=== PATIENT | female | born 1970 | race Caucasian/White ===

== ENCOUNTER 2020-11-03 01:59 | Day surgery (SDC) | payer OTHER, SELFPAY ==
[2020-11-03 09:44] VITALS: BP 142/81; PULSE 80; RESP 18; TEMP 36.1; O2SAT 100
[2020-11-03] MEDS: LACTATED RINGERS 1,000 ML 150 ML IV CONT (09:46)
--- NOTE | 2020-11-03 10:57 | P.PNAN_ITS ---
Anes - Initial Pre Proc Eval Procedure: Operation Date: 11/03/20 11:00 Proposed Procedures p Esophagogastroduodenoscopy - Familia Gonzalez MD Date/Time: 11/03/20 10:57 Surgeon: Familia Gonzalez MD Pre Op Diagnosis: dysphagia Patient Data Age: 50 Gender: F Height: 1.65 m Weight: 100 kg Last Vital Signs Temp 97 F L 11/03/20 09:44 Pulse 80 11/03/20 09:44 Resp 18 11/03/20 09:44 BP 142/81 H 11/03/20 09:44 Pulse Ox 100 11/03/20 09:44 Allergies Allergy/AdvReac Type Severity Reaction Status Date / Time No Known Allergies Allergy Verified 11/03/20 09:41 Home Medications Medication Instructions Recorded Confirmed Type omeprazole magnesium 20 mg 40 mg PO DAILY tablet 10/01/20 11/03/20 History tablet,delayed release Patient hx anesthesia problems: none Family hx anesthesia problems: none [facility] Past Medical History Medical History (Updated 10/01/20 @ 08:50 by Familia Gonzalez MD) Colon cancer screening GERD (gastroesophageal reflux disease) Social History Social History (Updated 10/01/20 @ 08:49 by Familia Gonzalez MD) Smoking status: Never smoker Living arrangements: with family Gender identity (if verbalized by the patient): Female Spiritual care concerns: No Anes - Eval Final PreProcedure Day of Procedure 11/03/20 10:57 Patient weight: obese Heart: regular rate and rhythm Lungs: clear to auscultation Airway: Mallampati scale class II Neurological: alert and oriented Last oral intake: >/= 8 hours ASA classification: II Emergent: no Anesthetic plan: proceed Anesthesia type and monitoring: general GIVS and standard monitoring Informed Consent: The patient's anesthetic plan and its attendant risks and benefits were discussed with the patient/family/POA. Questions were solicited and answers provided to the satisfaction of the patient/family/POA.
--- NOTE | 2020-11-03 11:16 | PM.HPGS ---
History of Present Illness History of Present Illness Consent: Risks, benefits, and alternatives have been discussed and questions answered. Patient agrees to proceed with procedure. Chief complaint: dysphagia Narrative: Franchesca Tran is a 50 year old female intermittent dysphagia to solids but resolved after using omeprazole daily, never had egd Review of Systems Constitutional: Constitutional: Denies headache(s) and Denies weakness Eyes: Eyes: Denies blurry vision ENT: Reports Normal hearing present, Denies headache(s) and Denies neck pain Cardiovascular: Cardiovascular: Denies chest pain and Denies dyspnea Respiratory: Respiratory: Denies dyspnea Gastrointestinal: Gastrointestinal: Reports no additional gastrointestinal complaints Genitourinary: Genitourinary: Denies dysuria Musculoskeletal: Musculoskeletal: Denies neck pain Integumentary/Breasts: Skin/Breast: Denies dry skin Neurologic: Reports Normal hearing present, Denies headache(s) and Denies weakness Psychiatric: Psychiatric: Denies anxiety Endocrine: Endocrine: Denies change in body appearance Hematologic/Lymphatic: Hematologic/Lymphatic: Denies easy bleeding Allergic/Immunologic: Allergic/Immunologic: Denies urticaria PMFSH Past Medical History Medical History (Updated 11/03/20 @ 11:17 by Familia Gonzalez MD) Colon cancer screening Dysphagia GERD (gastroesophageal reflux disease) Social History Social History (Updated 10/01/20 @ 08:49 by Familia Gonzalez MD) Smoking status: Never smoker Living arrangements: with family Gender identity (if verbalized by the patient): Female Spiritual care concerns: No Meds Home Medications and Allergies Home Medications Medication Instructions Recorded Confirmed Type omeprazole magnesium 20 mg 40 mg PO DAILY tablet 10/01/20 11/03/20 History tablet,delayed release Allergies Allergy/AdvReac Type Severity Reaction Status Date / Time No Known Allergies Allergy Verified 11/03/20 09:41 Vital Signs Vital Signs - 24 hr 11/03/20 09:44 Temperature 97 F L Pulse Rate 80 Respiratory Rate 18 Blood Pressure 142/81 H Pulse Oximetry 100 Exam Const: General: comfortable and no acute distress HENMT: General nose exam: Normal nares present Eyes: General: appearance normal, both eyes and all related structures Neck: Neck: no JVD Resp: Auscultation: clear to auscultation bilaterally Cardio: Rate: regular rate Rhythm: regular rhythm GI: Inspection: non-distended GI Palp: Yes Soft to palpation Skin: General skin exam: normal color Neuro: General: gait normal Speech: normal speech Extrem: General: normal to inspection Psych: Mental Status: mental status grossly normal Assessment and Plan Assessment and plan (1) Dysphagia: Code(s): R13.10 - Dysphagia, unspecified Status: Acute Assessment and Plan: egd with bx
[2020-11-03 11:33] VITALS: BP 129/97; PULSE 68; RESP 23; O2SAT 98
[2020-11-03 11:43] VITALS: BP 128/81; PULSE 70; RESP 22; O2SAT 100
[2020-11-03 11:53] VITALS: BP 129/78; PULSE 70; RESP 21; O2SAT 100
== END 2020-11-03 12:14 | disposition home or self-care (01) ==
PROVIDERS: PCP Nurse Practitioner Adult Health; Visit Provider Internal Medicine Gastroenterology
PROC: 0DJ08ZZ Inspection of Upper Intestinal Tract, Via Natural or Artificial Opening Endoscopic (ICD-10-PCS; CPT 43235; principal; 2020-11-03 11:00)
DX: R13.10 Dysphagia, unspecified (principal); K21.9 Gastro-esophageal reflux disease without esophagitis; K29.50 Unspecified chronic gastritis without bleeding
CPT/HCPCS: 43239; 88305; J2704; J7120

== ENCOUNTER 2021-02-17 15:35 | Outpatient (CLI) | payer OTHER, SELFPAY ==
[2021-02-17 15:54] LABS: Hematocrit 35.9 % (37.0-47.0); Hemoglobin 11.2 g/dL (12.0-15.0); Mean Corpuscular HGB Conc 31.2 g/dl (32-36); Mean Corpuscular Hemoglobin 23.9 pg (26-34); Mean Corpuscular Volume 76.7 fl (80-100); Mean Platelet Volume 10.1 fl (7.4-10.4); Platelet Count Result 314 k/mm3 (150-375); Red Blood Count 4.68 M/mm3 (4.2-5.4); Red Cell Distribution Width 14.1 % (11.5-14.5)
[2021-02-17 16:31] LABS: Iron 28 ug/dL (37-170)
[2021-02-17 16:40] LABS: Percent Iron Saturation 6 % (20-50)
== END 2021-02-17 15:36 | disposition home or self-care (01) ==
LOC: ANHLAB 15:38
PROVIDERS: PCP Nurse Practitioner Adult Health; Visit Provider Internal Medicine Hematology & Oncology
DX: D64.9 Anemia, unspecified (principal)
CPT/HCPCS: 36415; 82607; 82728; 83540; 83550; 85027

== ENCOUNTER 2021-07-06 00:23 | Day surgery (SDC) | payer OTHER, SELFPAY ==
[2021-06-29 13:19] VITALS: BMI 33.3
--- NOTE | 2021-06-29 13:26 | PC.NURSE ---
Report to the Outpatient Waiting Room, entrance under the green pavilion located off [facility], at time 0800 on date 07/06/21. OR Time: 1000. - You and your visitor will be asked a series of questions to screen for COVID 19 for your protection. - A mask is required within the hospital. One visitor will be allowed to accompany the patient into the hospital. Patients visitor will be instructed to remain with patient at all times or leave the building. We will allow the visitor to come back to the postoperative area when patient is ready. Preoperative COVID Testing Requirements: No COVID Test needed if: (proof is required; if not received patient will have Rapid Test prior to entry) - Patient has received COVID Vaccine at least 14 days prior to procedure date or - Patient has positive COVID test result within last 90 days of surgery date. COVID Test needed if above criteria is not met Patients may have clear liquids (water, carbonated beverages, clear teas, apple juice) until 3 hours prior to surgery with a maximum of 20 ounces. - No food from midnight until time of surgery Take the following medications with a SIP of water the morning of surgery: NONE Medications to discontinue per physician: N/A Date to take last dose: N/A Please no make-up, nail namibian, hairspray, perfume, deodorant, or body powder the day of surgery. No jewelry (including any body piercings) or valuables the day of surgery, leave them at home. Please take a shower or bath the night before, or the morning of, surgery with an antibacterial soap. Wear comfortable, loose fitting clothing. - Jewelry must be removed prior to entering the operating room. Rings and piercings that are not removed may be cut off. - The hospital will not accept responsibility for valuables. - Please leave all valuables, including medications, at home the day of surgery. If you are going home after surgery, a licensed delivery driver/supervisor must drive you home. - NO public transportation without another adult. - We recommend that an adult stay with you for 24 hours following discharge. - We also recommend that you do not drive, make important decision, drink alcoholic beverages, or take any drugs that were not prescribed by your health care provider for at least 24 hours after your discharge time. Follow any additional instructions given to you from your surgeon. Telephone instructions given to CELINE DAVIS and asked if any additional questions and then verbalized understanding. Patient advised to call surgeon office or pre surgery nurse liaison [phone] if any additional questions.
[2021-07-06] VITALS (7 sets, daily range): BP systolic 107–132; BP diastolic 61–75; PULSE 75–99; RESP 12–22; TEMP 36.4–36.8; O2SAT 95–100
[2021-07-06] MEDS: LACTATED RINGERS 1,000 ML 30 ML IV CONT (08:30)
--- NOTE | 2021-07-06 08:40 | P.PNAN_ITS ---
Anes - Initial Pre Proc Eval Procedure: Operation Date: 07/06/21 10:00 Proposed Procedures p Excision of Mid Forehead Mass - Sy Bill MD Date/Time: 07/06/21 08:40 Surgeon: Sy Bill MD Pre Op Diagnosis: mass mid forehead Patient Data Age: 50 Gender: F Height: 1.65 m Weight: 90.72 kg Allergies Allergy/AdvReac Type Severity Reaction Status Date / Time No Known Allergies Allergy Verified 07/06/21 08:37 Home Medications Medication Instructions Recorded Confirmed Type omeprazole magnesium 20 mg 40 mg PO DAILY tablet 10/01/20 07/06/21 History tablet,delayed release docusate sodium 100 mg capsule 100 mg PO BID #14 cap 06/21/21 07/06/21 Rx hydrocodone 5 mg-acetaminophen 325 1 tablet PO Q6H PRN #30 tablet 06/21/21 07/06/21 Rx mg tablet ondansetron HCl 4 mg tablet 4 mg PO Q6H PRN #30 tablet 06/21/21 07/06/21 Rx Patient hx anesthesia problems: none Family hx anesthesia problems: none Results Review: All pre-operative results and documents have been reviewed as part of the pre-operative evaluation. [facility] Past Medical History Medical History Anemia delivery delivered xs 3 Colon cancer screening Dysphagia GERD (gastroesophageal reflux disease) Surgical History Surgical History History of cholecystectomy (~1998) History of dilation and curettage (~01/2021) History of endometrial ablation (~02/2021) Family History Family History Mother Hypertension Social History Social History Smoking status: Never smoker Alcohol intake: current Alcohol use details: 2/MONTH Substance use: never Substance use type: does not use Living arrangements: with family Gender identity (if verbalized by the patient): Female Sexual Orientation (if Verbalized by the Patient): Straight or Heterosexual Spiritual care concerns: No Anes - Eval Final PreProcedure Day of Procedure 07/06/21 08:40 Patient weight: obese Lungs: clear to auscultation Airway: Mallampati scale class II Neurological: alert and oriented Last oral intake: >/= 8 hours ASA classification: II Emergent: no Anesthetic plan: proceed Anesthesia type and monitoring: general LMA and standard monitoring Results Review: All pre-operative results and documents have been reviewed as part of the pre-operative evaluation. Informed Consent: The patient's anesthetic plan and its attendant risks and benefits were discussed with the patient/family/POA. Questions were solicited and answers provided to the satisfaction of the patient/family/POA.
--- NOTE | 2021-07-06 09:26 | WPDHPUPDATE1 ---
History and Physical Update Update Date/Time: 07/06/21 09:26 History and Physical has been reviewed, including an updated exam of the patient. There are NO changes in the patient's condition. Risks, benefits, and alternatives have been discussed and questions answered. Patient agrees to proceed with procedure.
--- NOTE | 2021-07-06 09:26 | W.PM.PROC2 ---
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 Description of Procedure Preoperatively the risks, benefits, alternatives were discussed in extensive detail. I want her to be very realistic about the risks involved as well as expectations. Made sure answered all of her questions are satisfaction. She understands the risk of inability to raise her brow. Also the risk of permanent numbness of the forehead. She understands these can recur. All questions answered. She voiced a clear understanding. Consent obtained. She was marked in the preoperative holding area with her verification. She would like to attempt uses scarred just at the inferior border of this that she has from child. She was taken to the operating room placed supine on operating table. Anesthesia provided by anesthesiology and prepped and draped in a standard sterile fashion. Surgical time-out was taken. 1% lidocaine with epinephrine was used anesthetize locally. A 15 blade used to excise the previous scar. Dissection was continued down protecting the fibers of the frontalis muscle until the mass was identified. This was removed with osteotome uneventfully. I copiously irrigated with saline solution. I repaired the muscle with 4-0 Monocryl this followed by 5 0 nylon on the skin. She tolerated well. She was woken taken to the PACU without difficulty. All instrument sponge counts were correct at the end of the case. Estimated Blood Loss 5 Drains No Packing No Pathology Yes (Forehead mass) Complications No immediate complications Condition Stable Disposition PACU
[2021-07-06] MEDS: ceFAZolin 2 GM/D5W 50 ML 2 GM/50 ML BAG IVPB (09:33)
[2021-07-06] MEDS: BUPIVACAINE HCL 0.25% PF 30 ML VIAL INFILTRATE (09:57)
[2021-07-06] MEDS: LIDO 1%/EPINEPHRINE/PF 1:200,000 30 ML VIAL XX (09:57)
== END 2021-07-06 11:18 | disposition home or self-care (01) ==
PROVIDERS: PCP Nurse Practitioner Adult Health; Visit Provider Surgery Plastic and Reconstructive Surgery
PROC: (CPT 21499; principal; 2021-07-06 10:00)
DX: M89.9 Disorder of bone, unspecified (principal); K21.9 Gastro-esophageal reflux disease without esophagitis; E66.9 Obesity, unspecified; Z68.36 Body mass index [BMI] 36.0-36.9, adult
CPT/HCPCS: 21499; 88304; 88311; A9270; J0690; J1100; J2250; J2405; J2704; J3010; J7120

== ENCOUNTER 2022-04-23 08:09 | Emergency (ER) | payer OTHER, SELFPAY ==
[2022-04-23 08:17] VITALS: BP 155/86; PULSE 94; RESP 16; TEMP 36; O2SAT 100
[2022-04-23 08:18] VITALS: BP 155/86; PULSE 94; RESP 16; TEMP 36; O2SAT 100
--- NOTE | 2022-04-23 08:37 | ED.URI ---
HPI - URI/Sore Throat General Chief Complaint: Upper Respiratory Infection Stated Complaint: cough, congestion Time Seen by Provider: 04/23/22 08:37 Source: patient, RN notes reviewed and old records reviewed Mode of arrival: ambulatory Limitations: no limitations History of Present Illness HPI Narrative: 51-year-old female who presents to [facility] with complaints of dry cough which was previously productive some sinus drainage and congestion for the past 10 days. Patient reports that she just returned from trip from [place] about 1 week ago. Patient reports that she has taken home Covid test which were negative.X2. Patient reports that she has been taking Sudafed and Claritin and also some Mucinex for her symptoms without resolution in her symptoms. Patient has been vaccinated for COVID and also has had flu shot. MD elicited complaint: cough, rhinorrhea and nasal congestion Onset (ago): day(s) (10) Treatments prior to arrival: other (mucinex, Sudafed and Claritin) Related Data Home Medications Medication Instructions Recorded Confirmed montelukast 10 mg tablet 10 mg PO DAILY 04/23/22 04/23/22 Allergies Allergy/AdvReac Type Severity Reaction Status Date / Time No Known Allergies Allergy Verified 04/23/22 08:17 Review of Systems Review of Systems: CONSTITUTIONAL: Denies malaise, chills, sweats, or fever. EYES: Denies visual changes, redness, or discharge. ENT: Reports rhinorrhea, congestion, sinus pain, no otalgia, no sore throat. CARDIOVASCULAR: Denies chest pain, palpitations, or edema. RESPIRATORY: Reports cough.? Denies any acute dyspnea. GASTROINTESTINAL: Denies abdominal pain, nausea, vomiting, diarrhea SKIN: Denies rash or itching. MUSCULOSKELETAL: Denies myalgia. NEUROLOGIC: Denies headache. All systems reviewed & are unremarkable except as noted in HPI and below PMFSH Past Medical History Medical History Anemia delivery delivered xs 3 Colon cancer screening Dysphagia GERD (gastroesophageal reflux disease) Surgical History Surgical History History of cholecystectomy (~1998) History of dilation and curettage (~01/2021) History of endometrial ablation (~02/2021) Family History Family History Mother Hypertension Social History Social History Smoking status: Never smoker Alcohol intake: current Alcohol use details: 2/MONTH Substance use: never Substance use type: does not use Living arrangements: with family Occupation/Education: occupation Gender identity (if verbalized by the patient): Female Sexual Orientation (if Verbalized by the Patient): Straight or Heterosexual Spiritual care concerns: No Comments At time of signature, agree with nursing past medical, surgical, social and family history. There is no relevant family history pertinent to the presenting complaint Exam Narrative: GENERAL: Well-appearing, well-nourished, and in no acute distress. HEAD: Normocephalic EYES: PERRLA, conjunctivae clear ENT: Nares clear, turbinates edematous and erythematous, clear discharge. Mucous membranes moist. TM pearly gandara with dull light reflex bilaterally; no tragal tenderness. Oropharynx erythematous without lesions. Tonsils not enlarged and without exudate, no drooling, no hoarseness, no trismus, uvula midline. NECK: Supple. No lymphadenopathy CHEST: Clear to auscultation, breath sounds equal. No wheezing, rhonchi, rales, or stridor. No respiratory distress, speaks in full sentences.persistent coughSAO2 100% on room air HEART: Regular rate and rhythm. No murmur heard. SKIN: Warm, dry, no rash. NEURO: Alert and oriented x3. PSYCH: Normal mood and affect Course Course Emergency Course: Patient is aware of diagno
== END 2022-04-23 08:53 | disposition home or self-care (01) ==
PROVIDERS: Emergency Provider Registered Nurse; PCP Nurse Practitioner Adult Health
DX: J32.9 Chronic sinusitis, unspecified (principal); R05.9 Cough, unspecified
CPT/HCPCS: 99213; G0463

== ENCOUNTER 2022-08-18 08:25 | Emergency (ER) | payer OTHER, SELFPAY ==
--- NOTE | 2022-08-18 09:04 | ED.LOWEXIN ---
HPI - Extremity Injury (Lower) General Chief Complaint: Extremity Injury, Lower Stated Complaint: rt knee injury Time Seen by Provider: 08/18/22 08:48 Source: patient and RN notes reviewed Mode of arrival: ambulatory Limitations: no limitations History of Present Illness HPI Narrative: Patient presents today complaining of right knee pain. She initially twisted her knee while moving 2 weeks ago, but was ambulating normally. Today when she went to get out of her car she experienced severe sharp pain to the anterior knee. Denies any traumatic injury or trauma. Denies numbness or tingling in the leg or foot. She currently rates her pain 0/10 at rest, but this increases to 7/10 with weight-bearing. She has tried no [id number] interventions prior to arrival. Related Data Home Medications Medication Instructions Recorded Confirmed omeprazole 40 mg capsule,delayed 40 mg PO DAILY 08/18/22 08/18/22 release Allergies Allergy/AdvReac Type Severity Reaction Status Date / Time No Known Allergies Allergy Verified 08/18/22 08:41 Review of Systems Review of Systems: CONSTITUTIONAL: Denies body aches, fever, chills, or sweats. EYES: Denies visual changes, redness, or discharge. ENT: Denies rhinorrhea, congestion, sore throat, or otalgia. CARDIOVASCULAR: Denies chest pain, palpitations, or edema. RESPIRATORY: Denies cough or dyspnea. GASTROINTESTINAL: Denies abdominal pain, nausea, vomiting, or diarrhea. GENITOURINARY: Denies dysuria or hematuria. SKIN: Denies rash, itching, or wounds. MUSCULOSKELETAL: Denies back pain, or myalgia.+ right knee pain NEUROLOGIC: Denies headache, numbness, tingling, or weakness. PSYCH: Denies depression or anxiety. [facility] Past Medical History Medical History Anemia delivery delivered xs 3 Colon cancer screening Dysphagia GERD (gastroesophageal reflux disease) Surgical History Surgical History History of cholecystectomy (~1998) History of dilation and curettage (~01/2021) History of endometrial ablation (~02/2021) Family History Family History Mother Hypertension Social History Social History Smoking status: Never smoker Alcohol intake: current Alcohol use details: 2/MONTH Substance use: never Substance use type: does not use Living arrangements: with family Occupation/Education: occupation Gender identity (if verbalized by the patient): Female Sexual Orientation (if Verbalized by the Patient): Straight or Heterosexual Spiritual care concerns: No Comments At time of signature, I have reviewed and agree with nursing past medical, surgical, social and family history unless otherwise noted. Please see nursing chart for further information. There is no relevant family history pertinent to the presenting complaint Exam Narrative: GENERAL: Well-appearing, well-nourished, and in no acute distress. HEAD: Normocephalic, atraumatic. EYES: EOMI. No redness or drainage. Conjunctivae normal. ENT: Mucous membranes pink and moist. NECK: Normal AROM. CHEST: No respiratory distress. EXTREMITIES: Right knee: Mild tenderness to the lateral knee. Pain in the posterior knee with flexion. Pain to the lateral knee with internal rotation. Distal sensation intact. Capillary refill normal. Pedal pulse normal. No bony tenderness of the knee. No abnormal movement of the patella. No tenderness of the patellar tendon. SKIN: Warm, dry, no rash. Capillary refill normal. Normal skin turgor. NEURO: No focal deficits. Alert and oriented x3. Gait steady. PSYCH: Normal affect. No signs of depression or anxiety. Course Course Level of Care: Express Care Visit Vital Signs Vital signs: Vital Signs Temp
[2022-08-18 09:09] VITALS: BP 147/80; PULSE 90; RESP 16; TEMP 36.6; O2SAT 100
== END 2022-08-18 09:33 | disposition home or self-care (01) ==
PROVIDERS: Emergency Provider Nurse Practitioner
DX: M25.561 Pain in right knee (principal); K21.9 Gastro-esophageal reflux disease without esophagitis
CPT/HCPCS: 99213; G0463

== ENCOUNTER 2023-04-05 08:30 | Outpatient (CLI) | payer OTHER, SELFPAY ==
[2023-04-05 18:44] LABS: Alanine Aminotransferase 28 U/L (6-35); Albumin Level 4.3 g/dL (3.5-5.1); Alkaline Phosphatase 123 U/L (38-126); Anion Gap 6 mmol/L (8-16); Aspartate Amino Transferase 42 U/L (14-36); Bilirubin,Total 0.6 mg/dL (0.2-1.3); Blood Urea Nitrogen 14 mg/dL (7-17); Calcium 9.5 mg/dL (8.4-10.2); Carbon Dioxide 31 mmol/L (22-30); Chloride 102 mmol/L (98-107); Cholesterol 192 mg/dL (0-200); Estimated Glomerular Filt Rate 58; Glucose 122 mg/dL (65-110); HDL Direct 46 mg/dL; Magnesium 2.2 mg/dL (1.6-2.3); Potassium 3.9 mmol/L (3.4-5.0); Sodium 139 mmol/L (137-145); Triglycerides 150 mg/dL (<150)
[2023-04-05 18:55] LABS: LDL Cholesterol Direct 97 mg/dL
== END 2023-04-05 08:31 | disposition home or self-care (01) ==
LOC: ANHBWCLAB 08:32
PROVIDERS: PCP Nurse Practitioner Adult Health; Visit Provider Nurse Practitioner Adult Health
DX: Z13.9 Encounter for screening, unspecified (principal); E66.9 Obesity, unspecified
CPT/HCPCS: 36415; 80053; 80061; 83036; 83735; 84443

== ENCOUNTER 2023-04-14 12:31 | Outpatient (CLI) | payer OTHER, SELFPAY ==
--- NOTE | 2023-04-14 12:35 | ECHO_ITS ---
Patient Info Name: Franchesca Tran Age: 52 years : 1970 Gender: Female Ht: 65 in Wt: 210 lbs BSA: 2.13 m2 HR: 91 bpm BP: 146 / 92 mmHg Heart Rhythm: Sinus Rhythm Technical Quality: Good Exam Date: 04/14/2023 12:39 PM Exam Location: Echo Lab Patient Status: Outpatient Admit Date: 04/14/2023 Staff Ordering Physician: Jade Moore APRN [employer] Clerk: Lennie Aranda RDCS Attending Provider: Jade Moore APRN Referring Physician: Oscar JOHNSON; Exam Type: CA echo doppler color flow Study Info Indications I34.1 - Nonrheumatic mitral (valve) prolapse Complete two-dimensional, color flow and Doppler transthoracic echocardiogram is performed. Summary 1. Complete two-dimensional, color flow and Doppler transthoracic echocardiogram is performed. 2. Left ventricular chamber dimension is normal. 3. Left ventricular systolic function is normal, estimated at 65-70%. 4. The left ventricular diastolic function is grade II diastolic dysfunction. 5. E/e' 16 is elevated. 6. Left atrial chamber dimension is mildly enlarged. 7. No pulmonary hypertension, estimated pulmonary arterial systolic pressure is 22 mmHg. Left Ventricle E/e' 16 is elevated. Left ventricular chamber dimension is normal. Left ventricular systolic function is normal, estimated at 65-70%. The left ventricular diastolic function is grade II diastolic dysfunction. Right Ventricle Right ventricular chamber dimension is normal. Right ventricular systolic function is normal. Left Atria Left atrial chamber dimension is mildly enlarged. Right Atria Right atrial chamber dimension is normal. Aortic Valve The aortic valve is trileaflet. There is no aortic valve stenosis. There is no aortic valve regurgitation. Pulmonic Valve There is no pulmonic regurgitation. Mitral Valve No mitral valve prolapse. There is no mitral valve stenosis. There is no mitral valve regurgitation. Tricuspid Valve There is no tricuspid valve regurgitation. No pulmonary hypertension, estimated pulmonary arterial systolic pressure is 22 mmHg. Pericardium/Pleural There is no pericardial effusion. Inferior Vena Cava Normal inferior vena cava with >50% collapse upon inspiration consistent with normal right atrial pressure, 5 mmHg. Aorta The aortic root size at the sinus of Valsalva is normal. Left Ventricular Outflow Tract Name Value Normal LVOT 2D LVOT Diameter 2.0 cm LVOT Doppler LVOT Peak Gradient 5 mmHg LVOT Mean Gradient 2 mmHg LVOT VTI 17 cm LVOT VTI/AV VTI Ratio 0.7 LVOT Stroke Volume 56 ml LVOT CO 4.4 l/min LVOT CI 2.1 l/min/m2 Pulmonic Valve Name Value Normal RVOT Doppler RVOT Peak Gradient 2 mmHg PV Doppler
== END 2023-04-14 12:32 | disposition home or self-care (01) ==
LOC: ANHCARD 12:31
PROVIDERS: PCP Nurse Practitioner Adult Health; Visit Provider Nurse Practitioner Adult Health
DX: I34.1 Nonrheumatic mitral (valve) prolapse (principal)
CPT/HCPCS: 93306

== ENCOUNTER 2023-04-27 10:10 | Outpatient (CLI) | payer OTHER, SELFPAY ==
--- NOTE | 2023-05-08 10:49 | WPDHOMESLEEP ---
Sleep Study - Home Unattended Date of Study: 04/27/23 Ordering Provider: Jade Moore APRN Interpreting Provider: Jennifer Garcia MD Home Sleep Study Type: Tasha PARISI Height: 1.65 m Weight: 95.254 kg Body Mass Index: 34.9 Neck Circumference (inches): 15 [place]: 12 Reason for Sleep Study Hypersomnolence; night tears, recurring dreams thinking she is going to Sleep History Franchesca Tran is a 52-year-old woman with excessive daytime sleepiness. She has night terrors with recurring dreams in which she wakes up right before she is about to in her dream. She talks in her sleep. She started metformin 3 weeks before this sleep study, and her heartburn is now gone now using omeprazole 40 mg. Her blood pressure is now back to normal. These abnormal episodes occur almost every night. She occasionally awakens from sleep short of breath. She previously had frequent episodes of waking at night with heartburn, belching or coughing before omeprazole.??She frequently snores, and frequently snores loudly enough that others complain. She occasionally has trouble sleeping when she has a cold. She occasionally wakes up gasping for breath during the night. She occasionally has breathing problems at night witnessed by others. She occasionally sweats excessively at night. She frequently notices her heart pounding or beating irregularly during the night. She occasionally falls asleep during the day. She never falls asleep involuntarily, never falls asleep while driving. She never experiences loss of muscle tone with strong emotion. She occasionally feels paralyzed on waking or falling asleep. She frequently experiences vivid dreams upon waking or falling asleep. She occasionally feels afraid of going to sleep. She frequently has nightmares. She frequently recalls her dreams. She frequently has thoughts racing through her mind. She occasionally feels sad or depressed. She occasionally feels anxiety. She occasionally notices parts of her body jerk. She occasional kicks during the night. She rarely feels crawling or aching feelings in her legs. She rarely feels leg pain at night. She never has morning jaw pain, and occasionally grinds her teeth at night. She rarely feels bothered by pain during the day, is rarely awakened by pain during the night. She frequently wakes up feeling stiff in the morning, occasionally wakes feeling sore or achy in the morning. She occasionally awakens with pain in her neck, spine, or joints. at times she has insomnia. She has fatigue. She takes antacids regularly. Normal bedtime is 10:00 p.m., falling asleep faster than at other times. It can take anywhere between 20 minutes to an hour for her to fall asleep. She typically wakes 3 times during the night, and while awake, goes to the bathroom it is closer to morning. She generally rolls over if it is early in the night and returns to sleep within minutes. These awakenings occur soon after falling asleep and in the early childhood associate teacher hours. Her normal wake time is 5:15 a.m.. On weekends, bedtime is the same, 10:00 p.m. and wake up time is 6:00 a.m.. She estimates getting between 6 and 7 hours of sleep most nights. Sometimes, she takes naps in the afternoon or evening. A short nap lasting 10-15 minutes may be refreshing. Occasionally she awakens feeling refreshed, not always. She feels better in the morning compared to other times of day. Habits:??Tobacco: Never smoker Caffeine: 1 serving per day. Alcohol: none Recreational substances: none PMFSH Past Medical History Medical History (Updated 05/08/23 @ 11:56 by Jennifer Garcia MD) Anemia delivery delivered xs 3 Chronic GERD Colon cancer screening Dysphagia GERD (gastroesophageal reflux disease) IBS (irritable bowel syndrome) Surgical History Surgical History (Updated 05/08/23 @ 11:38 by Jennifer Garcia MD) History of section x 3 History of cholecystectomy (~1998) Hist
[2023-05-08 10:56] VITALS: BMI 34.9
== END 2023-04-27 15:00 | disposition home or self-care (01) ==
LOC: ANHCSM 10:12
PROVIDERS: PCP Nurse Practitioner Adult Health; Visit Provider Nurse Practitioner Adult Health
DX: G47.33 Obstructive sleep apnea (adult) (pediatric) (principal); G47.10 Hypersomnia, unspecified; Z68.34 Body mass index [BMI] 34.0-34.9, adult
CPT/HCPCS: 95800

== ENCOUNTER 2023-05-12 09:04 | Outpatient (CLI) | payer OTHER, SELFPAY ==
--- NOTE | 2023-06-06 14:28 | WPDSLEEPSTUD ---
Sleep Study Date of Study: 05/12/23 Ordering Provider: Jade Moore APRN Interpreting Physician: Cheryl Lock DO Sleep Study Type: CPAP Titration Height: 1.63 m Weight: 94.801 kg Body Mass Index: 35.9 Neck Circumference (inches): 17 [place]: 12 Reason for Sleep Study The patient had a Watch[employer] home sleep test on 04/27/2023 that showed an overall AHI of 20.4 with desaturation down to 83% and suspected atrial fibrillation. Sleep History Franchesca Tran is a 52-year-old woman with excessive daytime sleepiness. She has night terrors with recurring dreams in which she wakes up right before she is about to in her dream.? She talks in her sleep.? She started metformin 3 weeks before this sleep study, and her heartburn is now gone now using omeprazole 40 mg.? Her blood pressure is now back to normal.? These abnormal episodes occur almost every night. She occasionally awakens from sleep short of breath.? She? previously had frequent episodes of waking at night with heartburn, belching or coughing before omeprazole.??She frequently snores, and frequently snores loudly enough that others complain. She occasionally has trouble sleeping when she has a cold.? She occasionally wakes up gasping for breath during the night. She occasionally has breathing problems at night witnessed by others. She occasionally sweats excessively at night. She frequently notices her heart pounding or beating irregularly during the night.? She occasionally falls asleep during the day.? She never falls asleep involuntarily, never falls asleep while driving. She never experiences loss of muscle tone with strong emotion.? She occasionally feels paralyzed on waking or falling asleep. She frequently experiences vivid dreams upon waking or falling asleep. She occasionally feels afraid of going to sleep. She frequently has nightmares. She frequently recalls her dreams. She frequently has thoughts racing through her mind. She occasionally feels sad or depressed. She occasionally feels anxiety. She? occasionally notices parts of her body jerk.? She occasional kicks during the night. She rarely feels crawling or aching feelings in her legs. She rarely feels leg pain at night. She never has morning jaw pain, and? occasionally grinds her teeth at night.? She rarely feels bothered by pain during the day, is rarely awakened by pain during the night. She frequently wakes up feeling stiff in the morning,? occasionally wakes feeling sore or achy in the morning.? She occasionally awakens with pain in her neck, spine, or joints.? at times she has insomnia.? She has fatigue.? She takes antacids regularly. Normal bedtime is? 10:00 p.m., falling asleep faster than at other times.? It can take anywhere between 20 minutes to an hour for her to fall asleep.? She typically wakes 3 times during the night, and while awake, goes to the bathroom it is closer to morning.? She generally rolls over if it is early in the night and returns to sleep within minutes.? These awakenings occur soon after falling asleep and in the special needs child caregiver hours.? Her normal wake time is 5:15 a.m..? On weekends, bedtime is the same, 10:00 p.m. and wake up time is 6:00 a.m..? She estimates getting between 6 and 7 hours of sleep most nights.? Sometimes, she takes naps in the afternoon or evening.? A short nap lasting 10-15 minutes may be refreshing. ? Occasionally she awakens feeling refreshed, not always. She feels better in the morning compared to other times of day. Habits:??Tobacco:? Never smoker? ? ? Caffeine: 1 serving per day. ? Alcohol: none ? ? Recreational substances: none PMFSH Past Medical History Medical History Anemia delivery delivered xs 3 Chronic GERD Colon cancer screening Dysphagia GERD (gastroesophageal reflux disease) IBS (irritable bowel syndrome) Surgical History Surgical History Hist
[2023-06-06 14:35] VITALS: BMI 35.9
== END 2023-05-13 07:35 | disposition home or self-care (01) ==
LOC: ANHCSM 09:05
PROVIDERS: PCP Nurse Practitioner Adult Health; Visit Provider Nurse Practitioner Adult Health
DX: G47.33 Obstructive sleep apnea (adult) (pediatric) (principal); G47.61 Periodic limb movement disorder
CPT/HCPCS: 95811

== ENCOUNTER 2023-05-25 00:59 | Day surgery (SDC) | payer OTHER, SELFPAY ==
[2023-05-05 13:49] VITALS: BMI 34.9
--- NOTE | 2023-05-23 10:09 | SUR.PREOP ---
Patient called regarding upcoming procedure. Reviewed preop instructions, appointment times, and procedure prep.
[2023-05-25 07:12] VITALS: BP 134/77; PULSE 87; RESP 20; TEMP 36.1; O2SAT 99
[2023-05-25] MEDS: LACTATED RINGERS 1,000 ML 150 ML IV CONT (07:37)
[2023-05-25 07:38] LABS: Glucose Point of Care 104 mg/dl (65-105)
--- NOTE | 2023-05-25 08:16 | PM.HPGS ---
History of Present Illness History of Present Illness Consent: Risks, benefits, and alternatives have been discussed and questions answered. Patient agrees to proceed with procedure. Chief complaint: Anemia Narrative: Franchesca Tran is a 52 year old female here for first screening colonoscopy, also had anemia but resolved now, no overt gib Review of Systems Constitutional: Constitutional: Denies headache(s) and Denies weakness Eyes: Eyes: Denies blurry vision ENT: Reports Normal hearing present, Denies headache(s) and Denies neck pain Cardiovascular: Cardiovascular: Denies chest pain and Denies dyspnea Respiratory: Respiratory: Denies dyspnea Gastrointestinal: Gastrointestinal: Reports no additional gastrointestinal complaints Genitourinary: Genitourinary: Denies dysuria Musculoskeletal: Musculoskeletal: Denies neck pain Integumentary/Breasts: Skin/Breast: Denies dry skin Neurologic: Reports Normal hearing present, Denies headache(s) and Denies weakness Psychiatric: Psychiatric: Denies anxiety Endocrine: Endocrine: Denies change in body appearance Hematologic/Lymphatic: Hematologic/Lymphatic: Denies easy bleeding Allergic/Immunologic: Allergic/Immunologic: Denies urticaria PMFSH Past Medical History Medical History Anemia delivery delivered xs 3 Chronic GERD Colon cancer screening Dysphagia GERD (gastroesophageal reflux disease) IBS (irritable bowel syndrome) Surgical History Surgical History History of section x 3 History of cholecystectomy (~1998) History of dilation and curettage (~01/2021) History of endometrial ablation (~02/2021) Family History Family History Mother Hypertension Social History Social History (Updated 05/12/23 @ 08:59 by Concepción Gilbert CMA) Smoking status: Never smoker Alcohol intake: current Alcohol use details: 1-2 drinks monthly Substance use: never Substance use type: does not use Do You Feel Safe in your Home?: Yes Lack of Transportation: No Lack of Food: Never True Current Housing: I Have Housing Concerned About Future Housing: No Difficulty Paying Gas/Electric Bills: No Difficulty Paying for Meds: No Currently Unemployed: No Education: Bachelor's Degree Living arrangements: with family Occupation/Education: occupation Gender identity (if verbalized by the patient): Female Sexual Orientation (if Verbalized by the Patient): Straight or Heterosexual Spiritual care concerns: No Agree to blood products: Yes Meds Home Medications and Allergies Home Medications Medication Instructions Recorded Confirmed Type metformin 500 mg tablet,extended 500 mg PO DAILY #90 tabs 04/06/23 05/12/23 Rx release 24 hr ferrous sulfate 325 mg (65 mg 325 mg PO DAILY 05/05/23 05/12/23 History iron) tablet (Iron (ferrous sulfate)) folic acid 1 mg tablet 1 mg PO DAILY 05/05/23 05/12/23 History mecobalamin (vitamin B12) 1,000 1,000 mcg PO DAILY 05/05/23 05/12/23 History mcg chewable tablet Allergies Allergy/AdvReac Type Severity Reaction Status Date / Time No Known Allergies Allergy Verified 05/25/23 07:09 Vital Signs Vital Signs - 24 hr 05/25/23 07:12 Temperature 97 F L Pulse Rate 87 Respiratory Rate 20 Blood Pressure 134/77 Pulse Oximetry 99 Oxygen Delivery Room Air Exam Const: General: comfortable and no acute distress HENMT: Face/Nose/Sinus: Normal nares present Eyes: General: appearance normal, both eyes and all related structures Neck: Neck: no JVD Resp: Auscultation: clear to auscultation bilaterally Cardio: Rate: regular rate Rhythm: regular rhythm GI: Inspection: non-distended GI Palp: Yes Soft to palpation Skin: General skin exam: normal color Neuro: General: gait normal
--- NOTE | 2023-05-25 08:18 | WPDANESEPPF ---
Anes - Initial Pre Proc Eval Procedure: Operation Date: 05/25/23 08:00 Proposed Procedures p Colonoscopy - Familia Gonzalez MD Date/Time: 05/25/23 08:18 Surgeon: Familia Gonzalez MD Pre Op Diagnosis: Anemia Patient Data Age: 52 Gender: F Height: 1.65 m Weight: 96.3 kg Last Vital Signs Temp 97 F L 05/25/23 07:12 Pulse 87 05/25/23 07:12 Resp 20 05/25/23 07:12 BP 134/77 05/25/23 07:12 Pulse Ox 99 05/25/23 07:12 O2 Del Method Room Air 05/25/23 07:12 Allergies Allergy/AdvReac Type Severity Reaction Status Date / Time No Known Allergies Allergy Verified 05/25/23 07:09 Home Medications Medication Instructions Recorded Confirmed Type metformin 500 mg tablet,extended 500 mg PO DAILY #90 tabs 04/06/23 05/12/23 Rx release 24 hr ferrous sulfate 325 mg (65 mg 325 mg PO DAILY 05/05/23 05/12/23 History iron) tablet (Iron (ferrous sulfate)) folic acid 1 mg tablet 1 mg PO DAILY 05/05/23 05/12/23 History mecobalamin (vitamin B12) 1,000 1,000 mcg PO DAILY 05/05/23 05/12/23 History mcg chewable tablet Laboratory Tests 05/25/23 07:27 POC Capillary Glucose 104 mg/dl (65-105) Patient hx anesthesia problems: none Family hx anesthesia problems: none Results Review: All pre-operative results and documents have been reviewed as part of the pre-operative evaluation. [facility] Past Medical History Medical History Anemia delivery delivered xs 3 Chronic GERD Colon cancer screening Dysphagia GERD (gastroesophageal reflux disease) IBS (irritable bowel syndrome) Surgical History Surgical History History of section x 3 History of cholecystectomy (~1998) History of dilation and curettage (~01/2021) History of endometrial ablation (~02/2021) Family History Family History Mother Hypertension Social History Social History (Updated 05/12/23 @ 08:59 by Concepción Gilbert CMA) Smoking status: Never smoker Alcohol intake: current Alcohol use details: 1-2 drinks monthly Substance use: never Substance use type: does not use Do You Feel Safe in your Home?: Yes Lack of Transportation: No Lack of Food: Never True Current Housing: I Have Housing Concerned About Future Housing: No Difficulty Paying Gas/Electric Bills: No Difficulty Paying for Meds: No Currently Unemployed: No Education: Bachelor's Degree Living arrangements: with family Occupation/Education: occupation Gender identity (if verbalized by the patient): Female Sexual Orientation (if Verbalized by the Patient): Straight or Heterosexual Spiritual care concerns: No Agree to blood products: Yes Anes - Eval Final PreProcedure Day of Procedure 05/25/23 08:18 Patient weight: obese Heart: regular rate and rhythm Lungs: clear to auscultation Airway: Mallampati scale class II Neurological: alert and oriented Last oral intake: >/= 8 hours ASA classification: III Emergent: no Anesthetic plan: proceed Anesthesia type and monitoring: general GIVS and standard monitoring Results Review: All pre-operative results and documents have been reviewed as part of the pre-operative evaluation. Informed Consent: The patient's anesthetic plan and its attendant risks and benefits were discussed with the patient/family/POA. Questions were solicited and answers provided to the satisfaction of the patient/family/POA.
[2023-05-25 08:34] VITALS: BP 106/62; PULSE 81; RESP 16; O2SAT 94
[2023-05-25 08:44] VITALS: BP 117/67; PULSE 77; RESP 25; O2SAT 99
[2023-05-25 08:54] VITALS: BP 120/72; PULSE 71; RESP 16; O2SAT 99
== END 2023-05-25 09:04 | disposition home or self-care (01) ==
PROVIDERS: PCP Nurse Practitioner Adult Health; Visit Provider Internal Medicine Gastroenterology
PROC: 0DJD8ZZ Inspection of Lower Intestinal Tract, Via Natural or Artificial Opening Endoscopic (ICD-10-PCS; CPT 45378; principal; 2023-05-25 08:00)
DX: Z12.11 Encounter for screening for malignant neoplasm of colon (principal); D12.0 Benign neoplasm of cecum; D12.5 Benign neoplasm of sigmoid colon; K64.8 Other hemorrhoids; K57.30 Diverticulosis of large intestine without perforation or abscess without bleeding; D64.9 Anemia, unspecified; K21.9 Gastro-esophageal reflux disease without esophagitis; K58.9 Irritable bowel syndrome, unspecified; E66.9 Obesity, unspecified; Z68.35 Body mass index [BMI] 35.0-35.9, adult; Z79.84 Long term (current) use of oral hypoglycemic drugs; Z98.890 Other specified postprocedural states; Z90.49 Acquired absence of other specified parts of digestive tract
CPT/HCPCS: 45385; 82948; 88305; J2001; J2704; J7120

== ENCOUNTER 2023-07-10 09:11 | Outpatient (CLI) | payer OTHER, SELFPAY ==
[2023-07-10 19:11] LABS: Alanine Aminotransferase 20 U/L (6-35); Albumin Level 4.6 g/dL (3.5-5.1); Alkaline Phosphatase 111 U/L (38-126); Anion Gap 8 mmol/L (4-12); Aspartate Amino Transferase 43 U/L (14-36); Bilirubin,Total 0.6 mg/dL (0.2-1.3); Blood Urea Nitrogen 15 mg/dL (7-17); Calcium 10.1 mg/dL (8.4-10.2); Carbon Dioxide 28 mmol/L (22-30); Chloride 106 mmol/L (98-107); Cholesterol 166 mg/dL (0-200); Estimated Glomerular Filt Rate 58; Glucose 103 mg/dL (65-110); HDL Direct 45 mg/dL; Potassium 4.2 mmol/L (3.4-5.0); Sodium 142 mmol/L (137-145); Triglycerides 144 mg/dL (<150)
[2023-07-10 19:23] LABS: Basophils Absolute Auto 0.1 K/mm3 (0.0-0.1); Basophils Percent Auto 0.8 % (0.2-1.2); Eosinophils Percent Auto 0.5 % (0-4.4); Hematocrit 43.5 % (37.0-47.0); Hemoglobin 13.6 g/dL (12.0-15.0); Immature Granulocyte Absolute 0.02 K/mm3 (0.00-0.031); Immature Granulocyte Percent A 0.2 % (0-0.5); Lymphocytes Absolute Auto 2.49 K/mm3 (0.9-3.2); Lymphocytes Percent Auto 29.4 % (18.3-44.2); Mean Corpuscular HGB Conc 31.3 g/dl (32-36); Mean Corpuscular Hemoglobin 28.9 pg (26-34); Mean Corpuscular Volume 92.4 fl (80-100); Mean Platelet Volume 11.7 fl (7.4-10.4); Monocytes Absolute Auto 0.5 K/mm3 (0.1-0.6); Monocytes Percent Auto 5.4 % (2.6-8.5); Neutrophils Absolute Auto 5.4 K/mm3 (1.3-6.7); Neutrophils Percent Auto 63.7 % (45.5-73.1); Platelet Count Result 236 k/mm3 (150-375); Red Blood Count 4.71 M/mm3 (4.2-5.4); Red Cell Distribution Width 13.1 % (11.5-14.5); White Blood Count 8.5 K/mm3 (4.5-10.0)
[2023-07-10 19:24] LABS: LDL Cholesterol Direct 85 mg/dL
[2023-07-10 19:31] LABS: Iron 76 ug/dL (37-170)
[2023-07-10 20:01] LABS: Vitamin B12 > 1000.0 pg/mL (239-931)
[2023-07-10 21:37] LABS: Hemoglobin A1C 5.6 % (<5.7)
[2023-07-12 13:24] LABS: Red Blood Cell Folate 542 ng/mL RBC (>280)
== END 2023-07-10 09:12 | disposition home or self-care (01) ==
LOC: ANHBWCLAB 09:13
PROVIDERS: PCP Nurse Practitioner Adult Health; Visit Provider Nurse Practitioner Adult Health
DX: D64.9 Anemia, unspecified (principal); R73.03 Prediabetes
CPT/HCPCS: 36415; 80053; 80061; 82607; 82728; 82747; 83036; 83540; 84443; 85025

== ENCOUNTER 2023-09-07 07:53 | Outpatient (CLI) | payer OTHER, SELFPAY ==
[2023-09-07 19:52] LABS: Basophils Percent Auto 0.3 % (0.2-1.2); Eosinophils Percent Auto 0.2 % (0-4.4); Hematocrit 42.6 % (37.0-47.0); Hemoglobin 12.8 g/dL (12.0-15.0); Immature Granulocyte Absolute 0.04 K/mm3 (0.00-0.031); Immature Granulocyte Percent A 0.3 % (0-0.5); Lymphocytes Absolute Auto 2.34 K/mm3 (0.9-3.2); Lymphocytes Percent Auto 18.6 % (18.3-44.2); Mean Corpuscular Hemoglobin 28.2 pg (26-34); Mean Corpuscular Volume 93.8 fl (80-100); Monocytes Absolute Auto 0.8 K/mm3 (0.1-0.6); Neutrophils Absolute Auto 9.4 K/mm3 (1.3-6.7); Neutrophils Percent Auto 74.6 % (45.5-73.1); Platelet Count Result 256 k/mm3 (150-375); Red Blood Count 4.54 M/mm3 (4.2-5.4); Red Cell Distribution Width 13.6 % (11.5-14.5); White Blood Count 12.6 K/mm3 (4.5-10.0)
[2023-09-07 19:56] LABS: Iron 61 ug/dL (37-170)
[2023-09-07 20:03] LABS: Alanine Aminotransferase 14 U/L (6-35); Albumin Level 4.5 g/dL (3.5-5.1); Alkaline Phosphatase 117 U/L (38-126); Anion Gap 8 mmol/L (4-12); Aspartate Amino Transferase 33 U/L (14-36); Bilirubin,Total 0.9 mg/dL (0.2-1.3); Blood Urea Nitrogen 14 mg/dL (7-17); Calcium 9.5 mg/dL (8.4-10.2); Carbon Dioxide 28 mmol/L (22-30); Chloride 105 mmol/L (98-107); Estimated Glomerular Filt Rate 58; Glucose 103 mg/dL (65-110); Potassium 3.6 mmol/L (3.4-5.0); Sodium 141 mmol/L (137-145)
[2023-09-07 20:12] LABS: Percent Iron Saturation 15 % (20-50)
[2023-09-07 21:02] LABS: Folic Acid > 20.0 ng/mL (2.76->20)
[2023-09-08 10:18] LABS: FSH 42.1 mIU/mL; LH 24.1 mIU/mL; Progesterone <0.5 ng/mL
[2023-09-16 21:59] LABS: Estradiol, Ultrasensitive 13 pg/mL
== END 2023-09-07 07:54 | disposition home or self-care (01) ==
PROVIDERS: Internal Medicine Hematology & Oncology; PCP Nurse Practitioner Adult Health; Visit Provider Obstetrics & Gynecology
DX: D64.9 Anemia, unspecified (principal); R23.2 Flushing
CPT/HCPCS: 36415; 80053; 82607; 82670; 82728; 82746; 83001; 83002; 83540; 83550; 84144; 85025

== ENCOUNTER 2024-03-15 09:44 | Outpatient (CLI) | payer OTHER, SELFPAY ==
[2024-03-15 09:54] LABS: Hematocrit 40.7 % (37.0-47.0); Hemoglobin 13.5 g/dL (12.0-15.0); Mean Corpuscular HGB Conc 33.2 g/dl (32-36); Mean Corpuscular Hemoglobin 29.2 pg (26-34); Mean Corpuscular Volume 88.1 fl (80-100); Platelet Count Result 218 k/mm3 (150-375); Red Blood Count 4.62 M/mm3 (4.2-5.4); Red Cell Distribution Width 12.3 % (11.5-14.5); White Blood Count 9.5 K/mm3 (4.5-10.0)
[2024-03-15 10:27] LABS: Iron 54 ug/dL (37-170)
[2024-03-15 10:37] LABS: Percent Iron Saturation 12 % (20-50)
[2024-03-15 11:34] LABS: Folic Acid 13.3 ng/mL (2.76->20); Vitamin B12 > 1000.0 pg/mL (239-931)
== END 2024-03-15 09:45 | disposition home or self-care (01) ==
LOC: ANHLAB 09:46
PROVIDERS: PCP Nurse Practitioner Adult Health; Visit Provider Internal Medicine Hematology & Oncology
DX: D64.9 Anemia, unspecified (principal)
CPT/HCPCS: 36415; 82607; 82728; 82746; 83540; 83550; 85027

== ENCOUNTER 2024-03-19 09:28 | Emergency (ER) | payer OTHER, SELFPAY ==
--- NOTE | ~2024-03-19 | XR_ITS ---
Clinical Indication: Cough PA and lateral views of the chest: Comparison: None Findings: The lungs are clear, without evidence of focal consolidation or pleural effusion. Cardiome diastinal silhouette is within normal limits. Bones and soft tissues are unremarkable. Impression: Normal chest. Reviewed, dictated and finalized at location . [facility] Impression: Normal chest.
[2024-03-19 09:32] VITALS: BP 121/78; PULSE 71; RESP 20; TEMP 36.3; O2SAT 100
--- NOTE | 2024-03-19 09:56 | ED.GENADULT ---
HPI - General Adult General Chief complaint: Upper Respiratory Infection Stated complaint: Cough/Eye Problem/Sore Throat Source: patient Mode of arrival: ambulatory Limitations: no limitations History of Present Illness HPI narrative: Patient presents for evaluation of sick symptoms since 03/13/2024. Symptoms include sinus congestion, postnasal drainage, cough, hoarse voice and sore throat. No fever, chills, nausea, vomiting, diarrhea. She has been taking sudafed for her symptoms. She does not smoke. Related Data Home Medications ?Medication ?Instructions ?Recorded ?Confirmed ?Last Taken ?Type folic acid 1 mg tablet 1 mg PO DAILY 05/05/23 02/01/24 Unknown History mecobalamin (vitamin B12) 1,000 1,000 mcg PO DAILY 05/05/23 02/01/24 Unknown History mcg chewable tablet ferrous sulfate 325 mg (65 mg 325 mg PO BID 11/06/23 02/01/24 Unknown History iron) tablet (Iron (ferrous sulfate)) Allergies Allergy/AdvReac Type Severity Reaction Status Date / Time No Known Allergies Allergy Verified 03/19/24 09:31 Review of Systems Review of Systems: CONSTITUTIONAL: Denies fever, chills, or sweats. EYES: Denies visual changes, redness, or discharge. ENT: Reports sore throat, sinus congestion and postnasal drainage. Denies otalgia CARDIOVASCULAR: Denies chest pain, palpitations, or edema. RESPIRATORY: Reports cough. Denies SOB. GASTROINTESTINAL: Denies abdominal pain, nausea, vomiting, or diarrhea. GENITOURINARY: Denies dysuria or hematuria. SKIN: Denies rash or itching. MUSCULOSKELETAL: Denies back pain, joint pain, or myalgia. NEUROLOGIC: Denies headache, numbness, dizziness, or weakness. PSYCHIATRIC: Denies anxiety or depression. FORMERLY [facility], [facility] Past Medical History Medical History IBS (irritable bowel syndrome) Chronic GERD Anemia delivery delivered xs 3 Dysphagia Colon cancer screening GERD (gastroesophageal reflux disease) Surgical History Surgical History H/O knee surgery History of section x 3 History of cholecystectomy (~1998) History of dilation and curettage (~01/2021) History of endometrial ablation (~02/2021) Family History Family History Mother Hypertension Social History Social History Smoking status: Never smoker Alcohol intake: never Substance use: never Substance use type: does not use Do You Feel Safe in your Home?: Yes Lack of Transportation: No Lack of Food: Never True Current Housing: I Have Housing Concerned About Future Housing: No Difficulty Paying Gas/Electric Bills: No Difficulty Paying for Meds: No Currently Unemployed: No Education: Bachelor's Degree Living arrangements: with family Occupation/Education: occupation Gender identity (if verbalized by the patient): Female Sexual Orientation (if Verbalized by the Patient): Straight or Heterosexual Spiritual care concerns: No Agree to blood products: Yes Exam Narrative: GENERAL: Well-appearing, well-nourished, and in no acute distress. HEAD: Normocephalic, atraumatic. EYES: PERRLA and EOMI. ENT: Nares clear, no rhinorrhea or epistaxis. Mucous membranes moist. Oropharynx without tonsillar hypertrophy exudate or other lesions. Bilateral TMs pearly gandara nonbulging NECK: Supple. No adenopathy or masses. No carotid bruits or JVD CHEST: Clear to auscultation. No respiratory distress. No wheezes rales or rhonchi HEART: Regular rate and rhythm. No murmur heard. Normal peripheral pulses. ABDOMEN: Soft, nontender, nondistended, normal active bowel sounds. EXTREMITIES: Normal range of motion. No edema. SKIN: Warm, dry, no rash. NEURO: No focal deficits. Alert and oriented x3. PSYCH: Normal mood and affect. Course Course Emergency Course: This is a 54-year-old female who presented for evaluation of sick symptoms. COVID influenza negative. Chest x-ray normal. Exam is consistent with acute viral syndrome. Increase hydration. [id number]-[id number] agents for symptom management. Follow up with primary provider. Go to the ER for worsening symptoms. Patient in agreement with care plan Level of Care: Express Care Visit Vital Signs Vital signs: Vital Signs Temperature 36.3 C L 03/19/24 09:32 Pulse Rate 71 03/19/24 09:32 Respiratory Rate 20 03/19/24 09:32 Blood Pressure 121/78 03/19/24 09:32 Pulse Oximetry 100 03/19/24 09:32 Oxygen Delivery Room Air 03/19/24 09:32 Temperature 36.3 C L 03/19/24 09:32 Pulse Rate 71 03/19/24 09:32 Respiratory Rate 20 03/19/24 09:32 Blood Pressure 121/78 03/19/24 09:32 Pulse Oximetry 100 03/19/24 09:32 Oxygen Delivery Room Air 03/19/24 09:32 Medical Decision Making Vital Signs Vital Signs: Vital Signs Temperature 36.3 C L 03/19/24 09:32 Pulse Rate 71 03/19/24 09:32 Respiratory Rate 20 03/19/24 09:32 Blood Pressure 121/78 03/19/24 09:32 Pulse Oximetry 100 03/19/24 09:32 Oxygen Delivery Room Air 03/19/24 09:32 Temperature 36.3 C L 03/19/24 09:32 Pulse Rate 71 03/19/24 09:32 Respiratory Rate 20 03/19/24 09:32 Blood Pressure 121/78 03/19/24 09:32 Pulse Oximetry 100 03/19/24 09:32 Oxygen Delivery Room Air 03/19/24 09:32 Lab Data Labs: Lab Results 03/19/24 Range/Units 09:35 POC Influenza A Ag Negative (Negative) POC Influenza B Ag Negative (Negative) POC SARS CoV-2 Ag Negative (Negative) Imaging Data Radiologist's impression: Date of Service: 03/19/24 Procedure(s): XR chest 2V Accession Number(s): [id number] cc: Shamar Loo APRN; Jade Moore APRN~ Clinical Indication: Cough PA and lateral views of the chest: Comparison: None Findings: The lungs are clear, without evidence of focal consolidation or pleural effusion. Cardiomediastinal silhouette is within normal limits. Bones and soft tissues are unremarkable. Impression: Normal chest. Discharge Plan Discharge Clinical Impression: Acute viral syndrome Patient Disposition: Home, Self-Care Condition: Stable Instructions: Antibiotic Form, Upper Respiratory Infection (ED) Patient Language: Japanese Prescriptions: No Action ferrous sulfate [Iron (ferrous sulfate)] 325 mg (65 mg iron) tablet 325 mg PO BID folic acid 1 mg Tablet 1 mg PO DAILY mecobalamin (vitamin B12) 1,000 mcg Tablet,Chewable 1,000 mcg PO DAILY metformin 500 mg tablet extended release 24 hr 500 mg PO DAILY Qty: 90 3RF Follow-up/Referrals: Jade Moore APRN [Primary Care Provider] - Time of Disposition: 10:23
[2024-03-19 09:58] LABS: EDCOVIDSCREEN Negative (Negative); EDINFLUASCREEN Negative (Negative); EDINFLUBSCREEN Negative (Negative)
--- OUTSIDE RECORDS SUMMARY | 2024-03-26 17:06 | XMS_ITS | Encounter Summary ---
Author Organization [facility] Address [address] [place] [address] Care Team Providers Care Production Machine Operator Name Role Phone Jade Moore JOLIE Primary Care Provider [phone] Encounter Details Date Type Department Care Team (Late st Contact Info) Description 09/08/2023 Orders Only [facility] [address] [place] [id number] Scanning, Provider Social History Tobacco Use Types Packs/Day Years Used Date Smoking Tobacco: Never Smokeless Tobacco: Never Sex and Gender Information Value Date Recorded Sex Assigned at Not on file Gender Identity Not on file Sexual Orientation Not on file documented as of this encounter Plan of Treatment Upcoming Encounters Date Type Department Care Team (Late st Contact Info) Description 03/28/2024 11:00 AM TOY MECHANIC Office Visit [facility] - [place] [address] [place] [address] Kris Molina MD [address] [facility] [address] [place] [address] documented as of this encounter Procedures Procedure Name Priority Date/Time Associated Diagnosis Comments COMPREHENSIVE METABOLIC PANEL Routine 09/07/2023 9:55 AM CDT documented in this encounter Results * COMPREHENSIVE METABOLIC PANEL (09/07/2023 9:55 AM CDT) Blood Provider Scanning CHEMISTRY ORDERABLES documented in this encounter Visit Diagnoses Not on filedocumented in this encounter Care Teams Production Machine Operator Relationship Specialty Start Date End Date Jade Moore ANP [address] [address] PCP - General Nurse Practitioner Adult Health 02/17/21 documented as of this encounter
--- OUTSIDE RECORDS SUMMARY | 2024-03-26 17:06 | XMS_ITS | Encounter Summary ---
Author Organization [facility] Address [address] [place] [address] Care Team Providers Care Winding Machine Operator Name Role Phone Jade Moore Primary Care Provider [phone] Encounter Details Date Type Department Care Team (Late st Contact Info) Description 05/05/2023 External Device Data STL ABSTRACTION Provider, Abstract NO ADDRESS ON FILE Social History Tobacco Use Types Packs/Day Years Used Date Smoking Tobacco: Never Smokeless Tobacco: Never Sex and Gender Information Value Date Recorded Sex Assigned at Not on file Gender Identity Not on file Sexual Orientation Not on file documented as of this encounter Plan of Treatment Upcoming Encounters Date Type Department Care Team (Late st Contact Info) Description 03/28/2024 11:00 AM VOLTAGE REGULATOR ASSEMBLER Office Visit [facility] Oncology and Hematology - [place] [address] [facility] [address] [place] [address] Kris Molina MD [address] [facility] [address] [place] [address] documented as of this encounter Visit Diagnoses Not on filedocumented in this encounter Care Teams Winding Machine Operator Relationship Specialty Start Date End Date Jade Moore ANP [address] [facility] [address] [place] [address] PCP - General Nurse Practitioner Adult Health 02/17/21 documented as of this encounter
--- OUTSIDE RECORDS SUMMARY | 2024-03-26 17:06 | XMS_ITS | Encounter Summary ---
Author Organization [facility] Address [address] [place] [address] Care Team Providers Care Child Support Officer Name Role Phone Jade Moore Primary Care Provider [phone] Encounter Details Date Type Department Care Team (Late st Contact Info) Description 03/21/2023 External Device Data STL ABSTRACTION Provider, Abstract [...] st Contact Info) Description 03/28/2024 11:00 AM DRY WALL FINISHER Office Visit [facility] Oncology and Hematology - [place] [address] [facility] [address] [place] [address] Kris Molina MD [address] [facility] [address] [place] [address] documented as of this encounter Visit Diagnoses Not on filedocumented in this encounter Care Teams Child Support Officer Relationship Specialty Start Date End Date Jade Moore ANP [address] [facility] [address] [place] [address] PCP - General Nurse Practitioner Adult Health 02/17/21 documented as of this encounter
--- OUTSIDE RECORDS SUMMARY | 2024-03-26 17:06 | XMS_ITS | Encounter Summary ---
Author Organization [facility] Address [address] [facility] [facility] Attn: [place] [address] Care Team Providers Care Quality Control Auditor Name Role Phone Jade Moore JOLIE Primary Care Provider [phone] Encounter Details Date Type Department Care Team (Late st Contact Info) Description 03/10/2023 Orders Only Initial Department [address] ATTN: [place] [address] Provider, Historical Social History Tobacco Use Types Packs/Day Years Used Date Smoking Tobacco: Never Smokeless Tobacco: Never Sex and Gender Information Value Date Recorded Sex Assigned at Not on file Gender Identity Not on file Sexual Orientation Not on file documented as of this encounter Plan of Treatment Upcoming Encounters Date Type Department Care Team (Late st Contact Info) Description 03/28/2024 11:00 AM STRATEGY INTERN Office Visit [facility] Oncology and Hematology - [place] [address] [facility] [address] [place] [address] Kris Molina MD [address] [facility] [address] [place] [address] documented as of this encounter Procedures Procedure Name Priority Date/Time Associated Diagnosis Comments CBC WITH DIFFERENTIAL Routine 03/10/2023 2:32 PM STRATEGY INTERN documented in this encounter Results * (ABNORMAL) CBC WITH DIFFERENTIAL (03/10/2023 2:32 PM STRATEGY INTERN) WBC 11.3(H) 3.8 - 10.8 Thousand/u L [facility] RBC 4.56 3.80 - 5.10 Million/uL [facility] HEMOGLOBIN 13.2 11.7 - 15.5 g/dL [facility] HEMATOCRIT 39.8 35.0 - 45.0 % [facility] MCV 87.3 80.0 - 100.0 fL [facility] MCH 28.9 27.0 - 33.0 pg [facility] MCHC 33.2 32.0 - 36.0 g/dL [facility] RDW 12.7 11.0 - 15.0 % [facility] PLATELETS 269 140 - 400 Thousand/u L [facility] MPV 11.4 7.5 - 12.5 fL [facility] NEUTROPHIL ABSOLUTE 7,119 1,500 - 7,800 cells/uL [facility] LYMPHOCYTE ABSOLUTE 3,424 850 - 3,900 cells/uL [facility] MONOCYTE ABSOLUTE 565 200 - 950 cells/uL [facility] EOSINOPHIL ABSOLUTE 113 15 - 500 cells/uL [facility] BASOPHILS ABSOLUTE 79 0 - 200 cells/uL [facility] NEUTROPHIL 63 % [facility] LYMPHOCYTES 30.3 % [facility] MONOCYTE 5.0 % [facility] EOSINOPHILS 1.0 % [facility] BASOPHILS 0.7 % [facility] Comment: Test Performed at: [facility] [address] [facility] [place] ??[id number] Laxmi Vaz MD 03/10/2023 2:32 PM STRATEGY INTERN 03/10/2023 2:34 PM STRATEGY INTERN Kris Molina MD HEMATOLOGY ORDERABLE S [facility] [phone] [facility] [address] [place] [address] documented in this encounter Visit Diagnoses Not on filedocumented in this encounter Care Teams Quality Control Auditor Relationship Specialty Start Date End Date Vincent, Jade, ANP [address] [address] PCP - General Nurse Practitioner Adult Health 02/17/21 documented as of this encounter
--- OUTSIDE RECORDS SUMMARY | 2024-03-26 17:06 | XMS_ITS | Clinical Summary ---
Author Organization [facility] Address [address] [place] [address] Care Team Providers Care Bulk Sealer Name Role Phone Sathyajose fJade Primary Care Provider [phone] Allergies No known active allergies Medications Medication Sig Dispensed Refills Start Date End Date Status omeprazole (PriLOSEC) 40 mg Capsule, Delayed Release(E.C.) Take 20 mg by mouth daily. Active ferrous sulfate 325 mg (65 mg iron) tablet Take 325 mg by mouth daily. Active metFORMIN (GLUCOPHAGE XR) 500 mg Extended Release 24 hour tablet Take 1 Tablet by mouth daily. 06/30/2023 Active Active Problems Problem Noted Date Diagnosed Date Iron deficiency anemia 02/17/2021 Encounters Date Type Department Care Team Description 03/22/2024 Orders Only [facility] Oncology and Hematology - [place] [address] [place] [address] Kris Molina MD from Last 3 Months Immunizations Name Administration Dates Next Due (SANIA) COVID-19 VACCINE - EMERGENCY USE AUTHORIZATION, AD26,COV2S(PF) 0.5 ML IM SUSP 05/22/2020 Social History Tobacco Use Types Packs/Day Years Used Date Smoking Tobacco: Never Smokeless Tobacco: Never Tobacco Cessation:Counseling Given: Not Answered Sex and Gender Information Value Date Recorded Sex Assigned at Not on file Gender Identity Not on file Sexual Orientation Not on file Last Filed Vital Signs Vital Sign Reading Time Taken Comments Blood Pressure 127/84 09/14/2023 10:05 AM CDT Pulse 74 09/14/2023 10:05 AM CDT Temperature 36.8 ??C (98.2 ??F) 09/14/2023 10:05 AM C DT Respiratory Rate 18 09/14/2023 10:05 AM CDT Oxygen Saturation 97% 09/14/2023 10:05 AM CDT Inhaled Oxygen Concentration - - Weight 93 kg (205 lb) 09/14/2023 10:05 AM CDT Height 165.1 cm (5' 5 ) 11/30/2021 11:51 AM CDT Body Mass Index 34.11 11/30/2021 11:51 AM CDT Plan of Treatment Upcoming Encounters Date Type Department Care Team (Late st Contact Info) Description 03/28/2024 11:00 AM SENIOR PARTNER Office Visit [facility] Oncology and Hematology - [place] [address] [facility] [address] [place] [address] Kris Molina MD [address] [facility] [address] [place] [address] Health Maintenance Due Date Last Done Comments Pre-Diabetes and Diabetes Screening 1971 DTAP/TDAP/TD VACCINES (1 - Tdap) 09/05/1990 HEPATITIS B VACCINES (1 of 3 - 19+ 3-dose series) 09/05/1990 CERVICAL CANCER SCREENING 09/05/2001 BREAST CANCER SCREENING 2011 COLORECTAL SCREENING 09/05/2016 Colorectal Cancer Screening 09/05/2016 FIT-DNA Q 3 years 09/05/2016 FIT/FOBT Q 1 year 09/05/2016 Flex Sig/CT Colonography Q 5 years 09/05/2016 ZOSTER VACCINE (1 of 2) 09/05/2021 INFLUENZA VACCINE (#1) 2023 COVID-19 Vaccine (2 - 2023-2 5 season) 2023 05/22/2020 Preventative Visit- Commercial 03/20/2024 PNEUMOCOCCAL VACCINE 0-64 YEARS Aged Out No longer eligible based on patient's age to complete this topic Procedures Procedure Name Priority Date/Time Associated Diagnosis Comments IRON PANEL Routine 03/15/2024 1:05 PM SENIOR PARTNER IRON PANEL Routine 03/15/2024 1:04 PM SENIOR PARTNER from Last 3 Months Results * IRON PANEL (03/15/2024 1:05 PM SENIOR PARTNER) Only the most recent of2 resultswithin the time period is included. Blood Kris Molina MD CHEMISTRY ORDERABLES from Last 3 Months Care Teams Bulk Sealer Relationship Specialty Start Date End Date Jade Moore ANP [address] [address] PCP - General Nurse Practitioner Adult Health 02/17/21
--- OUTSIDE RECORDS SUMMARY | 2024-03-26 17:06 | XMS_ITS | Encounter Summary ---
Author Organization [facility] Address [address] [place] [address] Care Team Providers Care Hydraulic Specialist Name Role Phone Jade Moore Primary Care Provider [phone] Encounter Details Date Type Department Care Team (Late st Contact Info) Description 05/08/2023 External Device Data STL ABSTRACTION Provider, Abstract [...] st Contact Info) Description 03/28/2024 11:00 AM STORE PROTECTION SPECIALIST Office Visit [facility] Oncology and Hematology - [place] [address] [facility] [address] [place] [address] Kris Molina MD [address] [facility] [address] [place] [address] documented as of this encounter Visit Diagnoses Not on filedocumented in this encounter Care Teams Hydraulic Specialist Relationship Specialty Start Date End Date Jade Moore ANP [address] [facility] [address] [place] [address] PCP - General Nurse Practitioner Adult Health 02/17/21 documented as of this encounter
--- OUTSIDE RECORDS SUMMARY | 2024-03-26 17:06 | XMS_ITS | Encounter Summary ---
Author Organization [facility] Address [address] [place] [address] Care Team Providers Care Wire Harness Design Engineer Name Role Phone Jade Moore Primary Care Provider [phone] Encounter Details Date Type Department Care Team (Late st Contact Info) Description 05/11/2023 External Device Data STL ABSTRACTION Provider, Abstract [...] st Contact Info) Description 03/28/2024 11:00 AM MUSIC MINISTER Office Visit [facility] Oncology and Hematology - [place] [address] [facility] [address] [place] [address] Kris Molina MD [address] [facility] [address] [place] [address] documented as of this encounter Visit Diagnoses Not on filedocumented in this encounter Care Teams Wire Harness Design Engineer Relationship Specialty Start Date End Date Jade Moore ANP [address] [facility] [address] [place] [address] PCP - General Nurse Practitioner Adult Health 02/17/21 documented as of this encounter
--- OUTSIDE RECORDS SUMMARY | 2024-03-26 17:06 | XMS_ITS | Encounter Summary ---
Author Organization [facility] Address [address] [place] [address] Care Team Providers Care Cellar Supervisor Name Role Phone Jade Moore Primary Care Provider [phone] Encounter Details Date Type Department Care Team (Late st Contact Info) Description 11/14/2023 External Device Data STL ABSTRACTION Provider, Abstract [...] st Contact Info) Description 03/28/2024 11:00 AM SINGLE NEEDLE OPERATOR Office Visit [facility] Oncology and Hematology - [place] [address] [facility] [address] [place] [address] Kris Molina MD [address] [facility] [address] [place] [address] documented as of this encounter Visit Diagnoses Not on filedocumented in this encounter Care Teams Cellar Supervisor Relationship Specialty Start Date End Date Jade Moore ANP [address] [facility] [address] [place] [address] PCP - General Nurse Practitioner Adult Health 02/17/21 documented as of this encounter
--- OUTSIDE RECORDS SUMMARY | 2024-03-26 17:06 | XMS_ITS | Encounter Summary ---
Author Organization [facility] Address [address] [place] [address] Care Team Providers Care Director Sterile Processing Name Role Phone Jade Moore Primary Care Provider Encounter Details Date Type Department Care Team (Late st Contact Info) Description 11/15/2023 External Device Data STL ABSTRACTION Provider, Abstract [...] st Contact Info) Description 03/28/2024 11:00 AM SKI MAKER WOOD Office Visit [facility] Oncology and Hematology - [place] [address] [facility] [address] [place] [address] Kris Molina MD [address] [facility] [address] [place] [address] documented as of this encounter Visit Diagnoses Not on filedocumented in this encounter Care Teams Director Sterile Processing Relationship Specialty Start Date End Date Jade Moore ANP [address] [facility] [address] [place] [address] PCP - General Nurse Practitioner Adult Health 02/17/21 documented as of this encounter
--- OUTSIDE RECORDS SUMMARY | 2024-03-26 17:06 | XMS_ITS | Encounter Summary ---
Author Organization [facility] Address [address] [place] [address] Care Team Providers Care Student Activities Director Name Role Phone Jade Moore Primary Care Provider [phone] Encounter Details Date Type Department Care Team (Late st Contact Info) Description 12/12/2023 External Device Data STL ABSTRACTION Provider, Abstract [...] st Contact Info) Description 03/28/2024 11:00 AM COLLECTOR OF PORT Office Visit [facility] Oncology and Hematology - [place] [address] [facility] [address] [place] [address] Kris Molina MD [address] [facility] [address] [place] [address] documented as of this encounter Visit Diagnoses Not on filedocumented in this encounter Care Teams Student Activities Director Relationship Specialty Start Date End Date Jade Moore ANP [address] [facility] [address] [place] [address] PCP - General Nurse Practitioner Adult Health 02/17/21 documented as of this encounter
--- OUTSIDE RECORDS SUMMARY | 2024-03-26 17:06 | XMS_ITS | Encounter Summary ---
Author Organization [facility] Address [address] [place] [address] Care Team Providers Care Sanding Machine Buffer Name Role Phone Sathyajose f Jade DAVE Primary Care Provider [phone] Reason for Visit * Reason Comments Follow Up Encounter Details Date Type Department Care Team (Late st Contact Info) Description 03/15/2023 11:00 AM SHUTTLE OPERATOR Office Visit [facility] Oncology and Hematology - [place] [address] [place] [address] Nithin Bennett MD [address] [place] [address] Chronic anemia (Primary Dx) Social History Tobacco Use Types Packs/Day Years Used Date Smoking Tobacco: Never Smokeless Tobacco: Never Tobacco Cessation:Counseling Given: Not Answered Sex and Gender Information Value Date Recorded Sex Assigned at Not on file Gender Identity Not on file Sexual Orientation Not on file documented as of this encounter Last Filed Vital Signs Vital Sign Reading Time Taken Comments Blood Pressure 156/97 03/15/2023 10:50 AM SHUTTLE OPERATOR Pulse 90 03/15/2023 10:49 AM SHUTTLE OPERATOR Temperature 35.8 ??C (96.4 ??F) 03/15/2023 10:[address] Respiratory Rate 10 03/15/2023 10:49 AM SHUTTLE OPERATOR Oxygen Saturation - - Inhaled Oxygen Concentration - - Weight 103.9 kg (229 lb) 03/15/2023 10:49 AM SHUTTLE OPERATOR Height - - Body Mass Index 38.11 11/30/2021 11:51 AM CDT documented in this encounter Progress Notes * Nithin Bennett MD - 03/15/2023 10:59 AM CST HISTORY OF PRESENT ILLNESS Franchesca Tran, a 52 y.o. female presents with a Chief Complaint of Follow Up Subjective HPI Patient menstrual cycle is improved and only having it every 6 month. She had uterine ablation on around 2021 . She is taking oral iron supplment every day . She had EGD around 2020 no significant bleeding source. She had history of food stuck in the throatand found to have acid reflex. She is still on omeprazole for about 2 to 3 years. She never had colonoscopy done but had the cologard test was done. She had right knee surgery on dec 20, 2022 for meniscus repaired. She is on PT. She is over due for mammogram. REVIEW OF SYSTEMS Review of Systems Objective PHYSICAL EXAM BP (!) 156/97 (BP Location: Arterial, Patient Position (BP): Sitting) Pulse 90 Temp (!) 96.4 ??F (35.8 ??C) Resp 10 Wt 103.9 kg (229 lb) BMI 38.11 kg/m?? Physical Exam Constitutional: Appearance: Normal appearance. She is obese. HENT: Head: Normocephalic and atraumatic. Mouth/Throat: Mouth: Mucous membranes are moist. Eyes: Extraocular Movements: Extraocular movements intact. Pupils: Pupils are equal, round, and reactive to light. Cardiovascular: Rate and Rhythm: Normal rate and regular rhythm. Pulmonary: Effort: Pulmonary effort is normal. Breath sounds: Normal breath sounds. Abdominal: Palpations: Abdomen is soft. Musculoskeletal: General: Normal range of motion. Skin: General: Skin is warm. Neurological: General: No focal deficit present. Mental Status: She is alert and oriented to person, place, and time. Assessment Iron deficiency anemia. This is likely secondary to heavy menstrual bleeding. She has received ironinfusion on March 03, 2021. She is on slow release iron to the every day. Her hb is normal. Ferritin is stable around 48 Vitamin B12 deficiency. B12 level stable. She will continue vitamin B12 daily. Folic acid is also normal now. She will continue folic acid 0.4 mg 3 times a week. History of menstrual bleeding status post ablation in February 2021. She just started having slightmenstrual bleeding. She will follow-up with her heel seat flap stapler. Health screening : she is overdue for mammogram and colonscopy and recommend to follow with PCP to arrange it Plan : Continue the iron supplement orally daily Follow up in 6 month with ferritin level, iron panel, b12 and folate level. Recommend to arrange colonoscopy and mammogram with her pcp. TLE OPERATOR documented in this encounter Plan of Treatment Upcoming Encounters Date Type Department Care Team (Late st Contact Info) Description 03/28/2024 11:00 AM SHUTTLE OPERATOR Office Visit [facility] Oncology and Hematology [facility] [address] [facility] [address] [place] [address] Kris Molina MD [address] [facility] [address] [place] [address] Scheduled Orders Name Type Priority Associated Diagnoses Orde r Schedule COMPREHENSIVE METABOLIC PANEL Lab Routine Chronic anemia Expected: 03/15/2023, Expires: 03/15/2024 CBC WITH DIFFERENTIAL Lab Routine Chronic anemia Expected: 03/15/2023, Expires: 03/15/2024 IRON, TIBC, AND PERCENT SATURATION Lab Routine Chronic anemia Expected: 03/15/2023, Expires: 03/15/2024 FERRITIN Lab Routine Chronic anemia Expected: 03/15/2023, Expires: 03/15/2024 VITAMIN B12 AND FOLATE Lab Routine Chronic anemia Expected: 03/15/2023, Expires: 03/15/2024 documented as of this encounter Visit Diagnoses Diagnosis Chronic anemia- Primary Anemia, unspecified documented in this encounter Care Teams Sanding Machine Buffer Relationship Specialty Start Date End Date Jade Moore ANP [address] [address] PCP - General Nurse Practitioner Adult Health 02/17/21 documented as of this encounter
--- OUTSIDE RECORDS SUMMARY | 2024-03-26 17:06 | XMS_ITS | Encounter Summary ---
Author Organization [facility] ADDISON Pedersen [facility] Address [address] [place] [address] Care Team Providers Care Wood Buffer Name Role Phone Oscar Jade JOLIE Primary Care Provider [phone] Reason for Visit * Reason Comments Follow Up Encounter Details Date Type Department Care Team (Late st Contact Info) Description 09/14/2023 10:15 AM CDT Office Visit [facility] Oncology and Hematology - Darell [address] [facility] [address] [place] [address] Kris Molina MD [address] [facility] [address] [place] [address] Chronic anemia (Primary Dx) Social History Tobacco [...] (205 lb) 09/14/2023 10:05 AM CDT Height - - Body Mass Index 34.11 11/30/2021 11:51 AM CDT documented in this encounter Progress Notes * Kris Molina MD - 09/14/2023 10:34 AM CDT HEMATOLOGY / ONCOLOGY PROGRESS NOTE Patient Identification: Name: Franchesca Tran Age: 53 y.o. Sex: female : 1970 DIAGNOSIS Iron deficiency anemia CURRENT TREATMENT Vitamin B12 1 mg daily TREATMENT HISTORY Venofer received on March 03, 2021 SUBJECTIVE Patient came to the office for follow-up visit. She is feeling much better and more stronger. Denies any bleeding and bruising. Her last menstrual period was in February of last year. Patient has lost 24 pounds weight. No other new complaint. Review of system Constitutional: Patient did not mention fevers, sweats, 24 pound weight loss, denies any tiredness and fatigue HEENT: Patient did not mention sinus congestion, hearing or vision problems Respiratory: Patient did not mention cough, dyspnea, wheeze Cardiovascular: Patient did not mention chest pain, exertional chest pressure/discomfort, nausea, syncope, shortness of breath GI: Patient did not mention constipation, diarrhea, dsyphagia, reflux symptoms, vomiting, melena : Patient did not mention dysuria, frequency, incontinence, urgency Integumentary system: no lymphadenopathy, sweats, flushing Musculoskeletal: Patient not mention: myalgia, arthralgia Neurological: Patient did not mention blurry or disturbed vision, numbness/weakness, dizziness Skin: No lumps, bumps or rashes. 12 point review of system was reviewed Objective: Vital signs in last 24 hours: As per nursing note Exam: General appearance: alert, cooperative, no distress, appears stated age Head: normocephalic, without obvious abnormality, atraumatic Eyes: conjunctivae/corneas clear, EOM's intact Ears: normal external ear canals AU Nose: Nares normal. Septum midline. Mucosa normal. No drainage or sinus tenderness Throat: Lips, mucosa, and tongue normal. Teeth and gums normal Neck: supple, symmetrical, trachea midline. Lungs: clear to auscultation bilaterally Heart: regular rate and rhythm, S1, S2 normal, no murmur, click, rub or gallop Abdomen: soft, non-tender. Bowel sounds normal. No masses, No organomegaly Extremities: extremities normal, atraumatic, no cyanosis or edema Skin: Skin color, texture, turgor normal. No rashes or lesions Lymph nodes: No lymphadenopathy Neuro: No obvious focal deficit exam as above PATH LABS Labs from May 26 showed hemoglobin 13.5. Labs from April 14 showed iron 69 saturation 20% ferritin 83 vitamin B12 409 Labs from November 26 showed vitamin B12 333 iron 93 iron saturation 24% Labs from June 14 showed ferritin 41 iron 60 saturation 17% hemoglobin 13.2 vitamin B12 564 folic acid 4.7 Labs from December 08 showed hemoglobin 13.5 iron 44 iron saturation 12% ferritin 42 vitamin B12 695 folate 8.1 Labs from September 06 showed iron 61 saturation 15 ferritin 31 hemoglobin 12.8 WBC 12.6 @IMAGEIMP@ Assessment: Plan: Patient Active Problem List Diagnosis Date Noted Iron deficiency anemia 02/17/2021 Iron deficiency anemia. This is likely secondary to heavy menstrual bleeding. She has received ironinfusion on March 03, 2021. Labs noted. Hemoglobin stable. Iron saturation is slightly low. I recommended her to take oral irontwice a day. Follow-up with me in 6 months. Vitamin B12 deficiency. B12 level remains stable. Will continue vitamin B12 1 mg daily. He will continue folic acid 3 times a week as well. History of heavy menstrual bleeding status post ablation done in February 2021. She is now postmenopausal with her last menstrual bleeding was last year. TOBACCO COUNSELING She is not a tobacco/nicotine user. 09/14/2023 Kris Molina MD documented in this encounter Plan of Treatment Upcoming Encounters Date Type Department Care Team (Late st Contact Info) Description 03/28/2024 11:00 AM LARGE ANIMAL VETERINARIAN Office Visit [facility] On[facility] and [facility]ology - [place] [address] [facility] [address] [place] [address] Kris Molina MD [address] [facility] [address] [place] [address] Scheduled Orders Name Type Priority Associated Diagnoses Orde r Schedule CBC WITHOUT DIFFERENTIAL Lab Stat Chronic anemia Expected: 03/15/2024, Expires: 09/13/2024 FERRITIN Lab Routine Chronic anemia Expected: 03/15/2024, Expires: 09/13/2024 IRON, TIBC, AND PERCENT SATURATION Lab Routine Chronic anemia Expected: 03/15/2024, Expires: 09/13/2024 VITAMIN B12 AND FOLATE Lab Routine Chronic anemia Expected: 03/15/2024, Expires: 09/13/2024 documented as of this encounter Visit Diagnoses Diagnosis Chronic anemia- Primary Anemia, unspecified documented in this encounter Care Teams Wood Buffer Relationship Specialty Start Date End Date Jade Moore ANP [address] [phone] PCP - General Nurse Practitioner Adult Health 02/17/21 documented as of this encounter
--- OUTSIDE RECORDS SUMMARY | 2024-03-26 17:07 | XMS_ITS | Encounter Summary ---
Author Organization [facility] Address [address] [place] [address] Care Team Providers Care Hide And Skin Processing Worker Name Role Phone Jade Moore JOLIE Primary Care Provider [phone] Encounter Details Date Type Department Care Team (Latest Contact Info) Description 04/27/2006 Inpatient Historical HIS OB PREADMIT Holly Moreira MD NO ADDRESS ON FILE Prev D-[id number]-Zldrxub (Primary Dx) Social History Tobacco Use Types Packs/Day Years Used Date Smoking Tobacco: Never Assessed Sex and Gender Information Value Date Recorded Sex Assigned at Not on file Gender Identity Not on file Sexual Orientation Not on file documented as of this encounter Plan of Treatment Upcoming Encounters Date Type Department Care Team (Late st Contact Info) Description 03/28/2024 11:00 AM LEGAL WRITING PROFESSOR Office Visit [facility] Oncology and Hematology - Darell [address] [facility] [address] [place] [address] Kris Molina MD [address] [facility] [address] [place] [address] documented as of this encounter Procedures Procedure Name Priority Date/Time Associated Diagnosis Comments BLOOD GAS CORD VENOUS Routine 04/27/2006 9:57 AM LEGAL WRITING PROFESSOR BLOOD GAS CORD ARTERIAL Routine 04/27/2006 9:57 AM LEGAL WRITING PROFESSOR CBC WITH DIFFERENTIAL Routine 04/26/2006 9:53 AM LEGAL WRITING PROFESSOR CBC WITH DIFFERENTIAL Routine 04/26/2006 9:53 AM LEGAL WRITING PROFESSOR URINALYSIS W/REFLEX MICROSCOPIC Routine 04/26/2006 9:53 AM LEGAL WRITING PROFESSOR documented in this encounter Results * (ABNORMAL) BLOOD GAS CORD VENOUS (04/27/2006 9:57 AM LEGAL WRITING PROFESSOR) PH CORD VENOUS 7.11(L) 7.23 - 7.46 INTERFACE SYSTEM PCO2 CORD VENOUS 78(H) 28 - 57 mm Hg INTERFACE SYSTEM PO2 CORD VENOUS 14(L) 15 - 42 mm Hg INTERFACE SYSTEM SO2 CORD JACOB 15 14 - 75 % INTERFA CE SYSTEM FO2HB CORD VENOUS 14(L) 94 - 98 % INTERFACE SYSTEM HCO3 CORD VENOUS 24 17 - 25 mmol/L INTERFACE SYSTEM BASE EXCESS CORD VENOUS -7.6(L) -5.8 - 0.7 mmol/L INTERFACE SYSTEM HEMOGLOBIN CORD VENOUS 16.5 14.5 - 22.5 g/dL INTERFACE SYSTEM 04/27/2006 9:57 AM LEGAL WRITING PROFESSOR Holly MENDEZ Performing Organization Address [facility] de Phone Number INTERFACE SYSTEM Refer to clinic/hospital department * (ABNORMAL) BLOOD GAS CORD ARTERIAL (04/27/2006 9:57 AM LEGAL WRITING PROFESSOR) PH CORD ARTERIAL 7.08(L) 7.14 - 7.40 INTERFACE SYSTEM PCO2 CORD ARTERIAL 87(H) 32 - 69 mm Hg INTERFACE SYSTEM PO2 CORD ARTERIAL 10 8 - 33 mm Hg INTERFACE SYSTEM SO2 CORD ARTERIAL 9 5 - 59 % INTERFACE SYSTEM FO2HB CORD ARTERIAL 9(L) 94 - 98 % INTERFACE SYSTEM HCO3 CORD ARTERIAL 25 16 - 27 mmol/L INTERFACE SYSTEM BASE EXCESS CORD ARTERIAL -7.6 -7.6 - 1.3 mmol/L INTERFACE SYSTEM HEMOGLOBIN CORD ARTERIAL 16.2 14.5 - 22.5 g/dL INTERFACE SYSTEM 04/27/2006 9:57 AM LEGAL WRITING PROFESSOR Holly MENDEZ Performing Organization Address City/[facility]/ZIP Co de Phone Number INTERFACE SYSTEM Refer to clinic/hospital department * (ABNORMAL) URINALYSIS (04/26/2006 9:53 AM LEGAL WRITING PROFESSOR) COLOR UA Yellow INTERFACE SYSTEM CLARITY UA Slt. Cloudy(A) Clear INTERFACE SYSTEM SPECIFIC GRAVITY UA 1.023 1.001 - 1.035 INTERFACE SYSTEM PH UA 6.5 5.0 - 8.0 INTERFACE SYSTEM LEUKOCYTE ESTERASE UA 1+(A) Negative INTERFACE SYSTEM NITRITE UA Negative Negative INTERFACE SYSTEM PROTEIN UA 1+(A) Negative INTERFACE SYSTEM GLUCOSE UA Negative Negative INTERFACE SYSTEM KETONES UA Negative Negative INTERFACE SYSTEM UROBILINOGEN UA <1 <=1 mg/dL INTE RFACE SYSTEM BILIRUBIN UA Negative Negative INTERFA CE SYSTEM BLOOD UA Negative Negative INTERFACE SYSTEM WBC UA 7(H) 0 - 5 /HPF INTERFACE SYSTEM RBC UA 1 0 - 4 /HPF INTERFACE SYSTEM BACTERIA UA 1+(A) None Seen /HPF INTERFACE SYSTEM EPITHELIAL CELLS, URINE Many /HPF INTERFACE SYSTEM TRANSITIONAL EPI 0-2 /HPF INT ERFACE SYSTEM 04/26/2006 9:53 AM LEGAL WRITING PROFESSOR Holly Moreira MD URINE ORDE RABLES Performing Organization Address [facility] de Phone Number INTERFACE SYSTEM Refer to clinic/hospital department * (ABNORMAL) CBC WITH DIFFERENTIAL (04/26/2006 9:53 AM LEGAL WRITING PROFESSOR) NEUTROPHILS 77(H) 45 - 70 % INTERFAC E SYSTEM LYMPHOCYTES 15(L) 16 - 45 % INTERFAC E SYSTEM MONOCYTES 7 3 - 13 % INTERFACE SYSTEM EOSINOPHILS 1 0 - 7 % INTERFAC E SYSTEM BASOPHILS 0 0 - 2 % INTERFACE SYSTEM NEUTROPHIL ABSOLUTE 8.17(H) 1.90 - 7.00 K/uL INTERFACE SYSTEM LYMPHOCYTE ABSOLUTE 1.61 0.70 - 4.50 K/uL INTERFACE SYSTEM MONOCYTE ABSOLUTE 0.69 0.10 - 1.30 K/uL INTERFACE SYSTEM EOSINOPHIL ABSOLUTE 0.11 0.00 - 0.70 K/uL INTERFACE SYSTEM BASOPHILS ABSOLUTE 0.02 0.00 - 0.20 K/uL INTERFACE SYSTEM 04/26/2006 9:53 AM LEGAL WRITING PROFESSOR Holly Moreira MD HEMATOLOGY ORDERABLES Performing Organization Address [facility] de Phone Number INTERFACE SYSTEM Refer to clinic/hospital department * (ABNORMAL) CBC WITH DIFFERENTIAL (04/26/2006 9:53 AM LEGAL WRITING PROFESSOR) WBC 10.6(H) 4.0 - 9.8 K/uL INTERFACE SYSTEM RBC 4.51 3.90 - 4.90 M/uL INTERFACE SYSTEM HEMOGLOBIN 12.6 11.8 - 14.8 g/dL INTERFACE SYSTEM HEMATOCRIT 36.9 35.5 - 44.0 % INTERFACE SYSTEM MCV 81.8(L) 82.0 - 99.0 fL INTERFACE SYSTEM MCH 27.9 27.2 - 32.6 pg INTERFACE SYSTEM MCHC 34.1 31.5 - 35.5 % INTERFACE SYSTEM RDW 13.4 11.5 - 14.5 % INTERFACE SYSTEM RDW-STDEV 40.5 37.1 - 48.7 fL INTERFACE SYSTEM PLATELETS 146 140 - 350 K/uL INTERFACE SYSTEM MPV 11.6 9.3 - 12.4 fL INTERFACE SYSTEM 04/26/2006 9:53 AM LEGAL WRITING PROFESSOR Holly Moreira MD HEMATOLOGY ORDERABLES Performing Organization Address [facility] de Phone Number INTERFACE SYSTEM Refer to clinic/hospital department documented in this encounter Visit Diagnoses Diagnosis Previous delivery, delivered, with or without mention of antepartum condition- Primary documented in this encounter Care Teams Hide And Skin Processing Worker Relationship Specialty Start Date End Date Jade Moore ANP [address] [address] PCP - General Nurse Practitioner Adult Health 02/17/21 documented as of this encounter
--- OUTSIDE RECORDS SUMMARY | 2024-03-26 17:07 | XMS_ITS | Encounter Summary ---
Author Organization [facility] Address [address] [facility] Attn: [place] [address] Care Team Providers Care Optical Goods Worker Name Role Phone Jade Moore JOLIE Primary Care Provider [phone] Encounter Details Date Type Department Care Team (Late st Contact Info) Description 06/14/2022 Orders Only Initial Department [address] [facility] ATTN: [place] [address] Provider, Historical Chronic anemia Social History Tobacco Use Types Packs/Day Years Used Date Smoking Tobacco: Never Smokeless Tobacco: Never Sex and Gender Information Value Date Recorded Sex Assigned at Not on file Gender Identity Not on file Sexual Orientation Not on file documented as of this encounter Plan of Treatment Upcoming Encounters Date Type Department Care Team (Late st Contact Info) Description 03/28/2024 11:00 AM ATLASSIAN ADMINISTRATOR Office Visit [facility] Oncology and Hematology - Darell [address] [facility] [address] [place] [address] Kris Molina MD [address] [facility] [address] [place] [address] documented as of this encounter Procedures Procedure Name Priority Date/Time Associated Diagnosis Comments VITAMIN B12 AND FOLATE Routine 06/14/2022 7:26 AM CDT Chronic anemia IRON, TIBC, AND PERCENT SATURATION Routine 06/14/2022 7:26 AM CDT Chronic anemia CBC WITH DIFFERENTIAL Routine 06/14/2022 7:26 AM CDT FERRITIN Routine 06/14/2022 7:26 AM CDT Chronic anemia documented in this encounter Results * (ABNORMAL) VITAMIN B12 AND FOLATE (06/14/2022 7:26 AM CDT) Pathologist [facility] VITAMIN B12 564 200 - 1100 pg/mL [facility] FOLATE, SERUM 4.7(L) ng/mL [facility] Comment: ? Reference Range ? Low: ? <3.4 ? Borderline: ?3.4-5.4 ? Normal: ?>5.4 Test Performed at: [facility] [address] ??[phone] Laxmi Vaz MD Blood 06/14/2022 7:26 AM CDT 06/14/2022 7:26 AM CDT Kris Molina MD CHEMISTRY ORDERABLES [facility] [phone] [facility] [employer] [address] * FERRITIN (06/14/2022 7:26 AM CDT) Pathologist [facility] FERRITIN 41 16 - 232 ng/mL [facility] Comment: Test Performed at: [facility] [address] [place], [place] ??[address] Laxmi Vaz MD Blood 06/14/2022 7:26 AM CDT 06/14/2022 7:26 AM CDT Kris Molina MD CHEMISTRY ORDERABLES Performing Organization Address City/[facility]/ZIP Co de Phone Number [facility] [phone] [facility] [address] [place] [phone] * IRON, TIBC, AND PERCENT SATURATION (06/14/2022 7:26 AM CDT) IRON 60 45 - 160 mcg/dL [facility] TIBC 357 250 - 450 mcg/dL (calc) [facility] IRON % SATURATION 17 16 - 45 % (calc) [facility] Comment: Test Performed at: [facility] ??[phone] Laxmi Vaz MD Blood 06/14/2022 7:26 AM CDT 06/14/2022 7:26 AM CDT Kris Molina MD CHEMISTRY ORDERABLES Performing Organization Address City/[facility]/ZIP Co de Phone Number [facility] [phone] [facility] [employer] [address] [place] [phone] * CBC WITH DIFFERENTIAL (06/14/2022 7:26 AM CDT) WBC 8.7 3.8 - 10.8 Thousand/u L [facility] RBC 4.59 3.80 - 5.10 Million/uL [facility] HEMOGLOBIN 13.2 11.7 - 15.5 g/dL [facility] HEMATOCRIT 39.0 35.0 - 45.0 % [facility] MCV 85.0 80.0 - 100.0 fL [facility] MCH 28.8 27.0 - 33.0 pg [facility] MCHC 33.8 32.0 - 36.0 g/dL [facility] RDW 13.0 11.0 - 15.0 % [facility] PLATELETS 237 140 - 400 Thousand/u L [facility] MPV 11.7 7.5 - 12.5 fL [facility] NEUTROPHIL ABSOLUTE 5,255 1,500 - 7,800 cells/uL [facility] LYMPHOCYTE ABSOLUTE 2,828 850 - 3,900 cells/uL [facility] MONOCYTE ABSOLUTE 487 200 - 950 cells/uL [facility] EOSINOPHIL ABSOLUTE 70 15 - 500 cells/uL [facility] BASOPHILS ABSOLUTE 61 0 - 200 cells/uL [facility] NEUTROPHIL 60.4 % [facility] LYMPHOCYTES 32.5 % [facility] MONOCYTE 5.6 % [facility] EOSINOPHILS 0.8 % [facility] BASOPHILS 0.7 % [facility] Comment: Test Performed at: [address] ??[phone] Laxmi Vaz MD 06/14/2022 7:26 AM CDT 06/14/2022 7:26 AM CDT Kris Molina MD HEMATOLOGY ORDERABLE S [facility] [phone] [address] documented in this encounter Visit Diagnoses Diagnosis Chronic anemia Anemia, unspecified documented in this encounter Care Teams Optical Goods Worker Relationship Specialty Start Date End Date Jade Moore ANP [address] [phone] PCP - General Nurse Practitioner Adult Health 02/17/21 documented as of this encounter
--- OUTSIDE RECORDS SUMMARY | 2024-03-26 17:07 | XMS_ITS | Encounter Summary ---
Author Organization [facility] [email or web address] [facility] Address [address] [place] [address] Care Team Providers Care Diamond Blender Name Role Phone Jade Moore JOLIE Primary Care Provider [phone] Reason for Visit * Reason Onset Date Comments Erroneous encounter-disregard 04/30/2021 Encounter Details Date Type Department Care Team ([facility] Contact Info) Description 04/30/2021 Telephone [facility] Oncology and Hematology [facility] Edwin [address] [place] [address] Kris Molina MD [address] [place] [address] [employer] [address] [place] [address] Erroneous encounter-disregard Social History Tobacco Use Types Packs/Day Years Used Date Smoking Tobacco: Never Smokeless Tobacco: Never Sex and Gender Information Value Date Recorded Sex Assigned at Not on file Gender Identity Not on file Sexual Orientation Not on file documented as of this encounter Plan of Treatment Upcoming Encounters Date Type Department Care Team (Late Contact Info) Description 03/28/2024 11:00 AM WAREHOUSE RECEIVING CLERK Office Visit [facility] Oncology [facility] Hematology [facility] Alisa [address] [place] [address] Kris Molina MD [facility] [employer] [address] [place] [address] documented as of this encounter Visit Diagnoses Not on filedocumented in this encounter Care Teams Diamond Blender Relationship Specialty Start Date End Date Jade Moore ANP [address] [address] PCP - General Nurse Practitioner Adult Health 02/17/21 documented as of this encounter
--- OUTSIDE RECORDS SUMMARY | 2024-03-26 17:07 | XMS_ITS | Encounter Summary ---
Author Organization [facility] Address [address] [facility] Attn: [place] [address] Care Team Providers Care Processes Chemical Design Engineer Name Role Phone Jade Moore JOLIE Primary Care Provider [phone] Encounter Details Date Type Department Care Team (Late st Contact Info) Description 12/08/2022 Orders Only Initial Department [address] [facility] ATTN: [place] [address] Provider, Historical Social History Tobacco Use Types Packs/Day Years Used Date Smoking Tobacco: Never Smokeless Tobacco: Never Sex and Gender Information Value Date Recorded Sex Assigned at Not on file Gender Identity Not on file Sexual Orientation Not on file documented as of this encounter Plan of Treatment Upcoming Encounters Date Type Department Care Team (Late st Contact Info) Description 03/28/2024 11:00 AM SAW FEEDER Office Visit [facility] Oncology and Hematology - Darell 2[address] [facility] [address] [place] [address] Kris Molina MD [address] [facility] [address] [place] [address] documented as of this encounter Procedures Procedure Name Priority Date/Time Associated Diagnosis Comments VITAMIN B12 AND FOLATE Routine 12/08/2022 6:44 AM CDT IRON, TIBC, AND PERCENT SATURATION Routine 12/08/2022 6:44 AM CDT CBC WITH DIFFERENTIAL Routine 12/08/2022 6:44 AM CDT FERRITIN Routine 12/08/2022 6:44 AM CDT documented in this encounter Results * VITAMIN B12 AND FOLATE (12/08/2022 6:44 AM CDT) Pathologist [facility] VITAMIN B12 695 200 - 1100 pg/mL [facility] FOLATE, SERUM 8.1 ng/mL [facility] Comment: ? Reference Range ? Low: ? <3.4 ? Borderline: ?3.4-5.4 ? Normal: ?>5.4 FASTING:YES FASTING: YES Test Performed at: [employer] ??[phone] Laxmi Vaz MD 12/08/2022 6:44 AM CDT 12/08/2022 6:44 AM CDT Kris Molina MD CHEMISTRY ORDERABLES [facility] [phone] [facility] [employer] [address] * FERRITIN (12/08/2022 6:44 AM CDT) Pathologist [facility] FERRITIN 42 16 - 232 ng/mL [employer] Comment: FASTING:YES FASTING: YES Test Performed at: [facility] [employer] ??[address] Laxmi Vaz MD 12/08/2022 6:44 AM CDT 12/08/2022 6:44 AM CDT Kris Molina MD CHEMISTRY ORDERABLES Performing Organization Address [facility] Co de Phone Number [facility] [phone] [address] * (ABNORMAL) IRON, TIBC, AND PERCENT SATURATION (12/08/2022 6:44 AM CDT) IRON 44(L) 45 - 160 mcg/dL [facility] TIBC 372 250 - 450 mcg/dL (calc) [facility] IRON % SATURATION 12(L) 16 - 45 % (calc) [facility] Comment: FASTING:YES FASTING: YES Test Performed at: [address] ??[phone] Laxmi Vaz MD 12/08/2022 6:44 AM CDT 12/08/2022 6:44 AM CDT Kris Molina MD CHEMISTRY ORDERABLES Performing Organization Address City/[facility] Co de Phone Number [facility] [phone] [address] * CBC WITH DIFFERENTIAL (12/08/2022 6:44 AM CDT) WBC 10.3 3.8 - 10.8 Thousand/u L [facility] RBC 4.73 3.80 - 5.10 Million/uL [facility] HEMOGLOBIN 13.5 11.7 - 15.5 g/dL [facility] HEMATOCRIT 40.5 35.0 - 45.0 % [facility] MCV 85.6 80.0 - 100.0 fL [facility] MCH 28.5 27.0 - 33.0 pg [facility] MCHC 33.3 32.0 - 36.0 g/dL [facility] RDW 13.1 11.0 - 15.0 % [facility] PLATELETS 253 140 - 400 Thousand/u L [facility] MPV 11.5 7.5 - 12.5 fL [facility] NEUTROPHIL ABSOLUTE 6,757 1,500 - 7,800 cells/uL [facility] LYMPHOCYTE ABSOLUTE 2,791 850 - 3,900 cells/uL [facility] MONOCYTE ABSOLUTE 628 200 - 950 cells/uL [facility] EOSINOPHIL ABSOLUTE 41 15 - 500 cells/uL [facility] BASOPHILS ABSOLUTE 82 0 - 200 cells/uL [facility] NEUTROPHIL 65.6 % [facility] LYMPHOCYTES 27.1 % [facility] MONOCYTE 6.1 % [facility] EOSINOPHILS 0.4 % [facility] BASOPHILS 0.8 % [facility] Comment: FASTING:YES FASTING: YES Test Performed at: [facility] [address] [place], [place] ??[address] Laxmi Vaz MD 12/08/2022 6:44 AM CDT 12/08/2022 6:44 AM CDT Kris Molina MD HEMATOLOGY ORDERABLE S [facility] [phone] [facility] [employer] [address] documented in this encounter Visit Diagnoses Not on filedocumented in this encounter Care Teams Processes Chemical Design Engineer Relationship Specialty Start Date End Date Jade Moore ANP [address] [address] PCP - General Nurse Practitioner Adult Health 02/17/21 documented as of this encounter
--- OUTSIDE RECORDS SUMMARY | 2024-03-26 17:07 | XMS_ITS | Encounter Summary ---
Author Organization [facility] ADDISON Pedersen [facility] Address [address] [place] [address] Care Team Providers Care Maintenance Helper Name Role Phone Oscar Jade JOLIE Primary Care Provider [phone] Reason for Visit * Reason Comments Follow Up Encounter Details Date Type Department Care Team (Late st Contact Info) Description 06/16/2022 1:15 PM CDT Office Visit [facility] Oncology and Hematology - Darell [address] [facility] [address] [place] [address] Kris Molina MD [address] [facility] [address] [place] [address] Chronic anemia (Primary Dx) Social History Tobacco Use Types Packs/Day Years Used Date Smoking Tobacco: Never Smokeless Tobacco: Never Tobacco Cessation:Counseling Given: Not Answered Sex and Gender Information Value Date Recorded Sex Assigned at Not on file Gender Identity Not on file Sexual Orientation Not on file COVID-19 Exposure Response Date Recorded In the last 10 days, have yo u been in contact with someone who was confirmed or suspected to have Coronavirus/COVID-19? No / Unsure 06/16/2022 12:56 PM CDT documented as of this encounter Last Filed Vital Signs Vital Sign Reading Time Taken Comments Blood Pressure 149/82 06/16/2022 1:12 PM CDT Pulse 91 06/16/2022 1:08 PM CDT Temperature 36.4 ??C (97.6 ??F) 06/16/2022 1:08 PM CD T Respiratory Rate 10 06/16/2022 1:08 PM CDT Oxygen Saturation 99% 06/16/2022 1:08 PM CDT Inhaled Oxygen Concentration - - Weight 105.1 kg (231 lb 12.8 oz) 06/16/2022 1:08 PM CDT Height - - Body Mass Index 38.57 11/30/2021 11:51 AM CDT documented in this encounter Progress Notes * Kris Molina MD - 06/16/2022 1:31 PM CDT HEMATOLOGY / ONCOLOGY PROGRESS NOTE Patient Identification: Name: Franchesca Tran Age: 51 y.o. Sex: female : 1970 DIAGNOSIS Iron deficiency anemia CURRENT TREATMENT Vitamin B12 1 mg daily TREATMENT HISTORY Venofer received on March 03, 2021 SUBJECTIVE Patient came to the office for follow-up visit. She has mild tiredness and fatigue. Denies any bleeding including melena hematochezia. Denies any chest pain or shortness of breath. 1 pound weight gain. No other new complaint. Review of system Constitutional: Patient did not mention fevers, sweats, complain of mild tiredness and fatigue HEENT: Patient did not [...] lumps, bumps or rashes. 12 point review system was reviewed Objective: Vital signs in [...] No lymphadenopathy Neuro: No obvious focal deficit Exam as above PATH LABS Labs from May 26 showed hemoglobin 13.5. Labs from April 14 showed iron 69 saturation 20% ferritin 83 vitamin B12 409 Labs from November 26 showed vitamin B12 333 iron 93 iron saturation 24% Labs from June 14 showed ferritin 41 iron 60 saturation 17% hemoglobin 13.2 vitamin B12 564 folic acid 4.7 @IMAGEIMP@ Assessment: Plan: Patient Active Problem List Diagnosis Date Noted Iron deficiency anemia 02/17/2021 Iron deficiency anemia. This is likely secondary to heavy menstrual bleeding. She has received ironinfusion on March 03, 2021. Clinically she is little bit more symptomatic with tiredness and fatigue. Labs noted that showed normal hemoglobin but slight downtrend on the iron studies. We decided to try slow release iron 3 times a week based on her tolerance. I will repeat labs again in 6 months. Vitamin B12 deficiency. B12 level has improved. She will continue vitamin B12 1 mg daily. We will add folic acid 0.4 mg daily as well. History of heavy menstrual bleeding status post uterine ablation done in February 2021. Stable. TOBACCO COUNSELING She is not a tobacco user. 06/16/2022 Kris Molina MD documented in this encounter Plan of Treatment Upcoming Encounters Date Type Department Care Team (Late st Contact Info) Description 03/28/2024 11:00 AM TESTER ROCKET ENGINE Office Visit [facility] Oncology and Hematology - Darell [address] [facility] [address] [place] [address] Kris Molina MD [address] [facility] [address] [place] [address] documented as of this encounter Visit Diagnoses Diagnosis Chronic anemia- Primary Anemia, unspecified documented in this encounter Care Teams Maintenance Helper Relationship Specialty Start Date End Date Jade Moore ANP [address] [address] PCP - General Nurse Practitioner Adult Health 02/17/21 documented as of this encounter
--- OUTSIDE RECORDS SUMMARY | 2024-03-26 17:07 | XMS_ITS | Encounter Summary ---
Author Organization [facility] ADDISON Pedersen [facility] Address [address] [place] [address] Care Team Providers Care Bridge Teacher Name Role Phone Oscar Jade JOLIE Primary Care Provider Reason for Visit * Reason Comments Establish Care Encounter Details Date Type Department Care Team (Late st Contact Info) Description 02/17/2021 3:00 PM PRISON KEEPER Office Visit [facility] Oncology and Hematology - Darell [address] [facility] [address] [place] [address] Kris Molina MD [address] [facility] [address] [place] [address] Chronic anemia (Primary Dx); Iron deficiency anemia due to chronic blood loss Social History Tobacco Use Types Packs/Day Years Used Date Smoking Tobacco: Never Smokeless Tobacco: Never Sex and Gender Information Value Date Recorded Sex Assigned at Not on file Gender Identity Not on file Sexual Orientation Not on file COVID-19 Exposure Response Date Recorded In the last month, have you been in contact with someone who was confirmed or suspected to have Coronavirus / COVID-19? No / Unsure 02/17/2021 2:30 PM PRISON KEEPER documented as of this encounter Last Filed Vital Signs Vital Sign Reading Time Taken Comments Blood Pressure 141/83 02/17/2021 2:45 PM PRISON KEEPER Pulse 97 02/17/2021 2:45 PM PRISON KEEPER Temperature 37 ??C (98.6 ??F) 02/17/2021 2:45 PM PRISON KEEPER Respiratory Rate 18 02/17/2021 2:45 PM PRISON KEEPER Oxygen Saturation 96% 02/17/2021 2:45 PM PRISON KEEPER Inhaled Oxygen Concentration - - Weight 97.5 kg (215 lb) 02/17/2021 2:45 PM PRISON KEEPER Height 165.1 cm (5' 5 ) 02/17/2021 2:45 PM PRISON KEEPER Body Mass Index 35.78 02/17/2021 2:45 PM PRISON KEEPER documented in this encounter Progress Notes * Kris Molina MD - 02/17/2021 4:04 PM CST Hematology-oncology consult Note Requesting Physician Jade Moore ANP Primary Care Physician Jade Moore ANP Problem list There is no problem list on file for this patient. Previous TREATMENT ? Measurable Disease ? Reason for Visit Franchesca Tran is a 50 y.o. female who was referred for consultation for iron deficiency anemia. History of present illness This is a pleasant 50-year-old female with history of gastroesophageal flux disease. She has been dealing with heavy menstrual bleeding that last for about 9 days with first 4 to 5 days being heavy. She has been complaining of tiredness and fatigue. She had D&C done just 3 days ago. She is planning to have uterine ablation on March 15. She denies being a vegetarian. Her weight and appetite stable. No diarrhea no constipation. No melena hematochezia. She is not taking oral iron supplement at this time. No other new complaints. Past Medical History No past medical history on file. Gastroesophageal reflux disease. Surgical History Past Surgical History: Procedure Laterality Date ??? HX BREAST LUMPECTOMY FOR CANCER ??? HX SECTION ??? HX CHOLECYSTECTOMY Medications Current Outpatient Medications Medication Sig Dispense Refill ??? omeprazole (PriLOSEC) 40 mg Capsule, Delayed Release(E.C.) omeprazole 40 mg capsule,delayed release TAKE 1 CAPSULE BY MOUTH EVERY DAY No current facility-administered medications for this visit. Allergies No Known Allergies Immunizations: There is no immunization history on file for this patient. Family History No family history on file. Social History Social History Tobacco Use ??? Smoking status: Never Smoker ??? Smokeless tobacco: Never Used Substance Use Topics ??? Alcohol use: Not on file Review of Systems Constitutional: No fever; no night sweats; no anorexia; no weight loss; complain of tiredness and fatigue NEENT: No headache; no change in vision; no change in hearing; no sore throat; no dysphagia Respiratory: No shortness of breath; no pleuritic chest pain; no cough; no hemoptysis Cardiac: No cardiac-like chest pain; no palpitations; no orthopnea; no PND; no LOYD Breasts: No tenderness; no masses GI: No abdominal pain; no nausea; no vomiting; no diarrhea; no hematochezia; no melena : No dysuria; no frequency; no hesitancy; no hematuria TRUER PINION AND WHEEL: Complain of heavy menstrual bleeding Musculosketetal: no bone pain; no arthralgia; no joint swelling; no myalgia; Skin: no pruritis; no rash; no petechiae; no ecchymoses Endocrine: no polydipsia; no polyuria; no unusual weight gain Neuro: No headache; no change in vision; no sensory changes; no muscle weakness; no confusion; no seizures Psych: no anxiety; no depression; Physical Exam Vitals: As per nursing note Constitutional: Well developed, well nourished, no acute distress, non-toxic appearance Teeth and gum. No signs of infection or swelling. Eyes: PERRL, conjunctiva normal HEENT: Atraumatic, external ears normal, nose normal, oropharynx moist, no pharyngeal exudates. no sinus tenderness Neck- normal range of motion, no tenderness, supple Respiratory: No respiratory distress, normal breath sounds, no rales, no wheezing Cardiovascular: Normal rate, normal rhythm, no murmurs, no gallops, no rubs GI: Soft, nondistended, normal bowel sounds, nontender, no splenomegaly, no hepatomegaly, no mass, no rebound, no guarding : No costovertebral angle tenderness Musculoskeletal: No edema, no tenderness, no deformities. Back- no tenderness Integument: Well hydrated, no rash, Digits and nails inspection normal Lymphatic: No lymphadenopathy noted Neurologic: Alert & oriented x 3, CN 2-12 normal, normal motor function, normal sensory function, no focal deficits noted Psychiatric: Speech and behavior appropriate ? labs No results found for this or any previous visit (from the past 24 hour(s)). Labs from January 21, 2021 showed ferritin 8 hemoglobin 10.8 MCV 77.6 iron 53 iron saturation 11%. Pathology ? Imaging & Other Studies Performance Status? Assessment / Plan: ? Microcytic anemia secondary to iron deficiency. This is a pleasant 50-year-old female with history of gastroesophageal flux disease and heavy menstrual bleeding that last for about 9 days. First 4 to5 days of her bleeding is generally quite heavy. She has been complaining of tiredness and fatigue.She denies any melena hematochezia. She denies being a vegetarian. Her weight and appetite stable. I have reviewed the labs that showed significant iron deficiency. Patient is quite symptomatic. At this time I will start her on iron infusion. I also instructed her to take oral iron once a day. She will also take vitamin C 500 mg daily. I plan to see her back in 2 months with repeat labs. Heavy menstrual bleeding. She has seen the director social service and plan to have uterine ablation on March 15. GERD. She can continue Prilosec. Thank you very much for allowing me to participate in Franchesca Tran's evaluation and management. Please feel free to contact if I can be of any further assistance in your patient???s care requiring hematology or oncology evaluation. Sincerely, ? ? Kris Molina M.D. cell TOBACCO COUNSELING She is not a tobacco user. Kris Molina MD ,02/17/2021 4:04 PM ? Total time spent 80 minutes, two third of the total time spent counseling patient [id number]. CC:?Jade Moore, JOLIE ON KEEPER documented in this encounter Plan of Treatment Upcoming Encounters Date Type Department Care Team (Late st Contact Info) Description 03/28/2024 11:00 AM PRISON KEEPER Office Visit [facility] Oncology and Hematology - Darell [address] [facility] [address] [place] [address] Kris Molina MD [address] [facility] [address] [place] [address] Scheduled Orders Name Type Priority Associated Diagnoses Orde r Schedule CBC WITHOUT DIFFERENTIAL Lab Stat Chronic anemia Expected: 04/14/2021, Expires: 02/17/2022 documented as of this encounter Procedures Procedure Name Priority Date/Time Associated Diagnosis Comments FERRITIN Routine 04/13/2021 7:17 AM PRISON KEEPER Chronic anemia documented in this encounter Results * IRON, TIBC, AND PERCENT SATURATION (05/24/2021 6:30 AM PRISON KEEPER) IRON 58 40 - 190 mcg/dL [facility] TIBC 358 250 - 450 mcg/dL (calc) [facility] IRON % SATURATION 16 16 - 45 % (calc) [facility] Comment: Test Performed at: [facility] [employer] ??[phone] Ismael Savage D.O., MPH Blood 05/24/2021 6:30 AM PRISON KEEPER 05/24/2021 6:30 AM PRISON KEEPER Kris Molina MD CHEMISTRY ORDERABLES Performing Organization Address [facility] Co de Phone Number [facility] [address] [place] [address] * FERRITIN (05/24/2021 6:30 AM PRISON KEEPER) FERRITIN 60 16 - 232 ng/mL [facility] Comment: Test Performed at: [facility] [employer] ??[phone] Ismael Savage D.O., MPH Blood 05/24/2021 6:30 AM PRISON KEEPER 05/24/2021 6:30 AM PRISON KEEPER Kris Molina MD CHEMISTRY ORDERABLES Performing Organization Address [facility] Co de Phone Number [facility] [address] [place] [address] * VITAMIN B12 LEVEL (04/13/2021 7:17 AM PRISON KEEPER) VITAMIN B12 409 200 - 1100 pg/mL [facility] Comment: Test Performed at: [facility] [employer] ??[phone] Ismael Savage D.O., MPH Blood 04/13/2021 7:17 AM PRISON KEEPER 04/13/2021 7:18 AM PRISON KEEPER Kris Molina MD CHEMISTRY ORDERABLES Performing Organization Address City/[facility]/ZIP Co de Phone Number [facility] [address] [place] [address] * IRON, TIBC, AND PERCENT SATURATION (04/13/2021 7:17 AM PRISON KEEPER) IRON 69 40 - 190 mcg/dL [facility] TIBC 348 250 - 450 mcg/dL (calc) [facility] IRON % SATURATION 20 16 - 45 % (calc) [facility] Comment: Test Performed at: [facility] [address] [place], [place] ??[phone] Ismael Savage D.O., MPH Blood 04/13/2021 7:17 AM PRISON KEEPER 04/13/2021 7:18 AM PRISON KEEPER Kris Molina MD CHEMISTRY ORDERABLES Performing Organization Address [facility] Co de Phone Number [facility] [address] [place] [address] * FERRITIN (04/13/2021 7:17 AM PRISON KEEPER) FERRITIN 83 16 - 232 ng/mL [facility] Comment: Test Performed at: [facility] [address] [place], [place] ??[phone] Ismael Savage D.O., MPH Blood 04/13/2021 7:17 AM PRISON KEEPER 04/13/2021 7:18 AM PRISON KEEPER Kris Molina MD CHEMISTRY ORDERABLES Performing Organization Address City/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
--- OUTSIDE RECORDS SUMMARY | 2024-03-26 17:07 | XMS_ITS | Encounter Summary ---
Author Organization [facility] Address [address] [facility] Attn: [place] [address] Care Team Providers Care Cage Unloader Name Role Phone Jade Moore JOLIE Primary Care Provider [phone] Encounter Details Date Type Department Care Team (Late st Contact Info) Description 04/15/2021 Orders Only Initial Department [address] [facility] ATTN: [place] [address] Provider, Historical Social History Tobacco Use Types Packs/Day Years Used Date Smoking Tobacco: Never Smokeless Tobacco: Never Sex and Gender Information Value Date Recorded Sex Assigned at Not on file Gender Identity Not on file Sexual Orientation Not on file documented as of this encounter Plan of Treatment Upcoming Encounters Date Type Department Care Team (Late st Contact Info) Description 03/28/2024 11:00 AM HABILITATIVE INTERVENTIONIST Office Visit [facility] Oncology and Hematology - Darell [address] [facility] [address] [place] [address] Kris Molina MD [address] [facility] [address] [place] [address] documented as of this encounter Procedures Procedure Name Priority Date/Time Associated Diagnosis Comments CBC WITHOUT DIFFERENTIAL Routine 04/15/2021 7:19 AM HABILITATIVE INTERVENTIONIST documented in this encounter Results * (ABNORMAL) CBC WITHOUT DIFFERENTIAL (04/15/2021 7:19 AM HABILITATIVE INTERVENTIONIST) WBC 8.1 3.8 - 10.8 Thousand/u L [facility] RBC 4.53 3.80 - 5.10 Million/uL [facility] HEMOGLOBIN 12.2 11.7 - 15.5 g/dL [facility] HEMATOCRIT 37.3 35.0 - 45.0 % [facility] MCV 82.3 80.0 - 100.0 fL [facility] MCH 26.9(L) 27.0 - 33.0 pg [facility] MCHC 32.7 32.0 - 36.0 g/dL [facility] RDW 18.0(H) 11.0 - 15.0 % [facility] PLATELETS 228 140 - 400 Thousand/u L [facility] MPV 11.3 7.5 - 12.5 fL [facility] Comment: Test Performed at: [facility] ??[phone] Ismael Savage D.O., MPH 04/15/2021 7:19 AM HABILITATIVE INTERVENTIONIST 04/15/2021 7:20 AM HABILITATIVE INTERVENTIONIST Kris Molina MD HEMATOLOGY ORDERABLE S Performing Organization Address City/State/[facility] Co de Phone Number [facility] [address] [place] [address] documented in this encounter Visit Diagnoses Not on filedocumented in this encounter Care Teams Cage Unloader Relationship Specialty Start Date End Date Jade Moore ANP [address] [address] PCP - General Nurse Practitioner Adult Health 02/17/21 documented as of this encounter
--- OUTSIDE RECORDS SUMMARY | 2024-03-26 17:07 | XMS_ITS | Encounter Summary ---
Author Organization [facility] JOJORedDrummer Slava [facility] Address [address] [place] [address] Care Team Providers Care Passenger Service Agent Name Role Phone Jade Moore Primary Care Provider [phone] Encounter Details Date Type Department Care Team ([facility] Contact Info) Description 05/31/2021 Orders Only [facility] Oncology and Hematology - Darell [address] [place] [address] Cherie Jo Chronic anemia Social History Tobacco Use Types [...] have Coronavirus / COVID-19? No / Unsure 05/26/2021 9:49 AM PRESTRESSED CONCRETE LABORER documented as of this encounter Plan of Treatment Upcoming Encounters Date Type Department Care Team (Late Contact Info) Description 03/28/2024 11:00 AM PRESTRESSED CONCRETE LABORER Office Visit [facility] Oncology and Hematology - Adrell [address] [place] [address] Kris Molina MD [address] [facility] [address] [place] [address] documented as of this encounter Visit Diagnoses Diagnosis Chronic anemia Anemia, unspecified documented in this encounter Care Teams Passenger Service Agent Relationship Specialty Start Date End Date Jade Moore ANP [address] [id number] PCP - General Nurse Practitioner Adult Health 02/17/21 documented as of this encounter
--- OUTSIDE RECORDS SUMMARY | 2024-03-26 17:07 | XMS_ITS | Encounter Summary ---
Author Organization [facility] [employer]HELLE[employer] [facility] Address [address] [place] [address] Care Team Providers Care Multi Township Assessor Name Role Phone Jade Moore JOLIE Primary Care Provider [phone] Encounter Details Date Type Department Care Team (Late Contact Info) Description 02/18/2021 Orders Only [facility] Oncology and Hematology [facility] [address] [place] [address] Kris Molina MD [facility] [address] [place] [address] Chronic anemia Social History Tobacco Use Types [...] COVID-19? No / Unsure 02/17/2021 2:30 PM LOCK EXPERT documented as of this encounter Plan of Treatment Upcoming Encounters Date Type Department Care Team (Late Contact Info) Description 03/28/2024 11:00 AM LOCK EXPERT Office Visit [facility] Oncology and Hematology - [place]arell [address] [place] [address] Kris Molina MD [address] [place] [address] [phone] (work) documented as of this encounter Procedures Procedure Name Priority Date/Time Associated Diagnosis Comments IRON, TIBC, AND PERCENT SATURATION Routine 05/24/2021 6:30 AM LOCK EXPERT Chronic anemia FERRITIN Routine 05/24/2021 6:30 AM LOCK EXPERT Chronic anemia IRON, TIBC, AND PERCENT SATURATION Routine 04/13/2021 7:17 AM LOCK EXPERT Chronic anemia VITAMIN B12 LEVEL Routine 04/13/2021 7:1 7 AM LOCK EXPERT Chronic anemia documented in this encounter Results * FERRITIN (05/24/2021 6:30 AM LOCK EXPERT) FERRITIN 60 16 - 232 ng/mL [facility] Comment: Test Performed at: [facility] ??[phone] Ismael Savage D.O., MPH Blood 05/24/2021 6:30 AM LOCK EXPERT 05/24/2021 6:30 AM LOCK EXPERT Kris Molina MD CHEMISTRY ORDERABLES [facility] [address] [place] [address] * IRON, TIBC, AND PERCENT SATURATION (05/24/2021 6:30 AM LOCK EXPERT) IRON 58 40 - 190 mcg/dL [facility] TIBC 358 250 - 450 mcg/dL (calc) [facility] IRON % SATURATION 16 16 - 45 % (calc) [facility] Comment: Test Performed at: [facility] ??[phone] Ismael Savage D.O., MPH Blood 05/24/2021 6:30 AM LOCK EXPERT 05/24/2021 6:30 AM LOCK EXPERT Kris Molina MD CHEMISTRY ORDERABLES Performing Organization Address [facility] Co de Phone Number [facility] [address] [place] [address] * IRON, TIBC, AND PERCENT SATURATION (04/13/2021 7:17 AM LOCK EXPERT) IRON 69 40 - 190 mcg/dL [facility] TIBC 348 250 - 450 mcg/dL (calc) [facility] IRON % SATURATION 20 16 - 45 % (calc) [facility] Comment: Test Performed at: [facility] [place] [address] [place] [address] ??[phone] Ismael Savage D.O., MPH Blood 04/13/2021 7:17 AM LOCK EXPERT 04/13/2021 7:18 AM LOCK EXPERT Kris Molina MD CHEMISTRY ORDERABLES Performing Organization Address [facility] de Phone Number [facility] [address] [place] [address] * VITAMIN B12 LEVEL (04/13/2021 7:17 AM LOCK EXPERT) VITAMIN B12 409 200 - 1100 pg/mL [facility] Comment: Test Performed at: [facility] [address] [place] [address] ??[phone] Ismael Savage D.O., MPH Blood 04/13/2021 7:17 AM LOCK EXPERT 04/13/2021 7:18 AM LOCK EXPERT Kris Molina MD CHEMISTRY ORDERABLES Performing Organization Address [facility] Co de Phone Number [facility] [address] [place] [address] documented in this encounter Visit Diagnoses Diagnosis Chronic anemia Anemia, unspecified documented in this encounter Care Teams Multi Township Assessor Relationship Specialty Start Date End Date Jade Moore ANP [address] [address] PCP - General Nurse Practitioner Adult Health 02/17/21 documented as of this encounter
--- OUTSIDE RECORDS SUMMARY | 2024-03-26 17:07 | XMS_ITS | Encounter Summary ---
Author Organization [facility] Address [address] [facility] Attn: Epic Prelude ADT CHRISTOS MESSER [address] Care Team Providers Care Credit Checker Name Role Phone Jade Moore Primary Care Provider [phone] Encounter Details Date Type Department Care Team (Latest Contact Info) Description 06/16/2022 Travel Social History Tobacco Use Types Packs/Day Years [...] PM CDT documented as of this encounter Plan of Treatment Upcoming Encounters Date Type Department Care Team (Late st Contact Info) Description 03/28/2024 11:00 AM PIGMENT MIXER Office Visit [facility] Oncology and Hematology - [place] [address] [facility] [address] [place] [address] Kris Molina MD [address] [facility] [address] [place] [address] documented as of this encounter Visit Diagnoses Not on filedocumented in this encounter Care Teams Credit Checker Relationship Specialty Start Date End Date Jade Moore ANP [address] [facility] [address] [place] [address] PCP - General Nurse Practitioner Adult Health 02/17/21 documented as of this encounter
--- OUTSIDE RECORDS SUMMARY | 2024-03-26 17:07 | XMS_ITS | Encounter Summary ---
Author Organization [facility] Address [address] [place] [address] Care Team Providers Care Passport Support Associate Name Role Phone Jade Moore Primary Care Provider Encounter Details Date Type Department Care Team (Latest Contact Info) Description 08/23/2001 Inpatient Historical HIS PATIENT IN A BED Holly Moreira MD NO ADDRESS ON FILE PREV DELIVERY NOS-DELIVER (Primary Dx) Social History Tobacco Use Types Packs/Day Years Used Date Smoking Tobacco: Never Assessed Sex and Gender Information Value Date Recorded Sex Assigned at Not on file Gender Identity Not on file Sexual Orientation Not on file documented as of this encounter Plan of Treatment Upcoming Encounters Date Type Department Care Team (Late st Contact Info) Description 03/28/2024 11:00 AM SPORTS BOOK WRITER Office Visit [facility] Oncology and Hematology - [place] [address] [facility] [address] [place] [address] Kris Molina MD [address] [facility] [address] [place] [address] documented as of this encounter Visit Diagnoses Diagnosis Previous delivery, delivered, with or without mention of antepartum condition- Primary documented in this encounter Care Teams Passport Support Associate Relationship Specialty Start Date End Date Jade Moore ANP [address] [address] PCP - General Nurse Practitioner Adult Health 02/17/21 documented as of this encounter
--- OUTSIDE RECORDS SUMMARY | 2024-03-26 17:07 | XMS_ITS | Encounter Summary ---
Author Organization [facility] [employer] [facility] Address [address] [place] [address] Care Team Providers Care Perinatal Social Worker Name Role Phone Oscar Jade JOLIE Primary Care Provider [phone] Reason for Visit * Reason Comments Follow Up 2 month f/u with lab s Encounter Details Date Type Department Care Team (Late st Contact Info) Description 05/26/2021 10:00 AM PIGS FEET CLEANER Office Visit [facility] Oncology and Hematology - [place] [address] [place] [address] [facility] [address] [place] [address] Kris Molina MD [address] [facility] [address] [place] [address] Chronic anemia (Primary Dx) Social [...] COVID-19? No / Unsure 05/26/2021 9:49 AM PIGS FEET CLEANER documented as of this encounter Last Filed Vital Signs Vital Sign Reading Time Taken Comments Blood Pressure 139/84 05/26/2021 10:09 AM PIGS FEET CLEANER Pulse 80 05/26/2021 10:09 AM PIGS FEET CLEANER Temperature 36.6 ??C (97.9 ??F) 05/26/2021 1 0:09 AM PIGS FEET CLEANER Respiratory Rate - - Oxygen Saturation 98% 05/26/2021 10: 09 AM PIGS FEET CLEANER Inhaled Oxygen Concentration - - Weight 102.5 kg (225 lb 14.4 oz) 2021 10:09 AM PIGS FEET CLEANER Height 165.1 cm (5' 5 ) 05/26/2021 10:0 9 AM PIGS FEET CLEANER Body Mass Index 37.59 05/26/2021 10:09 AM PIGS FEET CLEANER documented in this encounter Progress Notes * Kris Molina MD - 05/26/2021 12:17 PM CST HEMATOLOGY / ONCOLOGY PROGRESS NOTE Patient Identification: Name: Franchesca Tran Age: 50 y.o. Sex: female : 1970 DIAGNOSIS Iron deficiency anemia CURRENT TREATMENT Iron once a day with vitamin C 5 mg daily TREATMENT HISTORY Venofer received on March 03, 2021 SUBJECTIVE Patient came to the office for follow-up visit after iron infusion. She is feeling much better and more stronger. Denies any chest pain or shortness of breath. Denies any other new complaints. Review of system Constitutional: Patient did not mention fevers, sweats, improvement in tiredness and fatigue HEENT: Patient did not [...] dizziness Skin: No lumps, bumps or rashes. Objective: Vital signs in last 24 hours: [...] No lymphadenopathy Neuro: No obvious focal deficit PATH LABS Labs from May 26 showed hemoglobin 13.5. Labs from April 14 showed iron 69 saturation 20% ferritin 83 vitamin B12 409 @IMAGEIMP@ Assessment: Plan: Patient Active Problem List Diagnosis Date Noted ??? Iron deficiency anemia 02/17/2021 Iron deficiency anemia. This is likely secondary to heavy menstrual bleeding. She has received ironinfusion on March 03, 2021. Labs showed significant improvement in hemoglobin and iron level. She will continue oral iron once a day with vitamin C daily. I will see her back in 6 months with repeat labs. History of heavy menstrual bleeding status post uterine ablation done on February 2021. GERD. Continue Prilosec. ? TOBACCO COUNSELING She is not a tobacco user. 05/26/2021 Kris Molina MD FEET CLEANER documented in this encounter Plan of Treatment Upcoming Encounters Date Type Department Care Team (Late st Contact Info) Description 03/28/2024 11:00 AM PIGS FEET CLEANER Office Visit [facility] Oncology and Hematology - [place] [address] [facility] [address] [place] [address] Kris Molina MD [address] [facility] [address] [place] [address] Scheduled Orders Name Type Priority Associated Diagnoses Orde r Schedule CBC WITHOUT DIFFERENTIAL Lab Stat Chronic anemia Expected: 05/26/2021, Expires: 05/26/2022 documented as of this encounter Procedures Procedure Name Priority Date/Time Associated Diagnosis Comments VITAMIN B12 AND FOLATE Routine 11/26/2021 9:52 AM CDT Chronic anemia IRON, TIBC, AND PERCENT SATURATION Routine 11/26/2021 9:52 AM CDT Chronic anemia FERRITIN Routine 11/26/2021 9:52 AM CDT Chronic anemia documented in this encounter Results * VITAMIN B12 AND FOLATE (11/26/2021 9:52 AM CDT) VITAMIN B12 333 200 - 1100 pg/mL [facility] Comment: Please Note: Although the reference range for vitamin B12 is 200-1100 pg/mL, it has been reported that between 5 and 10% of patients with values between 200 and 400 pg/mL may experience neuropsychiatric and hematologic abnormalities due to occult B12 deficiency; less than 1% of patients with values above 400 pg/mL will have symptoms. FOLATE, SERUM 8.7 ng/mL [facility] Comment: ? Reference Range ? Low: ? <3.4 ? Borderline: ?3.4-5.4 ? Normal: ?>5.4 VARIFIED ALL INFO FASTING:NO FASTING: NO Test Performed at: [facility] [id number] [place] [address] ??[phone] Ismael Savage D.O., MPH Blood 11/26/2021 9:52 AM CDT 11/26/2021 9:52 AM CDT Kris Molina MD CHEMISTRY ORDERABLES [facility] [phone] [facility] [address] [place] [address] * IRON, TIBC, AND PERCENT SATURATION (11/26/2021 9:52 AM CDT) IRON 93 45 - 160 mcg/dL [facility] TIBC 380 250 - 450 mcg/dL (calc) [facility] IRON % SATURATION 24 16 - 45 % (calc) [facility] Comment: VARIFIED ALL INFO FASTING:NO FASTING: NO Test Performed at: [facility] [address] [place] [address] ??[phone] Ismael Savage D.O., MPH Blood 11/26/2021 9:52 AM CDT 11/26/2021 9:52 AM CDT Kris Molina MD CHEMISTRY ORDERABLES Performing Organization Address [facility] Co de Phone Number [facility] [phone] [facility] [address] [address] * FERRITIN (11/26/2021 9:52 AM CDT) FERRITIN 51 16 - 232 ng/mL [facility] Comment: VARIFIED ALL INFO FASTING:NO FASTING: NO Test Performed at: [facility] ??[phone] Ismael Savage D.O., MPH Blood 11/26/2021 9:52 AM CDT 11/26/2021 9:52 AM CDT Kris Molina MD CHEMISTRY ORDERABLES Performing Organization Address City/[facility]/ZIP Co de Phone Number [facility] [phone] [facility] [address] [address] documented in this encounter Visit Diagnoses Diagnosis Chronic anemia- Primary Anemia, unspecified documented in this encounter Care Teams Perinatal Social Worker Relationship Specialty Start Date End Date Jade Moore ANP [address] [address] PCP - General Nurse Practitioner Adult Health 02/17/21 documented as of this encounter
--- OUTSIDE RECORDS SUMMARY | 2024-03-26 17:07 | XMS_ITS | Encounter Summary ---
Author Organization [facility] Address [address] [facility] Attn: Epic Prelude ADT [place]RIST[place] MESSER [address] Care Team Providers Care Auxiliary Powerplant Operator Name Role Phone Jade Moore Primary Care Provider [phone] Encounter Details Date Type Department Care Team (Latest Contact Info) Description 11/30/2021 Travel Social History Tobacco Use Types Packs/Day [...] suspected to have Coronavirus/COVID-19? No / Unsure 11/30/2021 11:19 AM CDT documented as of this encounter Plan of Treatment Upcoming Encounters Date Type Department Care Team (Late st Contact Info) Description 03/28/2024 11:00 AM VACUUM SPINDLE SANDER Office Visit [facility] Oncology and Hematology - [place] [address] [facility] [address] [place] [address] Kris Molina MD [address] [facility] [address] [place] [address] documented as of this encounter Visit Diagnoses Not on filedocumented in this encounter Care Teams Auxiliary Powerplant Operator Relationship Specialty Start Date End Date Jade Moore ANP [address] [facility] [address] [place] [address] PCP - General Nurse Practitioner Adult Health 02/17/21 documented as of this encounter
--- OUTSIDE RECORDS SUMMARY | 2024-03-26 17:07 | XMS_ITS | Encounter Summary ---
Author Organization [facility] Address [address] [facility] Attn: Epic Prelude ADT CHRISTOS MESSER [address] Care Team Providers Care Marketing Trainee Name Role Phone Jade Moore Primary Care Provider [phone] Encounter Details Date Type Department Care Team (Latest Contact Info) Description 05/26/2021 Travel Social History Tobacco Use Types Packs/Day [...] COVID-19? No / Unsure 05/26/2021 9:49 AM WEBSPHERE ADMINISTRATOR documented as of this encounter Plan of Treatment Upcoming Encounters Date Type Department Care Team (Late st Contact Info) Description 03/28/2024 11:00 AM WEBSPHERE ADMINISTRATOR Office Visit [facility] Oncology and Hematology - [place]arell [address] [facility] [address] [place] [address] Kris Molina MD [address] [facility] [address] [place] [address] documented as of this encounter Visit Diagnoses Not on filedocumented in this encounter Care Teams Marketing Trainee Relationship Specialty Start Date End Date Jade Moore ANP [address] [facility] [address] [place] [address] PCP - General Nurse Practitioner Adult Health 02/17/21 documented as of this encounter
--- OUTSIDE RECORDS SUMMARY | 2024-03-26 17:07 | XMS_ITS | Encounter Summary ---
Author Organization [facility] Address [address] [facility] Attn: Epic Prelude ADT CHRISTOS MESSER [address] Care Team Providers Care Wireless Construction Manager Name Role Phone Jade Moore Primary Care Provider [phone] Encounter Details Date Type Department Care Team (Latest Contact Info) Description 02/17/2021 Travel Social History Tobacco Use Types Packs/Day [...] COVID-19? No / Unsure 02/17/2021 2:30 PM MEDICAL AND HEALTH SERVICES MANAGER documented as of this encounter Plan of Treatment Upcoming Encounters Date Type Department Care Team (Late st Contact Info) Description 03/28/2024 11:00 AM MEDICAL AND HEALTH SERVICES MANAGER Office Visit [facility] Oncology and Hematology - Darell [address] [facility] [address] [place] [address] Kris Molina MD [address] [facility] [address] [place] [address] documented as of this encounter Visit Diagnoses Not on filedocumented in this encounter Care Teams Wireless Construction Manager Relationship Specialty Start Date End Date Jade Moore ANP [address] [facility] [address] [place] [address] PCP - General Nurse Practitioner Adult Health 02/17/21 documented as of this encounter
--- OUTSIDE RECORDS SUMMARY | 2024-03-26 17:07 | XMS_ITS | Encounter Summary ---
Author Organization [facility] ADDISON Pedersen [facility] Address [address] [place] [address] Care Team Providers Care Public Relations Sales Marketing Name Role Phone Oscar Jade DAVE Primary Care Provider [phone] Reason for Visit * Reason Comments Follow Up Encounter Details Date Type Department Care Team (Late st Contact Info) Description 11/30/2021 11:30 AM CDT Office Visit [facility] Oncology and Hematology - [place] [address] [facility] [address] [place] [address] Kris Molina MD [address] [facility] [address] [place] [address] Chronic anemia (Primary Dx) Social [...] AM CDT documented as of this encounter Last Filed Vital Signs Vital Sign Reading Time Taken Comments Blood Pressure 129/76 11/30/2021 11:51 AM CDT Pulse 71 11/30/2021 11:51 AM CDT Temperature 36.2 ??C (97.2 ??F) 11/30/2021 1 1:51 AM CDT Respiratory Rate - - Oxygen Saturation 99% 11/30/2021 11: 51 AM CDT Inhaled Oxygen Concentration - - Weight 104.4 kg (230 lb 3.2 oz) 022 11:51 AM CDT Height 165.1 cm (5' 5 ) 11/30/2021 11:5 1 AM CDT Body Mass Index 38.31 11/30/2021 11:51 AM CDT documented in this encounter Progress Notes * Kris Molina MD - 11/30/2021 1:00 PM CDT HEMATOLOGY / ONCOLOGY PROGRESS NOTE Patient Identification: Name: Franchesca Tran Age: 51 y.o. Sex: female : 1970 DIAGNOSIS Iron deficiency anemia CURRENT TREATMENT Vitamin B12 1 mg daily TREATMENT HISTORY Venofer received on March 03, 2021 SUBJECTIVE Patient came to the office for follow-up visit. She denies any chest pain shortness of breath. Denies any bleeding and bruising. Denies any excessive tiredness and fatigue. No other new complaint. Review of system Constitutional: Patient did not mention fevers, sweats, denies any tiredness and fatigue HEENT: Patient [...] rashes. 12 point review system was reviewed and as above Objective: Vital signs in last 24 hours: [...] No lymphadenopathy Neuro: No obvious focal deficit Examination as above PATH LABS Labs from May 26 showed hemoglobin 13.5. Labs from April 14 showed iron 69 saturation 20% ferritin 83 vitamin B12 409 Labs from November 26 showed vitamin B12 333 iron 93 iron saturation 24% @IMAGEIMP@ Assessment: Plan: Patient Active Problem List Diagnosis Date Noted Iron deficiency anemia 02/17/2021 Iron deficiency anemia. This is likely secondary to heavy menstrual bleeding. She has received ironinfusion on March 03, 2021. Labs noted that showed normal iron level. We will perform CBC today. She is not taking any iron andvitamin C supplement any further since her iron levels are normal. Follow-up in 6 months. Vitamin B12 urgency. She will start vitamin B12 1 mg daily. History of heavy menstrual bleeding status post uterine ablation in February 2021. Stable. GERD. Continue Prilosec. TOBACCO COUNSELING She is not a tobacco user. 11/30/2021 Kris Molina MD documented in this encounter Plan of Treatment Upcoming Encounters Date Type Department Care Team (Late st Contact Info) Description 03/28/2024 11:00 AM DELIVERER FOOD Office Visit [facility] Oncology and Hematology - [place] [address] [facility] [address] [place] [address] Kris Molina MD [address] [facility] [address] [place] [address] documented as of this encounter Procedures Procedure Name Priority Date/Time Associated Diagnosis Comments CBC WITH DIFFERENTIAL Routine 12/04/2021 12:00 AM CDT documented in this encounter Results * (ABNORMAL) VITAMIN B12 AND FOLATE (06/14/2022 7:26 AM CDT) VITAMIN B12 564 200 - 1100 pg/mL [facility] FOLATE, SERUM 4.7(L) ng/mL [facility] Comment: ? Reference Range ? Low: ? <3.4 ? Borderline: ?3.4-5.4 ? Normal: ?>5.4 Test Performed at: [address] ??[phone] Laxmi Vaz MD Blood 06/14/2022 7:26 AM CDT 06/14/2022 7:26 AM CDT Kris Molina MD CHEMISTRY ORDERABLES Performing Organization Address City/State/[facility] Co de Phone Number [facility] [phone] [address] * IRON, TIBC, AND PERCENT SATURATION (06/14/2022 7:26 AM CDT) IRON 60 45 - 160 mcg/dL [facility] TIBC 357 250 - 450 mcg/dL (calc) [facility] IRON % SATURATION 17 16 - 45 % (calc) [facility] Comment: Test Performed at: [address] ??[phone] Laxmi Vaz MD Blood 06/14/2022 7:26 AM CDT 06/14/2022 7:26 AM CDT Kris Molina MD CHEMISTRY ORDERABLES [facility] [phone] [facility] [address] [address] * FERRITIN (06/14/2022 7:26 AM CDT) Pathologist [facility] FERRITIN 41 16 - 232 ng/mL [facility] Comment: Test Performed at: [facility] ??[phone] Laxmi Vaz MD Blood 06/14/2022 7:26 AM CDT 06/14/2022 7:26 AM CDT Kris Molina MD CHEMISTRY ORDERABLES Performing Organization Address City/[facility] Co de Phone Number [facility] [phone] [facility] [address] [address] * CBC WITH DIFFERENTIAL (12/04/2021 12:00 AM CDT) Pathologist [facility] WBC 9.2 3.8 - 10.8 Thousand/u L [facility] RBC 4.73 3.80 - 5.10 Million/uL [facility] HEMOGLOBIN 13.5 11.7 - 15.5 g/dL [facility] HEMATOCRIT 41.7 35.0 - 45.0 % [facility] MCV 88.2 80.0 - 100.0 fL [facility] MCH 28.5 27.0 - 33.0 pg [facility] MCHC 32.4 32.0 - 36.0 g/dL [facility] RDW 13.1 11.0 - 15.0 % [facility] PLATELETS 256 140 - 400 Thousand/u L [facility] MPV 11.3 7.5 - 12.5 fL [facility] NEUTROPHIL ABSOLUTE 6,017 1,500 - 7,800 cells/uL [facility] LYMPHOCYTE ABSOLUTE 2,530 850 - 3,900 cells/uL [facility] MONOCYTE ABSOLUTE 534 200 - 950 cells/uL [facility] EOSINOPHIL ABSOLUTE 46 15 - 500 cells/uL [facility] BASOPHILS ABSOLUTE 74 0 - 200 cells/uL [facility] NEUTROPHIL 65.4 % [facility] LYMPHOCYTES 27.5 % [facility] MONOCYTE 5.8 % [facility] EOSINOPHILS 0.5 % [facility] BASOPHILS 0.8 % [facility] Comment: FASTING:NO FASTING: NO Test Performed at: [facility] [address] [place], [place] ??[address] Ismael Savage D.O., MPH 12/04/2021 12/04/2021 11: 24 AM CDT Kris Molina MD HEMATOLOGY ORDERABLE S Performing Organization Address City/State/[facility] Co de Phone Number [facility] [phone] [facility] [address] [address] documented in this encounter Visit Diagnoses Diagnosis Chronic anemia- Primary Anemia, unspecified documented in this encounter Care Teams Public Relations Sales Marketing Relationship Specialty Start Date End Date Jade Moore ANP [address] [address] PCP - General Nurse Practitioner Adult Health 02/17/21 documented as of this encounter
--- OUTSIDE RECORDS SUMMARY | 2024-03-26 17:07 | XMS_ITS | Encounter Summary ---
Author Organization [facility] ADDISON Pedersen [facility] Address [address] [place] [address] Care Team Providers Care Data Architect Manager Name Role Phone Oscar Jade JOLIE Primary Care Provider [phone] Reason for Visit * Reason Comments Follow Up Encounter Details Date Type Department Care Team (Late st Contact Info) Description 12/12/2022 1:15 PM CDT Office Visit [facility] Oncology and Hematology - [place] [address] [facility] [address] [place] [address] Kris Molina MD [address] [facility] [address] [place] [address] Chronic anemia (Primary Dx) Social History Tobacco Use Types Packs/Day Years Used Date Smoking Tobacco: Never Smokeless Tobacco: Never Sex and Gender Information Value Date Recorded Sex Assigned at Not on file Gender Identity Not on file Sexual Orientation Not on file documented as of this encounter Last Filed Vital Signs Vital Sign Reading Time Taken Comments Blood Pressure 136/69 12/12/2022 1:00 PM CDT Pulse 89 12/12/2022 12:58 PM CDT Temperature 36.5 ??C (97.7 ??F) 12/12/2022 12:58 PM C DT Respiratory Rate 10 12/12/2022 12:58 PM CDT Oxygen Saturation 99% 12/12/2022 12:58 PM CDT Inhaled Oxygen Concentration - - Weight 102.1 kg (225 lb) 12/12/2022 12:58 PM CDT Height - - Body Mass Index 37.44 11/30/2021 11:51 AM CDT documented in this encounter Progress Notes * Kris Molina MD - 12/12/2022 1:42 PM CDT HEMATOLOGY / ONCOLOGY PROGRESS NOTE Patient Identification: Name: Franchesca Tran Age: 52 y.o. Sex: female : 1970 DIAGNOSIS Iron deficiency anemia CURRENT TREATMENT Vitamin B12 1 mg daily TREATMENT HISTORY Venofer received on March 03, 2021 SUBJECTIVE Patient came into the office for follow-up visit. She has been dealing with some tiredness and fatigue due to recent stress of moving her home. She recently built a new house. She also started havingmenstrual bleeding. No other new complaint. Review of system [...] ferritin 42 vitamin B12 695 folate 8.1 @IMAGEIMP@ Assessment: Plan: Patient Active Problem List Diagnosis Date Noted Iron deficiency anemia 02/17/2021 Iron deficiency anemia. This is likely secondary to heavy menstrual bleeding. She has received ironinfusion on March 03, 2021. Labs noted. Hemoglobin has improved but iron studies are slowly trending downward. I have recommended her to increase slow release iron to the every day basis from 3 times a week. Vitamin B12 deficiency. B12 level stable. She will continue vitamin B12 1 mg daily. Folic acid is also normal now. She will continue folic acid 0.4 mg 3 times a week. History of menstrual bleeding status post ablation in February 2021. She just started having slightmenstrual bleeding. She will follow-up with her child development director. 12/12/2022 Kris Molina MD documented in this encounter Plan of Treatment Upcoming Encounters Date Type Department Care Team (Late st Contact Info) Description 03/28/2024 11:00 AM WAREDRESSER Office Visit [facility] Oncology and Hematology - [place] [address] [place] [address] Kris Molina MD [address] [facility] [address] [place] [address] documented as of this encounter Procedures Procedure Name Priority Date/Time Associated Diagnosis Comments VITAMIN B12 AND FOLATE Routine 03/10/2023 7:19 AM WAREDRESSER Chronic anemia IRON, TIBC, AND PERCENT SATURATION Routine 03/10/2023 7:19 AM WAREDRESSER Chronic anemia FERRITIN Routine 03/10/2023 7:19 AM WAREDRESSER Chronic anemia documented in this encounter Results * VITAMIN B12 AND FOLATE (03/10/2023 7:19 AM WAREDRESSER) Pathologist [facility] VITAMIN B12 974 200 - 1100 pg/mL [facility] FOLATE, SERUM 15.0 ng/mL [facility] Comment: ? Reference Range ? Low: ? <3.4 ? Borderline: ?3.4-5.4 ? Normal: ?>5.4 Test Performed at: [facility] ??[phone] Laxmi Vaz MD Blood 03/10/2023 7:19 AM WAREDRESSER 03/10/2023 7:20 AM WAREDRESSER Kris Molina MD CHEMISTRY ORDERABLES [facility] [phone] [facility] [employer] [address] * IRON, TIBC, AND PERCENT SATURATION (03/10/2023 7:19 AM WAREDRESSER) IRON 80 45 - 160 mcg/dL [facility] TIBC 373 250 - 450 mcg/dL (calc) [facility] IRON % SATURATION 21 16 - 45 % (calc) [facility] Comment: Test Performed at: [facility] [address] [place] [address] ??[phone] Laxmi Vaz MD Blood 03/10/2023 7:19 AM WAREDRESSER 03/10/2023 7:20 AM WAREDRESSER Kris Molina MD CHEMISTRY ORDERABLES [facility] [phone] [facility] [employer] [address] [address] * FERRITIN (03/10/2023 7:19 AM WAREDRESSER) FERRITIN 48 16 - 232 ng/mL [facility] Comment: Test Performed at: [facility] ??[phone] Laxmi Vaz MD Blood 03/10/2023 7:19 AM WAREDRESSER 03/10/2023 7:20 AM WAREDRESSER Kris Molina MD CHEMISTRY ORDERABLES [facility] [phone] [facility] [employer] [address] documented in this encounter Visit Diagnoses Diagnosis Chronic anemia- Primary Anemia, unspecified documented in this encounter Care Teams Data Architect Manager Relationship Specialty Start Date End Date Jade Moore ANP [address] [phone] PCP - General Nurse Practitioner Adult Health 02/17/21 documented as of this encounter
--- OUTSIDE RECORDS SUMMARY | 2024-03-26 17:08 | XMS_ITS | Encounter Summary ---
Author Organization [facility] Address [address] [place] [address] Care Team Providers Care Service Counter Cashier Name Role Phone Jade Moore Primary Care Provider [phone] Encounter Details Date Type Department Care Team (Latest Contact Info) Description 11/03/1998 Outpatient Historical [facility] Remi Hightower MD Calculus of gallbladder with other cholecystitis, without mention of obstruction (Primary Dx) Social History Tobacco Use Types Packs/Day Years Used Date Smoking Tobacco: Never Assessed Sex and Gender Information Value Date Recorded Sex Assigned at Not on file Gender Identity Not on file Sexual Orientation Not on file documented as of this encounter Plan of Treatment Upcoming Encounters Date Type Department Care Team (Late st Contact Info) Description 03/28/2024 11:00 AM SUPERVISOR ENGRAVING Office Visit [facility] Oncology and Hematology - [place] [address] [facility] [address] [place] [address] Kris Molina MD [address] [facility] [address] [place] [address] documented as of this encounter Visit Diagnoses Diagnosis Calculus of gallbladder with other cholecystitis, without mention of obstruction- Primary documented in this encounter Care Teams Service Counter Cashier Relationship Specialty Start Date End Date Jade Moore ANP [address] [address] PCP - General Nurse Practitioner Adult Health 02/17/21 documented as of this encounter
--- OUTSIDE RECORDS SUMMARY | 2024-03-26 17:08 | XMS_ITS | Encounter Summary ---
Author Organization [facility] Address [address] [place] [address] Care Team Providers Care Wood Craftsman Name Role Phone Jade Moore Primary Care Provider [phone] Encounter Details Date Type Department Care Team (Latest Contact Info) Description 08/27/1998 Outpatient Historical [facility] OBSERVATION BED Holly Moreira MD NO ADDRESS ON FILE Threatened premature labor, antepartum(644.03) (Primary Dx) Social History Tobacco Use Types Packs/Day Years Used Date Smoking Tobacco: Never Assessed Sex and Gender Information Value Date Recorded Sex Assigned at Not on file Gender Identity Not on file Sexual Orientation Not on file documented as of this encounter Plan of Treatment Upcoming Encounters Date Type Department Care Team (Late st Contact Info) Description 03/28/2024 11:00 AM STONE FINISHER Office Visit [facility] Oncology and Hematology - [place] [address] [facility] [address] [place] [address] Kris Molina MD [address] [facility] [address] [place] [address] documented as of this encounter Visit Diagnoses Diagnosis Threatened premature labor, antepartum(644.03)- Primary Threatened premature labor, antepartum documented in this encounter Care Teams Wood Craftsman Relationship Specialty Start Date End Date Jade Moore ANP [address] [address] PCP - General Nurse Practitioner Adult Health 02/17/21 documented as of this encounter
--- OUTSIDE RECORDS SUMMARY | 2024-03-26 17:08 | XMS_ITS | Encounter Summary ---
Author Organization [facility] Address [address] [place] [address] Care Team Providers Care Supply Person Name Role Phone Jade Moore Primary Care Provider [phone] Encounter Details Date Type Department Care Team (Latest Contact Info) Description 01/20/2000 Outpatient Historical [facility] Ismael Allen Enlargement of lymph nodes (Primary Dx) Social History Tobacco Use Types Packs/Day Years Used Date Smoking Tobacco: Never Assessed Sex and Gender Information Value Date Recorded Sex Assigned at Not on file Gender Identity Not on file Sexual Orientation Not on file documented as of this encounter Plan of Treatment Upcoming Encounters Date Type Department Care Team (Late st Contact Info) Description 03/28/2024 11:00 AM ENVIRONMENTAL GEOLOGIST Office Visit [facility] Oncology and Hematology - [place] [address] [facility] [address] [place] [address] Kris Molina MD [address] [facility] [address] [place] [address] documented as of this encounter Visit Diagnoses Diagnosis Enlargement of lymph nodes- Primary documented in this encounter Care Teams Supply Person Relationship Specialty Start Date End Date Jade Moore ANP [address] [facility] [address] [place] [address] PCP - General Nurse Practitioner Adult Health 02/17/21 documented as of this encounter
--- OUTSIDE RECORDS SUMMARY | 2024-03-26 17:08 | XMS_ITS | Encounter Summary ---
Author Organization [facility] Address [address] [place] [address] Care Team Providers Care Shooter'S Helper Name Role Phone Jade Moore Primary Care Provider [phone] Encounter Details Date Type Department Care Team (Late Contact Info) Description 08/13/1999 Outpatient Historical [facility]Y [facility] Tyrel Stover MD NO ADDRESS ON FILE Er, Authorized P NO ADDRESS ON FILE Other disorders of ear(388.8) (Primary Dx) Social History Tobacco Use Types Packs/Day Years Used Date Smoking Tobacco: Never Assessed Sex and Gender Information Value Date Recorded Sex Assigned at Not on file Gender Identity Not on file Sexual Orientation Not on file documented as of this encounter Plan of Treatment Upcoming Encounters Date Type Department Care Team (Late st Contact Info) Description 03/28/2024 11:00 AM DIRECTOR OF CASINO Office Visit [facility] Oncology and Hematology - [place] [address] [facility] [address] [place] [address] Kris Molina MD [address] [facility] [address] [place] [address] documented as of this encounter Visit Diagnoses Diagnosis Other disorders of ear(388.8)- Primary Other disorders of ear documented in this encounter Care Teams Shooter'S Helper Relationship Specialty Start Date End Date Jade Moore ANP [address] [address] PCP - General Nurse Practitioner Adult Health 02/17/21 documented as of this encounter
--- OUTSIDE RECORDS SUMMARY | 2024-03-26 17:08 | XMS_ITS | Encounter Summary ---
Author Organization [facility] Address [address] [place] [address] Care Team Providers Care Knotter Hand Name Role Phone Jade Moore Primary Care Provider [phone] Encounter Details Date Type Department Care Team (Latest Contact Info) Description 09/14/1998 Inpatient Historical [facility] PATIENT IN A BED MoreiraHolly MD NO ADDRESS ON FILE Unspecified indication for care or intervention related to labor and delivery, delivered (Primary Dx) Social History Tobacco Use Types Packs/Day Years Used Date Smoking Tobacco: Never Assessed Sex and Gender Information Value Date Recorded Sex Assigned at Not on file Gender Identity Not on file Sexual Orientation Not on file documented as of this encounter Plan of Treatment Upcoming Encounters Date Type Department Care Team (Late st Contact Info) Description 03/28/2024 11:00 AM PACKAGING ASSOCIATE Office Visit [facility] Oncology and Hematology - [place] [address] [facility] [address] [place] [address] Kris Molina MD [address] [facility] [address] [place] [address] documented as of this encounter Visit Diagnoses Diagnosis Unspecified indication for care or intervention related to labor and delivery, delivered- Primary documented in this encounter Care Teams Knotter Hand Relationship Specialty Start Date End Date Jade Moore ANP [address] [address] PCP - General Nurse Practitioner Adult Health 02/17/21 documented as of this encounter
--- OUTSIDE RECORDS SUMMARY | 2024-03-26 17:28 | XMS_ITS | Clinical Summary ---
Author Organization [facility] Administrative Offices Address [address] [place] [address] Care Team Providers Care Valve Lapper Name Role Phone Sathyajose fJade Primary Care Provider [phone] Allergies No known active allergies Medications Medication [...] Department Care Team Description 03/22/2024 Orders Only [facility] Oncology and Hematology - [place] [address] [place] [address] Kris Molina MD from Last [...] st Contact Info) Description 03/28/2024 11:00 AM CONSULTANT RN Office Visit [facility] Oncology and Hematology - [place] [address] [facility] [address] [place] [address] Kris Molina MD [address] [facility] [address] [place] [address] Health Maintenance Due Date Last [...] Comments IRON PANEL Routine 03/15/2024 1:05 PM CONSULTANT RN IRON PANEL Routine 03/15/2024 1:04 PM CONSULTANT RN from Last 3 Months Results * IRON PANEL (03/15/2024 1:05 PM CONSULTANT RN) Only the most recent of2 resultswithin the time period is included. Blood Kris Molina MD CHEMISTRY ORDERABLES from Last 3 Months Care Teams Valve Lapper Relationship Specialty Start Date End Date Jade Moore ANP [address] [address] PCP - General Nurse Practitioner Adult Health 02/17/21
--- OUTSIDE RECORDS SUMMARY | 2024-03-26 17:28 | XMS_ITS | Encounter Summary ---
Author Organization [facility] Address [address] [place] [address] Care Team Providers Care Serology Teacher Name Role Phone Jade Moore Primary Care Provider [phone] Encounter Details Date Type Department Care Team [...] st Contact Info) Description 03/28/2024 11:00 AM BOX CAR BRACER Office Visit [facility] Oncology and Hematology - [place] [address] [facility] [address] [place] [address] Kris Molina MD [address] [facility] [address] [place] [address] documented as of this encounter Visit Diagnoses Not on filedocumented in this encounter Care Teams Serology Teacher Relationship Specialty Start Date End Date Jade Moore ANP [address] [facility] [address] [place] [address] PCP - General Nurse Practitioner Adult Health 02/17/21 documented as of this encounter
--- OUTSIDE RECORDS SUMMARY | 2024-03-26 17:28 | XMS_ITS | Encounter Summary ---
Author Organization [facility] Address [address] [place] [address] Care Team Providers Care Dowel Inserting Machine Operator Name Role Phone Jade Moore Primary Care Provider Encounter Details Date Type Department Care Team (Late st Contact Info) Description 09/19/2023 External Device Data STL ABSTRACTION Provider, Abstract [...] st Contact Info) Description 03/28/2024 11:00 AM GROUNDSKEEPER SUPERVISOR Office Visit [facility] Oncology and Hematology - Darell [address] [facility] [address] [place] [address] Kris Molina MD [address] [facility] [address] [place] [address] documented as of this encounter Visit Diagnoses Not on filedocumented in this encounter Care Teams Dowel Inserting Machine Operator Relationship Specialty Start Date End Date Jade Moore ANP [address] [facility] [address] [place] [address] PCP - General Nurse Practitioner Adult Health 02/17/21 documented as of this encounter
--- OUTSIDE RECORDS SUMMARY | 2024-03-26 17:28 | XMS_ITS | Encounter Summary ---
Author Organization [facility] ADDISON Pedersen [facility] Address [address] [place] [address] Care Team Providers Care Success Coach Name Role Phone Oscar Jade JOLIE Primary Care Provider [phone] Reason for Visit * Reason Comments Follow Up Encounter Details Date Type Department Care Team (Late st Contact Info) Description 09/14/2023 10:15 AM CDT Office Visit [facility] Oncology and Hematology - Darell [address] [facility] [address] [place] [address] Kris Molina MD [address] [facility] [address] [place] [address] Chronic anemia (Primary Dx) Social [...] st Contact Info) Description 03/28/2024 11:00 AM MERCHANDISING DIRECTOR Office Visit [facility] Oncology and Hematology - Dare[place] [address] [facility] [address] [place] [address] Kris Molina MD [address] [facility] [address] [place] [address] Scheduled Orders Name Type Priority [...] unspecified documented in this encounter Care Teams Success Coach Relationship Specialty Start Date End Date Jade Moore ANP [address] [phone] PCP - General Nurse Practitioner Adult Health 02/17/21 documented as of this encounter
--- OUTSIDE RECORDS SUMMARY | 2024-03-26 17:28 | XMS_ITS | Encounter Summary ---
Author Organization [facility] Address [address] [place] [address] Care Team Providers Care Senior Marketing Manager Name Role Phone Jade Moore Primary Care Provider [phone] Encounter Details Date Type Department Care Team [...] st Contact Info) Description 03/28/2024 11:00 AM COUNTY HEALTH OFFICER Office Visit [facility] Oncology and Hematology - Darell [address] [facility] 200 [place] [address] Kris Molina MD [address] [facility] [address] [place] [address] documented as of this encounter Visit Diagnoses Not on filedocumented in this encounter Care Teams Senior Marketing Manager Relationship Specialty Start Date End Date Jade Moore ANP [address] [facility] [address] [place] [address] PCP - General Nurse Practitioner Adult Health 02/17/21 documented as of this encounter
--- OUTSIDE RECORDS SUMMARY | 2024-03-26 17:28 | XMS_ITS | Encounter Summary ---
Author Organization [facility] Address [address] [place] [address] Care Team Providers Care Promotions Officer Name Role Phone Jade Moore Primary Care Provider [phone] Encounter Details Date Type Department Care Team [...] st Contact Info) Description 03/28/2024 11:00 AM HYDRATOR Office Visit [facility] Oncology and Hematology - Darell [address] [facility] [address] [place] [address] Kris Molina MD [address] [facility] [address] [place] [address] documented as of this encounter Visit Diagnoses Not on filedocumented in this encounter Care Teams Promotions Officer Relationship Specialty Start Date End Date Jade Moore ANP [address] [facility] [address] [place] [address] PCP - General Nurse Practitioner Adult Health 02/17/21 documented as of this encounter
--- OUTSIDE RECORDS SUMMARY | 2024-03-26 17:29 | XMS_ITS | Encounter Summary ---
Author Organization [facility] Address [address] [facility] Attn: Epic Prelude ADT [place] [address] Care Team Providers Care Machine Sewer Name Role Phone Jade Moore Primary Care Provider [phone] Encounter Details Date Type Department Care Team [...] COVID-19? No / Unsure 02/17/2021 2:30 PM INFUSION PHARMACIST documented as of this encounter Plan of Treatment Upcoming Encounters Date Type Department Care Team (Late st Contact Info) Description 03/28/2024 11:00 AM INFUSION PHARMACIST Office Visit [facility] Oncology and Hematology - Darell [address] [email or web address] [address] [place] [address] Kris Molina MD [address] [facility] [address] [place] [address] documented as of this encounter Visit Diagnoses Not on filedocumented in this encounter Care Teams Machine Sewer Relationship Specialty Start Date End Date Jade Moore ANP [address] [facility] [address] [place] [address] PCP - General Nurse Practitioner Adult Health 02/17/21 documented as of this encounter
--- OUTSIDE RECORDS SUMMARY | 2024-03-26 17:29 | XMS_ITS | Encounter Summary ---
Author Organization [facility] Address [address] [facility] Attn: [place] [address] Care Team Providers Care Finishing Machine Operator Name Role Phone Jade Moore JOLIE Primary Care Provider [phone] Encounter Details Date Type Department Care Team (Late st Contact Info) Description 04/15/2021 Orders Only Initial Department [address] [facility] ATTN: [place] [address] Provider, Historical Social History Tobacco Use Types Packs/Day Years Used Date Smoking Tobacco: Never Smokeless Tobacco: Never Sex and Gender Information Value Date Recorded Sex Assigned at Not on file Gender Identity Not on file Sexual Orientation Not on file documented as of this encounter Plan of Treatment Upcoming Encounters Date Type Department Care Team (Late st Contact Info) Description 03/28/2024 11:00 AM RAIL CAR REPAIRMAN Office Visit [facility] Oncology and Hematology - Darell [address] [facility] 200 [place] [address] Kris Molina MD [address] [facility] [address] [place] [address] documented as of this encounter Procedures Procedure Name Priority Date/Time Associated Diagnosis Comments CBC WITHOUT DIFFERENTIAL Routine 04/15/2021 7:19 AM RAIL CAR REPAIRMAN documented in this encounter Results * (ABNORMAL) CBC WITHOUT DIFFERENTIAL (04/15/2021 7:19 AM RAIL CAR REPAIRMAN) WBC 8.1 3.8 - 10.8 Thousand/u L [facility] RBC 4.53 3.80 - 5.10 Million/uL [facility] HEMOGLOBIN 12.2 11.7 - 15.5 g/dL [facility] HEMATOCRIT 37.3 35.0 - 45.0 % [facility] MCV 82.3 80.0 - 100.0 fL [facility] MCH 26.9(L) 27.0 - 33.0 pg [facility] MCHC 32.7 32.0 - 36.0 g/dL [facility] RDW 18.0(H) 11.0 - 15.0 % [facility] PLATELETS 228 140 - 400 Thousand/u L [facility] MPV 11.3 7.5 - 12.5 fL [facility] Comment: Test Performed at: [facility] ??[address] Ismael Savage D.O., MPH 04/15/2021 7:19 AM RAIL CAR REPAIRMAN 04/15/2021 7:20 AM RAIL CAR REPAIRMAN Kris Molina MD HEMATOLOGY ORDERABLE S Performing Organization Address City/State/[facility] Co de Phone Number [facility] [address] [place] [address] documented in this encounter Visit Diagnoses Not on filedocumented in this encounter Care Teams Finishing Machine Operator Relationship Specialty Start Date End Date Jade Moore ANP [address] [address] PCP - General Nurse Practitioner Adult Health 02/17/21 documented as of this encounter
--- OUTSIDE RECORDS SUMMARY | 2024-03-26 17:29 | XMS_ITS | Encounter Summary ---
Author Organization [facility] Address [address] [place] [address] Care Team Providers Care Corporate Webmaster Name Role Phone Jade Moore Primary Care Provider [phone] Encounter Details Date Type Department Care Team [...] st Contact Info) Description 03/28/2024 11:00 AM BRIM SETTER Office Visit [facility] Oncology and Hematology - Darell [address] [facility] 200 [place] [address] Kris Molina MD [address] [facility] [address] [place] [address] documented as of this encounter Visit Diagnoses Diagnosis Threatened premature labor, antepartum(644.03)- Primary Threatened premature labor, antepartum documented in this encounter Care Teams Corporate Webmaster Relationship Specialty Start Date End Date Jade Moore ANP [address] [address] PCP - General Nurse Practitioner Adult Health 02/17/21 documented as of this encounter
--- OUTSIDE RECORDS SUMMARY | 2024-03-26 17:29 | XMS_ITS | Encounter Summary ---
Author Organization [facility] ADDISON Pedersen [facility] Address [address] [place] [address] Care Team Providers Care Governor Assembler Name Role Phone Oscar Jade JOLIE Primary Care Provider [phone] Reason for Visit * Reason Comments Establish Care Encounter Details Date Type Department Care Team (Late st Contact Info) Description 02/17/2021 3:00 PM CERTIFIED PHARMACY TECHNICIAN Office Visit [facility] Oncology and Hematology - Darell [address] [facility] [address] [place] [address] Kris Molina MD [address] [facility] [address] [place] [address] Chronic anemia (Primary Dx); Iron [...] COVID-19? No / Unsure 02/17/2021 2:30 PM CERTIFIED PHARMACY TECHNICIAN documented as of this encounter Last Filed Vital Signs Vital Sign Reading Time Taken Comments Blood Pressure 141/83 02/17/2021 2:45 PM CERTIFIED PHARMACY TECHNICIAN Pulse 97 02/17/2021 2:45 PM CERTIFIED PHARMACY TECHNICIAN Temperature 37 ??C (98.6 ??F) 02/17/2021 2:45 PM CERTIFIED PHARMACY TECHNICIAN Respiratory Rate 18 02/17/2021 2:45 PM CERTIFIED PHARMACY TECHNICIAN Oxygen Saturation 96% 02/17/2021 2:45 PM CERTIFIED PHARMACY TECHNICIAN Inhaled Oxygen Concentration - - Weight 97.5 kg (215 lb) 02/17/2021 2:45 PM CERTIFIED PHARMACY TECHNICIAN Height 165.1 cm (5' 5 ) 02/17/2021 2:45 PM CERTIFIED PHARMACY TECHNICIAN Body Mass Index 35.78 02/17/2021 2:45 PM CERTIFIED PHARMACY TECHNICIAN documented in this encounter Progress Notes * [...] dysuria; no frequency; no hesitancy; no hematuria ONLINE COMMUNICATIONS SPECIALIST: Complain of heavy menstrual bleeding Musculosketetal: no [...] Heavy menstrual bleeding. She has seen the sales project engineer and plan to have uterine ablation on [...] of the total time spent counseling patient [id number]. CC:?Jade Moore, JOLIE IFIED PHARMACY TECHNICIAN documented in this encounter Plan of Treatment Upcoming Encounters Date Type Department Care Team (Late st Contact Info) Description 03/28/2024 11:00 AM CERTIFIED PHARMACY TECHNICIAN Office Visit [facility] Oncology and Hematology - Darell [address] [facility] [address] [place] [address] Kris Molina MD [address] [facility] [address] [place] [address] Scheduled Orders Name Type Priority Associated Diagnoses Orde r Schedule CBC WITHOUT DIFFERENTIAL Lab Stat Chronic anemia Expected: 04/14/2021, Expires: 02/17/2022 documented as of this encounter Procedures Procedure Name Priority Date/Time Associated Diagnosis Comments FERRITIN Routine 04/13/2021 7:17 AM CERTIFIED PHARMACY TECHNICIAN Chronic anemia documented in this encounter Results * IRON, TIBC, AND PERCENT SATURATION (05/24/2021 6:30 AM CERTIFIED PHARMACY TECHNICIAN) IRON 58 40 - 190 mcg/dL [facility] TIBC 358 250 - 450 mcg/dL (calc) [facility] IRON % SATURATION 16 16 - 45 % (calc) [facility] Comment: Test Performed at: [facility] ??[phone] Ismael Savage D.O., MPH Blood 05/24/2021 6:30 AM CERTIFIED PHARMACY TECHNICIAN 05/24/2021 6:30 AM CERTIFIED PHARMACY TECHNICIAN Kris Molina MD CHEMISTRY ORDERABLES Performing Organization Address [facility] Co de Phone Number [facility] [address] [place] [address] * FERRITIN (05/24/2021 6:30 AM CERTIFIED PHARMACY TECHNICIAN) FERRITIN 60 16 - 232 ng/mL [facility] Comment: Test Performed at: [facility] ??[phone] Ismael Savage D.O., MPH Blood 05/24/2021 6:30 AM CERTIFIED PHARMACY TECHNICIAN 05/24/2021 6:30 AM CERTIFIED PHARMACY TECHNICIAN Kris Molina MD CHEMISTRY ORDERABLES Performing Organization Address [facility] Co de Phone Number [facility] [address] [place] [address] * VITAMIN B12 LEVEL (04/13/2021 7:17 AM CERTIFIED PHARMACY TECHNICIAN) VITAMIN B12 409 200 - 1100 pg/mL [facility] Comment: Test Performed at: [facility] ??[phone] Ismael Savage D.O., MPH Blood 04/13/2021 7:17 AM CERTIFIED PHARMACY TECHNICIAN 04/13/2021 7:18 AM CERTIFIED PHARMACY TECHNICIAN Kris Molina MD CHEMISTRY ORDERABLES Performing Organization Address City/[facility]/ZIP Co de Phone Number [facility] [address] [place] [address] * IRON, TIBC, AND PERCENT SATURATION (04/13/2021 7:17 AM CERTIFIED PHARMACY TECHNICIAN) IRON 69 40 - 190 mcg/dL [facility] TIBC 348 250 - 450 mcg/dL (calc) [facility] IRON % SATURATION 20 16 - 45 % (calc) [facility] Comment: Test Performed at: [facility] [address] [place], [place] ??[phone] Ismael Savage D.O., MPH Blood 04/13/2021 7:17 AM CERTIFIED PHARMACY TECHNICIAN 04/13/2021 7:18 AM CERTIFIED PHARMACY TECHNICIAN Kris Molina MD CHEMISTRY ORDERABLES Performing Organization Address [facility] Co de Phone Number [facility] [address] [place] [address] * FERRITIN (04/13/2021 7:17 AM CERTIFIED PHARMACY TECHNICIAN) FERRITIN 83 16 - 232 ng/mL [facility] Comment: Test Performed at: [facility] [address] [place], [place] ??[address] Ismael Savage D.O., MPH Blood 04/13/2021 7:17 AM CERTIFIED PHARMACY TECHNICIAN 04/13/2021 7:18 AM CERTIFIED PHARMACY TECHNICIAN Kris Molina MD CHEMISTRY ORDERABLES Performing Organization Address City/[facility]/ZIP Co de Phone Number [facility] [address] [place] [address] documented in this encounter Visit Diagnoses Diagnosis Chronic anemia- Primary Anemia, unspecified Iron deficiency anemia due to chronic blood loss Iron deficiency anemia secondary to blood loss (chronic) documented in this encounter Care Teams Governor Assembler Relationship Specialty Start Date End Date Jade Moore ANP [address] [address] PCP - General Nurse Practitioner Adult Health 02/17/21 documented as of this encounter
--- OUTSIDE RECORDS SUMMARY | 2024-03-26 17:29 | XMS_ITS | Encounter Summary ---
Author Organization [facility] ADDISON Pedersen [employer] Address [address] [place] [address] Care Team Providers Care Tube And Rod Straightener Name Role Phone Sathyajose f Jade DAVE Primary Care Provider Reason for Visit * Reason Comments Follow Up Encounter Details Date Type Department Care Team (Late st Contact Info) Description 03/15/2023 11:00 AM COMMERCIAL BAKER HELPER Office Visit [facility] Oncology and Hematology - Darell [address] [place] [address] Nithin Bennett MD [address] [place] [address] Chronic anemia (Primary Dx) Social [...] Comments Blood Pressure 156/97 03/15/2023 10:50 AM COMMERCIAL BAKER HELPER Pulse 90 03/15/2023 10:49 AM COMMERCIAL BAKER HELPER Temperature 35.8 ??C (96.4 ??F) 03/15/2023 10:[address] Respiratory Rate 10 03/15/2023 10:49 AM COMMERCIAL BAKER HELPER Oxygen Saturation - - Inhaled Oxygen Concentration - - Weight 103.9 kg (229 lb) 03/15/2023 10:49 AM COMMERCIAL BAKER HELPER Height - - Body Mass Index 38.11 [...] slightmenstrual bleeding. She will follow-up with her stage electrician. Health screening : she is overdue for mammogram and colonscopy and recommend to follow with PCP to arrange it Plan : Continue the iron supplement orally daily Follow up in 6 month with ferritin level, iron panel, b12 and folate level. Recommend to arrange colonoscopy and mammogram with her pcp. ERCIAL BAKER HELPER documented in this encounter Plan of Treatment Upcoming Encounters Date Type Department Care Team (Late st Contact Info) Description 03/28/2024 11:00 AM COMMERCIAL BAKER HELPER Office Visit [facility] Oncology and Hematology [facility] [address] [facility] [address] [place] [address] Kris Molina MD [address] [facility] [address] [place] [address] Scheduled Orders Name Type Priority [...] unspecified documented in this encounter Care Teams Tube And Rod Straightener Relationship Specialty Start Date End Date Jade Moore ANP [address] [address] PCP - General Nurse Practitioner Adult Health 02/17/21 documented as of this encounter
--- OUTSIDE RECORDS SUMMARY | 2024-03-26 17:29 | XMS_ITS | Encounter Summary ---
Author Organization [facility] Address [address] [place] [address] Care Team Providers Care Tire Center Supervisor Name Role Phone Jade Moore Primary Care Provider [phone] Encounter Details Date Type Department Care Team [...] st Contact Info) Description 03/28/2024 11:00 AM ASSIGNMENT MANAGER Office Visit [facility] Oncology and Hematology - Darell [address] [facility] [address] [place] [address] Kris Molina MD [address] [facility] [address] [place] [address] documented as of this encounter Visit Diagnoses Not on filedocumented in this encounter Care Teams Tire Center Supervisor Relationship Specialty Start Date End Date Jade Moore ANP [address] [facility] [address] [place] [address] PCP - General Nurse Practitioner Adult Health 02/17/21 documented as of this encounter
--- OUTSIDE RECORDS SUMMARY | 2024-03-26 17:29 | XMS_ITS | Encounter Summary ---
Author Organization [facility] Address [address] [place] [address] Care Team Providers Care Environmental Remediation Engineer Name Role Phone Jade Moore Primary Care Provider [phone] Encounter Details Date Type Department Care Team [...] st Contact Info) Description 03/28/2024 11:00 AM BACK TENDER INSULATION BOARD Office Visit [facility] Oncology and Hematology - Darell [address] [facility] [address] [place] [address] Kris Molina MD [address] [facility] [address] [place] [address] documented as of this encounter Visit Diagnoses Not on filedocumented in this encounter Care Teams Environmental Remediation Engineer Relationship Specialty Start Date End Date Jade Moore ANP [address] [facility] [address] [place] [address] PCP - General Nurse Practitioner Adult Health 02/17/21 documented as of this encounter
--- OUTSIDE RECORDS SUMMARY | 2024-03-26 17:29 | XMS_ITS | Encounter Summary ---
Author Organization [facility] Address [address] [place] [address] Care Team Providers Care Editor Greeting Card Name Role Phone Jade Moore Primary Care Provider [phone] Encounter Details Date Type Department Care Team [...] st Contact Info) Description 03/28/2024 11:00 AM ULTRASONIC TESTER Office Visit [facility] Oncology and Hematology - Darell [address] [facility] [address] [place] [address] Kris Molina MD [address] [facility] [address] [place] [address] documented as of this encounter Visit Diagnoses Not on filedocumented in this encounter Care Teams Editor Greeting Card Relationship Specialty Start Date End Date Jade Moore ANP [address] [facility] [address] [place] [address] PCP - General Nurse Practitioner Adult Health 02/17/21 documented as of this encounter
--- OUTSIDE RECORDS SUMMARY | 2024-03-26 17:29 | XMS_ITS | Encounter Summary ---
Author Organization [facility] [employer] [facility] Address [address] [place] [address] Care Team Providers Care Pizza Hut Team Member Name Role Phone Oscar Jade JOLIE Primary Care Provider [phone] Reason for Visit * Reason Comments Follow Up 2 month f/u with lab s Encounter Details Date Type Department Care Team (Late st Contact Info) Description 05/26/2021 10:00 AM SILHOUETTE ARTIST Office Visit [facility] Oncology and Hematology - [place] [address] [place] [address] [facility] 200 [place] [address] Kris Molina MD [address] [facility] [address] [place] [address] Chronic anemia (Primary Dx) Social [...] COVID-19? No / Unsure 05/26/2021 9:49 AM SILHOUETTE ARTIST documented as of this encounter Last Filed Vital Signs Vital Sign Reading Time Taken Comments Blood Pressure 139/84 05/26/2021 10:09 AM SILHOUETTE ARTIST Pulse 80 05/26/2021 10:09 AM SILHOUETTE ARTIST Temperature 36.6 ??C (97.9 ??F) 05/26/2021 1 0:09 AM SILHOUETTE ARTIST Respiratory Rate - - Oxygen Saturation 98% 05/26/2021 10: 09 AM SILHOUETTE ARTIST Inhaled Oxygen Concentration - - Weight 102.5 kg (225 lb 14.4 oz) 2021 10:09 AM SILHOUETTE ARTIST Height 165.1 cm (5' 5 ) 05/26/2021 10:0 9 AM SILHOUETTE ARTIST Body Mass Index 37.59 05/26/2021 10:09 AM SILHOUETTE ARTIST documented in this encounter Progress Notes * [...] a tobacco user. 05/26/2021 Kris Molina MD OUETTE ARTIST documented in this encounter Plan of Treatment Upcoming Encounters Date Type Department Care Team (Late st Contact Info) Description 03/28/2024 11:00 AM SILHOUETTE ARTIST Office Visit [facility] Oncology and Hematology - [place] [address] [facility] 200 [place] [address] Kris Molina MD [address] [facility] [address] [place] [address] Scheduled Orders Name Type Priority [...] VITAMIN B12 333 200 - 1100 pg/mL [employer] [facility] Comment: Please Note: Although the reference range for vitamin B12 is 200-1100 pg/mL, it has been reported that between 5 and 10% of patients with values between 200 and 400 pg/mL may experience neuropsychiatric and hematologic abnormalities due to occult B12 deficiency; less than 1% of patients with values above 400 pg/mL will have symptoms. FOLATE, SERUM 8.7 ng/mL [employer] [facility] Comment: ? Reference Range ? Low: ? <3.4 ? Borderline: ?3.4-5.4 ? Normal: ?>5.4 VARIFIED ALL INFO FASTING:NO FASTING: NO Test Performed at: [facility] [address] [place] [address] ??[phone] Ismael Savage D.O., MPH Blood 11/26/2021 9:52 AM CDT 11/26/2021 9:52 AM CDT Kris Molina MD CHEMISTRY ORDERABLES [facility] [phone] [facility] [address] [place] [address] * IRON, TIBC, AND PERCENT SATURATION (11/26/2021 9:52 AM CDT) IRON 93 45 - 160 mcg/dL [facility] TIBC 380 250 - 450 mcg/dL (calc) [facility] IRON % SATURATION 24 16 - 45 % (calc) [facility] Comment: VARIFIED ALL INFO FASTING:NO FASTING: NO Test Performed at: [facility] [address] [place] [address] ??[phone] Ismael Savage D.O., MPH Blood 11/26/2021 9:52 AM CDT 11/26/2021 9:52 AM CDT Kris Molina MD CHEMISTRY ORDERABLES Performing Organization Address City/[facility] Co de Phone Number [facility] [phone] [facility] [employer] [address] * FERRITIN (11/26/2021 9:52 AM CDT) FERRITIN 51 16 - 232 ng/mL [facility] Comment: VARIFIED ALL INFO FASTING:NO FASTING: NO Test Performed at: [facility] ??[phone] Ismael Savage D.O., MPH Blood 11/26/2021 9:52 AM CDT 11/26/2021 9:52 AM CDT Kris Molina MD CHEMISTRY ORDERABLES Performing Organization Address City/[facility]/ZIP Co de Phone Number [facility] [phone] [facility] [employer] [address] documented in this encounter Visit Diagnoses Diagnosis Chronic anemia- Primary Anemia, unspecified documented in this encounter Care Teams Pizza Hut Team Member Relationship Specialty Start Date End Date Jade Moore ANP [address] [address] PCP - General Nurse Practitioner Adult Health 02/17/21 documented as of this encounter
--- OUTSIDE RECORDS SUMMARY | 2024-03-26 17:29 | XMS_ITS | Encounter Summary ---
Author Organization [facility] Address [address] [place] [address] Care Team Providers Care Tube Buffer Name Role Phone Jade Moore Primary Care Provider [phone] Encounter Details Date Type Department Care Team [...] st Contact Info) Description 03/28/2024 11:00 AM VETERINARY ATTENDANT Office Visit [facility] Oncology and Hematology - [place] [address] [facility] 200 [place] [address] Kris Molina MD [address] [facility] [address] [place] [address] documented as of this encounter Visit Diagnoses Diagnosis Previous delivery, delivered, with or without mention of antepartum condition- Primary documented in this encounter Care Teams Tube Buffer Relationship Specialty Start Date End Date Jade Moore ANP [address] [address] PCP - General Nurse Practitioner Adult Health 02/17/21 documented as of this encounter
--- OUTSIDE RECORDS SUMMARY | 2024-03-26 17:29 | XMS_ITS | Encounter Summary ---
Author Organization [facility] Address [address] [facility] Attn: Epic Prelude ADT [place]RIST[place] MESSER [address] Care Team Providers Care Loan Broker Name Role Phone Jade Moore Primary Care Provider [phone] Encounter Details Date Type Department Care Team [...] st Contact Info) Description 03/28/2024 11:00 AM ASPNET DEVELOPER Office Visit [facility] Oncology and Hematology - [place] [address] [facility] 200 [place] [address] Kris Molnia MD [address] [facility] [address] [place] [address] documented as of this encounter Visit Diagnoses Not on filedocumented in this encounter Care Teams Loan Broker Relationship Specialty Start Date End Date Jade Moore ANP [address] [facility] [address] [place] [address] PCP - General Nurse Practitioner Adult Health 02/17/21 documented as of this encounter
--- OUTSIDE RECORDS SUMMARY | 2024-03-26 17:29 | XMS_ITS | Encounter Summary ---
Author Organization [facility] Address [address] [facility] Attn: [place] [address] Care Team Providers Care Money Manager Name Role Phone Jade Moore JOLIE Primary Care Provider [phone] Encounter Details Date Type Department Care Team (Late st Contact Info) Description 06/14/2022 Orders Only Initial Department [address] [facility] ATTN: [place] [address] Provider, Historical Chronic anemia Social History Tobacco [...] st Contact Info) Description 03/28/2024 11:00 AM THEATRE ARTS PROFESSOR Office Visit [facility] Oncology and Hematology - [place] [address] [facility] 200 [place] [address] Kris Molina MD [address] [facility] [address] [place] [address] documented as of this encounter [...] AND FOLATE (06/14/2022 7:26 AM CDT) Pathologist [facility] VITAMIN B12 564 200 - 1100 pg/mL [facility] FOLATE, SERUM 4.7(L) ng/mL [facility] Comment: ? Reference Range ? Low: ? <3.4 ? Borderline: ?3.4-5.4 ? Normal: ?>5.4 Test Performed at: [facility] [address] ??[phone] Laxmi Vaz MD Blood 06/14/2022 7:26 AM CDT 06/14/2022 7:26 AM CDT Kris Molina MD CHEMISTRY ORDERABLES [facility] [phone] [facility] [employer] [address] * FERRITIN (06/14/2022 7:26 AM CDT) Pathologist [facility] FERRITIN 41 16 - 232 ng/mL [facility] Comment: Test Performed at: [facility] [address] [place], [place] ??[address] Laxmi Vaz MD Blood 06/14/2022 7:26 AM CDT 06/14/2022 7:26 AM CDT Kris Molina MD CHEMISTRY ORDERABLES Performing Organization Address City/[facility]/ZIP Co de Phone Number [facility] [phone] [facility] [address] [place] [address] * IRON, TIBC, AND PERCENT SATURATION (06/14/2022 7:26 AM CDT) IRON 60 45 - 160 mcg/dL [facility] TIBC 357 250 - 450 mcg/dL (calc) [facility] IRON % SATURATION 17 16 - 45 % (calc) [facility] Comment: Test Performed at: [facility] ??[address] Laxmi Vaz MD Blood 06/14/2022 7:26 AM CDT 06/14/2022 7:26 AM CDT Kris Molina MD CHEMISTRY ORDERABLES Performing Organization Address City/[facility]/ZIP Co de Phone Number [facility] [phone] [facility] [address] [place] [address] * CBC WITH DIFFERENTIAL (06/14/2022 7:26 AM [...] [facility] Comment: Test Performed at: [address] ??[address] Laxmi Vaz MD 06/14/2022 7:26 AM CDT 06/14/2022 7:26 AM CDT Kris Molina MD HEMATOLOGY ORDERABLE S [facility] [phone] [address] documented in this encounter Visit Diagnoses Diagnosis Chronic anemia Anemia, unspecified documented in this encounter Care Teams Money Manager Relationship Specialty Start Date End Date Jade Moore ANP [address] [phone] PCP - General Nurse Practitioner Adult Health 02/17/21 documented as of this encounter
--- OUTSIDE RECORDS SUMMARY | 2024-03-26 17:29 | XMS_ITS | Encounter Summary ---
Author Organization [facility] Address [address] [place] [address] Care Team Providers Care Associate Faculty Name Role Phone Jade Moore Primary Care Provider [phone] Encounter Details Date Type Department Care Team [...] st Contact Info) Description 03/28/2024 11:00 AM HOSPITAL PLAN ADMINISTRATOR Office Visit [facility] Oncology and Hematology - [place] [address] [facility] 200 [place] [address] Kris Molina MD [address] [facility] [address] [place] [address] documented as of this encounter Visit Diagnoses Diagnosis Other disorders of ear(388.8)- Primary Other disorders of ear documented in this encounter Care Teams Associate Faculty Relationship Specialty Start Date End Date Jade Moore ANP [address] [address] PCP - General Nurse Practitioner Adult Health 02/17/21 documented as of this encounter
--- OUTSIDE RECORDS SUMMARY | 2024-03-26 17:29 | XMS_ITS | Encounter Summary ---
Author Organization [facility] Address [address] [facility] Attn: Epic Prelude ADT [place]ESS[place] [address] Care Team Providers Care Child Center Assistant Name Role Phone Jade Moore Primary Care Provider [phone] Encounter Details Date Type Department Care Team [...] st Contact Info) Description 03/28/2024 11:00 AM MANAGER METAL Office Visit [facility] Oncology and Hematology - [place] [address] [facility] 200 [place] [address] Kris Molina MD [address] [facility] [address] [place] [address] documented as of this encounter Visit Diagnoses Not on filedocumented in this encounter Care Teams Child Center Assistant Relationship Specialty Start Date End Date Jade Moore ANP [address] [facility] [address] [place] [address] PCP - General Nurse Practitioner Adult Health 02/17/21 documented as of this encounter
--- OUTSIDE RECORDS SUMMARY | 2024-03-26 17:29 | XMS_ITS | Encounter Summary ---
Author Organization [facility] Address [address] [place] [address] Care Team Providers Care Rental Salesperson Name Role Phone Jade Moore JOLIE Primary Care Provider [phone] Encounter Details Date Type Department Care Team (Latest Contact Info) Description 04/27/2006 Inpatient Historical HIS OB PREADMIT Holly Moreira MD NO ADDRESS ON FILE Prev [id number] (Primary Dx) Social History Tobacco Use Types Packs/Day Years Used Date Smoking Tobacco: Never Assessed Sex and Gender Information Value Date Recorded Sex Assigned at Not on file Gender Identity Not on file Sexual Orientation Not on file documented as of this encounter Plan of Treatment Upcoming Encounters Date Type Department Care Team (Late st Contact Info) Description 03/28/2024 11:00 AM INFORMATION SYSTEMS SECURITY OFFICER Office Visit [facility] Oncology and Hematology - [place] [address] [facility] 200 [place] [address] Kris Molina MD [address] [facility] [address] [place] [address] documented as of this encounter Procedures Procedure Name Priority Date/Time Associated Diagnosis Comments BLOOD GAS CORD VENOUS Routine 04/27/2006 9:57 AM INFORMATION SYSTEMS SECURITY OFFICER BLOOD GAS CORD ARTERIAL Routine 04/27/2006 9:57 AM INFORMATION SYSTEMS SECURITY OFFICER CBC WITH DIFFERENTIAL Routine 04/26/2006 9:53 AM INFORMATION SYSTEMS SECURITY OFFICER CBC WITH DIFFERENTIAL Routine 04/26/2006 9:53 AM INFORMATION SYSTEMS SECURITY OFFICER URINALYSIS W/REFLEX MICROSCOPIC Routine 04/26/2006 9:53 AM INFORMATION SYSTEMS SECURITY OFFICER documented in this encounter Results * (ABNORMAL) BLOOD GAS CORD VENOUS (04/27/2006 9:57 AM INFORMATION SYSTEMS SECURITY OFFICER) PH CORD VENOUS 7.11(L) 7.23 - 7.46 [...] 22.5 g/dL INTERFACE SYSTEM 04/27/2006 9:57 AM INFORMATION SYSTEMS SECURITY OFFICER Holly MENDEZ Performing Organization Address [facility] de Phone Number INTERFACE SYSTEM Refer to clinic/hospital department * (ABNORMAL) BLOOD GAS CORD ARTERIAL (04/27/2006 9:57 AM INFORMATION SYSTEMS SECURITY OFFICER) PH CORD ARTERIAL 7.08(L) 7.14 - 7.40 [...] 22.5 g/dL INTERFACE SYSTEM 04/27/2006 9:57 AM INFORMATION SYSTEMS SECURITY OFFICER Holly MENDEZ Performing Organization Address City/[facility]/ZIP Co de Phone Number INTERFACE SYSTEM Refer to clinic/hospital department * (ABNORMAL) URINALYSIS (04/26/2006 9:53 AM INFORMATION SYSTEMS SECURITY OFFICER) COLOR UA Yellow INTERFACE SYSTEM CLARITY UA [...] /HPF INT ERFACE SYSTEM 04/26/2006 9:53 AM INFORMATION SYSTEMS SECURITY OFFICER Holly Moreira MD URINE ORDE RABLES Performing Organization Address [facility] de Phone Number INTERFACE SYSTEM Refer to clinic/hospital department * (ABNORMAL) CBC WITH DIFFERENTIAL (04/26/2006 9:53 AM INFORMATION SYSTEMS SECURITY OFFICER) NEUTROPHILS 77(H) 45 - 70 % INTERFAC [...] 0.20 K/uL INTERFACE SYSTEM 04/26/2006 9:53 AM INFORMATION SYSTEMS SECURITY OFFICER Holly Moreira MD HEMATOLOGY ORDERABLES Performing Organization Address [facility] de Phone Number INTERFACE SYSTEM Refer to clinic/hospital department * (ABNORMAL) CBC WITH DIFFERENTIAL (04/26/2006 9:53 AM INFORMATION SYSTEMS SECURITY OFFICER) WBC 10.6(H) 4.0 - 9.8 K/uL INTERFACE [...] 12.4 fL INTERFACE SYSTEM 04/26/2006 9:53 AM INFORMATION SYSTEMS SECURITY OFFICER Holly Moreira MD HEMATOLOGY ORDERABLES Performing Organization Address [facility] de Phone Number INTERFACE SYSTEM Refer to clinic/hospital department documented in this encounter Visit Diagnoses Diagnosis Previous delivery, delivered, with or without mention of antepartum condition- Primary documented in this encounter Care Teams Rental Salesperson Relationship Specialty Start Date End Date Jade Moore ANP [address] [address] PCP - General Nurse Practitioner Adult Health 02/17/21 documented as of this encounter
--- OUTSIDE RECORDS SUMMARY | 2024-03-26 17:29 | XMS_ITS | Encounter Summary ---
Author Organization [facility] Address [address] [place] [address] Care Team Providers Care Campaign Management Senior Manager Name Role Phone Jade Moore Primary Care Provider [phone] Encounter Details Date Type Department Care Team [...] st Contact Info) Description 03/28/2024 11:00 AM STRATEGIES ANALYST Office Visit [facility] Oncology and Hematology - [place] [address] [facility] 200 [place] [address] Kris Molina MD [address] [facility] [address] [place] [address] documented as of this encounter Visit Diagnoses Diagnosis Calculus of gallbladder with other cholecystitis, without mention of obstruction- Primary documented in this encounter Care Teams Campaign Management Senior Manager Relationship Specialty Start Date End Date Jade Moore ANP [address] [address] PCP - General Nurse Practitioner Adult Health 02/17/21 documented as of this encounter
--- OUTSIDE RECORDS SUMMARY | 2024-03-26 17:29 | XMS_ITS | Encounter Summary ---
Author Organization [facility] Address [address] [facility] Attn: Epic Prelude ADT [place]ESS[place] [address] Care Team Providers Care Chimney Mechanic Name Role Phone Jade Moore Primary Care Provider [phone] Encounter Details Date Type Department Care Team [...] COVID-19? No / Unsure 05/26/2021 9:49 AM BLASTING COAL MINER documented as of this encounter Plan of Treatment Upcoming Encounters Date Type Department Care Team (Late st Contact Info) Description 03/28/2024 11:00 AM BLASTING COAL MINER Office Visit [facility] Oncology and Hematology - [place] [address] [facility] 200 [place] [address] Kris Molina MD [address] [facility] [address] [place] [address] documented as of this encounter Visit Diagnoses Not on filedocumented in this encounter Care Teams Chimney Mechanic Relationship Specialty Start Date End Date Jade Moore ANP [address] [facility] [address] [place] [address] PCP - General Nurse Practitioner Adult Health 02/17/21 documented as of this encounter
--- OUTSIDE RECORDS SUMMARY | 2024-03-26 17:29 | XMS_ITS | Encounter Summary ---
Author Organization [facility] Address [address] [place] [address] Care Team Providers Care Probation Officer Name Role Phone Jade Moore Primary [...] st Contact Info) Description 03/28/2024 11:00 AM MARKETING AND DEVELOPMENT COORDINATOR Office Visit [facility] Oncology and Hematology - [place] [address] [facility] 200 [place] [address] Kris Molina MD [address] [facility] [address] [place] [address] documented as of this encounter Visit Diagnoses Diagnosis Unspecified indication for care or intervention related to labor and delivery, delivered- Primary documented in this encounter Care Teams Probation Officer Relationship Specialty Start Date End Date Jade Moore ANP [address] [address] PCP - General Nurse Practitioner Adult Health 02/17/21 documented as of this encounter
--- OUTSIDE RECORDS SUMMARY | 2024-03-26 17:29 | XMS_ITS | Encounter Summary ---
Author Organization [facility] ADDISON [facility]ersen [facility] Address [address] [place] [address] Care Team Providers Care Transmission And Protection Engineer Name Role Phone Oscar Jdae DAVE Primary Care Provider [phone] Reason for Visit * Reason Comments Follow Up Encounter Details Date Type Department Care Team (Late st Contact Info) Description 11/30/2021 11:30 AM CDT Office Visit [facility] Oncology and Hematology - [place] [address] [facility] 200 [place] [address] Kris Molina MD [address] [facility] [address] [place] [address] Chronic anemia (Primary Dx) Social [...] st Contact Info) Description 03/28/2024 11:00 AM METAL MINER Office Visit [facility] Oncology and Hematology - [place] [address] [facility] [address] [place] [place] [address] Kris Molina MD [address] [facility] [address] [place] [address] documented as of this [...] ?3.4-5.4 ? Normal: ?>5.4 Test Performed at: [address] ??[phone] Laxmi Vaz MD Blood 06/14/2022 7:26 AM CDT 06/14/2022 7:26 AM CDT Kris Molina MD CHEMISTRY ORDERABLES Performing Organization Address City/State/[facility] Co de Phone Number [facility] [phone] [address] * IRON, TIBC, AND PERCENT SATURATION (06/14/2022 7:26 AM CDT) IRON 60 45 - 160 mcg/dL [facility] TIBC 357 250 - 450 mcg/dL (calc) [facility] IRON % SATURATION 17 16 - 45 % (calc) [facility] Comment: Test Performed at: [address] ??[phone] Laxmi Vaz MD Blood 06/14/2022 7:26 AM CDT 06/14/2022 7:26 AM CDT Kris Molina MD CHEMISTRY ORDERABLES [facility] [phone] [facility] [employer] [address] * FERRITIN (06/14/2022 7:26 AM CDT) Pathologist [facility] FERRITIN 41 16 - 232 ng/mL [facility] Comment: Test Performed at: [facility] [employer] ??[phone] Laxmi Vaz MD Blood 06/14/2022 7:26 AM CDT 06/14/2022 7:26 AM CDT Kris Molina MD CHEMISTRY ORDERABLES Performing Organization Address City/[facility] Co de Phone Number [facility] [phone] [facility] [employer] [address] * CBC WITH DIFFERENTIAL (12/04/2021 12:00 AM CDT) Pathologist [facility] WBC 9.2 3.8 - 10.8 Thousand/u L [...] Comment: FASTING:NO FASTING: NO Test Performed at: [facility] [employer] [address] [place], [place] ??[address] Ismael Savage D.O., MPH 12/04/2021 12/04/2021 11: 24 AM CDT Kris Molina MD HEMATOLOGY ORDERABLE S Performing Organization Address City/State/[facility] Co de Phone Number [facility] [phone] [facility] [employer] [address] documented in this encounter Visit Diagnoses Diagnosis Chronic anemia- Primary Anemia, unspecified documented in this encounter Care Teams Transmission And Protection Engineer Relationship Specialty Start Date End Date Jade Moore ANP [address] [address] PCP - General Nurse Practitioner Adult Health 02/17/21 documented as of this encounter
--- OUTSIDE RECORDS SUMMARY | 2024-03-26 17:29 | XMS_ITS | Encounter Summary ---
Author Organization [facility] [employer] [facility] Address [address] [place] [address] Care Team Providers Care Clinical Staff Rn Name Role Phone Jade Moore JOLIE Primary Care Provider [phone] Reason for Visit * Reason Onset Date Comments Erroneous encounter-disregard 04/30/2021 Encounter Details Date Type Department Care Team ([facility] Contact Info) Description 04/30/2021 Telephone [facility] Oncology and Hematology [facility] Edwin Augustin [address] [place] [address] Kris Molina MD [address] [place] [address] [employer] [address] [place] [address] Erroneous encounter-disregard Social History Tobacco Use Types Packs/Day Years Used Date Smoking Tobacco: Never Smokeless Tobacco: Never Sex and Gender Information Value Date Recorded Sex Assigned at Not on file Gender Identity Not on file Sexual Orientation Not on file documented as of this encounter Plan of Treatment Upcoming Encounters Date Type Department Care Team (Late Contact Info) Description 03/28/2024 11:00 AM VESSEL SPECIALIST Office Visit [facility] Oncology [facility] Hemat[facility] Alisa Augustin [address] [place] [address] Kris Molina MD [facility] [address] [place] [address] documented as of this encounter Visit Diagnoses Not on filedocumented in this encounter Care Teams Clinical Staff Rn Relationship Specialty Start Date End Date Jade Moore ANP [address] [address] PCP - General Nurse Practitioner Adult Health 02/17/21 documented as of this encounter
--- OUTSIDE RECORDS SUMMARY | 2024-03-26 17:29 | XMS_ITS | Encounter Summary ---
Author Organization [facility] Address [address] [place] [address] Care Team Providers Care Yard General Car Supervisor Name Role Phone Jade Moore Primary Care Provider [phone] Encounter Details Date Type Department Care Team [...] st Contact Info) Description 03/28/2024 11:00 AM EXTRACTION OPERATOR Office Visit [facility] Oncology and Hematology - [place] [address] [facility] [address] [place] [address] Kris Molina MD [address] [facility] [address] [place] [address] documented as of this encounter Visit Diagnoses Not on filedocumented in this encounter Care Teams Yard General Car Supervisor Relationship Specialty Start Date End Date Jade Moore ANP [address] [facility] [address] [place] [address] PCP - General Nurse Practitioner Adult Health 02/17/21 documented as of this encounter
--- OUTSIDE RECORDS SUMMARY | 2024-03-26 17:29 | XMS_ITS | Encounter Summary ---
Author Organization [facility] ADDISON Pedersen [facility] Address [address] [place] [address] Care Team Providers Care Stave Saw Operator Name Role Phone Oscar Jade JOLIE Primary Care Provider [phone] Reason for Visit * Reason Comments Follow Up Encounter Details Date Type Department Care Team (Late st Contact Info) Description 06/16/2022 1:15 PM CDT Office Visit [facility] Oncology and Hematology - [place] [address] [facility] [address] [place] [address] Kris Molina MD 2[address] [facility] [address] [place] [address] Chronic anemia (Primary Dx) Social [...] Contact Info) Description 03/28/2024 11:00 AM MEDICAL EDUCATION MANAGER Office Visit [facility] Oncology and Hematology - [place] [address] Kristof[address] [facility] [address] [place] [address] Kris Molina MD [address] [facility] [address] [place] [address] documented as of this encounter Visit Diagnoses Diagnosis Chronic anemia- Primary Anemia, unspecified documented in this encounter Care Teams Stave Saw Operator Relationship Specialty Start Date End Date Jade Moore ANP [address] [address] PCP - General Nurse Practitioner Adult Health 02/17/21 documented as of this encounter
--- OUTSIDE RECORDS SUMMARY | 2024-03-26 17:29 | XMS_ITS | Encounter Summary ---
Author Organization [facility] [employer] [facility] Address [address] [place] [address] Care Team Providers Care Deboner Name Role Phone Jade Moore JOLIE Primary Care Provider [phone] Encounter Details Date Type Department Care Team (Late st Contact Info) Description 09/08/2023 Orders Only [facility] Oncology and Hematology [facility] [address] Kristofer Augustin [address] [place] [phone] Scanning, Provider Social History Tobacco Use Types Packs/Day Years Used Date Smoking Tobacco: Never Smokeless Tobacco: Never Sex and Gender Information Value Date Recorded Sex Assigned at Not on file Gender Identity Not on file Sexual Orientation Not on file documented as of this encounter Plan of Treatment Upcoming Encounters Date Type Department Care Team (Late st Contact Info) Description 03/28/2024 11:00 AM SMALL ARMS REPAIRER Office Visit [facility] Oncology and Hematology - [place] [address] Augustin [address] [place] [address] Kris Molina MD [address] [facility] [address] [place] [address] documented as of this encounter Procedures Procedure Name Priority Date/Time Associated Diagnosis Comments COMPREHENSIVE METABOLIC PANEL Routine 09/07/2023 9:55 AM CDT documented in this encounter Results * COMPREHENSIVE METABOLIC PANEL (09/07/2023 9:55 AM CDT) Blood Provider Scanning CHEMISTRY ORDERABLES documented in this encounter Visit Diagnoses Not on filedocumented in this encounter Care Teams Deboner Relationship Specialty Start Date End Date Jade Moore ANP [address] [address] PCP - General Nurse Practitioner Adult Health 02/17/21 documented as of this encounter
--- OUTSIDE RECORDS SUMMARY | 2024-03-26 17:29 | XMS_ITS | Encounter Summary ---
Author Organization [facility] [employer] [facility] Address [address] [place] [address] Care Team Providers Care Jumpbasting Collar Baster Name Role Phone Jade Moore Primary Care Provider [phone] Encounter Details Date Type Department Care Team ([facility] Contact Info) Description 05/31/2021 Orders Only [facility] Oncology and Hematology - [place] [address] August[address] [place] [address] Cherie Jo Chronic anemia Social [...] COVID-19? No / Unsure 05/26/2021 9:49 AM VETERINARY ASSISTANT TECHNICIAN documented as of this encounter Plan of Treatment Upcoming Encounters Date Type Department Care Team (Late Contact Info) Description 03/28/2024 11:00 AM VETERINARY ASSISTANT TECHNICIAN Office Visit [facility] Oncology and Hematology - [place] [address] Kris[address]in [address] [place] [address] Kris Molina MD [address] [facility] [address] [place] [address] documented as of this encounter Visit Diagnoses Diagnosis Chronic anemia Anemia, unspecified documented in this encounter Care Teams Jumpbasting Collar Baster Relationship Specialty Start Date End Date Jade Moore ANP [address] [phone] PCP - General Nurse Practitioner Adult Health 02/17/21 documented as of this encounter
--- OUTSIDE RECORDS SUMMARY | 2024-03-26 17:29 | XMS_ITS | Encounter Summary ---
Author Organization [facility] [employer] [facility] Address [address] [place] [address] Care Team Providers Care Radiation Oncology Therapist Name Role Phone Jade Moore JOLIE Primary Care Provider [phone] Encounter Details Date Type Department Care Team (Late Contact Info) Description 02/18/2021 Orders Only [facility] Oncology and Hematology [facility] [address]of[address] Augustin [address] [place] [address] Kris Molina MD [facility] [employer] [address] [place] [address] Chronic anemia Social History Tobacco Use [...] COVID-19? No / Unsure 02/17/2021 2:30 PM BELLY DUMP DRIVER documented as of this encounter Plan of Treatment Upcoming Encounters Date Type Department Care Team (Late Contact Info) Description 03/28/2024 11:00 AM BELLY DUMP DRIVER Office Visit [facility] Oncology and Hematology - [place] Edwin Augustin [address] [place] [address] Kris Molina MD [address] [employer] [address] [place] [address] [phone] (work) documented as of this encounter Procedures Procedure Name Priority Date/Time Associated Diagnosis Comments IRON, TIBC, AND PERCENT SATURATION Routine 05/24/2021 6:30 AM BELLY DUMP DRIVER Chronic anemia FERRITIN Routine 05/24/2021 6:30 AM BELLY DUMP DRIVER Chronic anemia IRON, TIBC, AND PERCENT SATURATION Routine 04/13/2021 7:17 AM BELLY DUMP DRIVER Chronic anemia VITAMIN B12 LEVEL Routine 04/13/2021 7:1 7 AM BELLY DUMP DRIVER Chronic anemia documented in this encounter Results * FERRITIN (05/24/2021 6:30 AM BELLY DUMP DRIVER) FERRITIN 60 16 - 232 ng/mL [facility] Comment: Test Performed at: [facility] ??[phone] Ismael Savage D.O., MPH Blood 05/24/2021 6:30 AM BELLY DUMP DRIVER 05/24/2021 6:30 AM BELLY DUMP DRIVER Kris Molina MD CHEMISTRY ORDERABLES [facility] [address] [place] [address] * IRON, TIBC, AND PERCENT SATURATION (05/24/2021 6:30 AM BELLY DUMP DRIVER) IRON 58 40 - 190 mcg/dL [facility] TIBC 358 250 - 450 mcg/dL (calc) [facility] IRON % SATURATION 16 16 - 45 % (calc) [facility] Comment: Test Performed at: [facility] ??[phone] Ismael Savage D.O., MPH Blood 05/24/2021 6:30 AM BELLY DUMP DRIVER 05/24/2021 6:30 AM BELLY DUMP DRIVER Kris Molina MD CHEMISTRY ORDERABLES Performing Organization Address [facility] Co de Phone Number [facility] [address] [place] [address] * IRON, TIBC, AND PERCENT SATURATION (04/13/2021 7:17 AM BELLY DUMP DRIVER) IRON 69 40 - 190 mcg/dL [facility] TIBC 348 250 - 450 mcg/dL (calc) [facility] IRON % SATURATION 20 16 - 45 % (calc) [facility] Comment: Test Performed at: [facility] [address] [place] [address] ??[phone] Ismael Savage D.O., MPH Blood 04/13/2021 7:17 AM BELLY DUMP DRIVER 04/13/2021 7:18 AM BELLY DUMP DRIVER Kris Molina MD CHEMISTRY ORDERABLES Performing Organization Address [facility] de Phone Number [facility] [address] [place] [address] * VITAMIN B12 LEVEL (04/13/2021 7:17 AM BELLY DUMP DRIVER) VITAMIN B12 409 200 - 1100 pg/mL [facility] Comment: Test Performed at: [facility] [address] [place] [address] ??[phone] Ismael Savage D.O., MPH Blood 04/13/2021 7:17 AM BELLY DUMP DRIVER 04/13/2021 7:18 AM BELLY DUMP DRIVER Kris Molina MD CHEMISTRY ORDERABLES Performing Organization Address [facility] Co de Phone Number [facility] [address] [place] [address] documented in this encounter Visit Diagnoses Diagnosis Chronic anemia Anemia, unspecified documented in this encounter Care Teams Radiation Oncology Therapist Relationship Specialty Start Date End Date Jade Moore ANP [address] [address] PCP - General Nurse Practitioner Adult Health 02/17/21 documented as of this encounter
--- OUTSIDE RECORDS SUMMARY | 2024-03-26 17:29 | XMS_ITS | Encounter Summary ---
Author Organization [facility] Address [address] [place] [address] Care Team Providers Care Chief Orthoptist Name Role Phone Jade Moore Primary Care Provider [phone] Encounter Details Date Type Department Care Team [...] st Contact Info) Description 03/28/2024 11:00 AM ENROLLMENT MANAGER Office Visit [facility] Oncology and Hematology - [place] [address] [facility] [address] [place] [address] Kris Molina MD [address] [facility] [address] [place] [address] documented as of this encounter Visit Diagnoses Diagnosis Enlargement of lymph nodes- Primary documented in this encounter Care Teams Chief Orthoptist Relationship Specialty Start Date End Date Jade Moore ANP [address] [facility] [address] [place] [address] PCP - General Nurse Practitioner Adult Health 02/17/21 documented as of this encounter
== END 2024-03-19 10:25 | disposition home or self-care (01) ==
PROVIDERS: Emergency Provider Nurse Practitioner; PCP Nurse Practitioner Adult Health
DX: B34.9 Viral infection, unspecified (principal); Z20.822 Contact with and (suspected) exposure to COVID-19; K21.9 Gastro-esophageal reflux disease without esophagitis; D64.9 Anemia, unspecified
CPT/HCPCS: 71046; 87426; 87804; 99212; 99213; G0463

== ENCOUNTER 2024-09-24 06:53 | Outpatient (CLI) | payer OTHER, SELFPAY ==
--- OUTSIDE RECORDS SUMMARY | 2024-09-24 06:56 | XMS_ITS | Encounter Summary ---
Author Organization [facility] Address [address] [place] [address] Care Team Providers Care Heavy Duty Truck Mechanic Name Role Phone Jade Moore Primary Care Provider [phone] Encounter Details Date Type Department Care Team (Latest Contact Info) Description 09/14/1998 Inpatient Historical HIS PATIENT IN A BED Holly Moreira MD NO ADDRESS ON FILE Unspecified indication for care or intervention related to labor and delivery, delivered (Primary Dx) Social History Tobacco Use Types Packs/Day Years Used Date Smoking Tobacco: Never Assessed Comments Unknown Sex and Gender Information Value Date Recorded Sex Assigned at Not on file Legal Sex Female 5:06 AM TAPE RULES PRINTING MACHINE OPERATOR Gender Identity Not on file Sexual Orientation Not on file documented as of this encounter Plan of Treatment Upcoming Encounters Date Type Department Care Team (Late st Contact Info) Description 09/27/2024 9:00 AM CDT Office Visit [facility] Oncology and Hematology - [place] [address] [facility] [address] [place] [address] Kris Molina MD [address] [facility] [address] [place] [address] documented as of this encounter Visit Diagnoses Diagnosis Unspecified indication for care or intervention related to labor and delivery, delivered- Primary documented in this encounter Care Teams Heavy Duty Truck Mechanic Relationship Specialty Start Date End Date Jade Moore ANP [address] [address] PCP - General Nurse Practitioner Adult Health 02/17/21 documented as of this encounter
--- OUTSIDE RECORDS SUMMARY | 2024-09-24 06:56 | XMS_ITS | Clinical Summary ---
Author Organization [facility] Address [address] [place] [address] Care Team Providers Care House Mover Name Role Phone Jade Moore Primary Care Provider [phone] Allergies No known active allergies Medications ferrous sulfate 325 mg (65 mg iron) tablet Take 325 mg by mouth daily. Active metFORMIN (GLUCOPHAGE XR) 500 mg Extended Release 24 hour tablet Take 1 Tablet by mouth daily. 06/30/2023 Active CYANOCOBALAMIN, VITAMIN B-12, ORAL Take by mouth. Active CHOLECALCIFEROL, VITAMIN D3, ORAL Take by mouth. Active Active Problems Problem Noted Date Diagnosed Date Iron deficiency anemia 02/17/2021 Encounters Date Type Department Care Team Description 09/04/2024 External Device Data STL ABSTRACTION Provider, Abstract 08/27/2024 External Device Data STL ABSTRACTION Provider, Abstract 08/27/2024 External Device Data ST[facility] ABSTRACTION Provider, Abstract 08/08/2024 External Device Data ST[facility] ABSTRACTION Provider, Abstract 08/08/2024 External Device Data ST[facility] ABSTRACTION Provider, Abstract 08/07/2024 External Device Data STL ABSTRACTION Provider, Abstract 07/02/2024 External Device Data STL ABSTRACTION Provider, Abstract from Last 3 Months Immunizations Immunization Administration Dates Next Due (SANIA) COVID-19 VACCINE - EMERGENCY USE AUTHORIZATION, AD26,COV2S(PF) 0.5 ML IM SUSP 05/22/2020 Social History Tobacco Use Types Packs/Day Years Used Date Smoking Tobacco: Never Smokeless Tobacco: Never Comments Unknown Sex and Gender Information Value Date Recorded Sex Assigned at Not on file Legal Sex Female 5:06 AM PYRIDINE RECOVERY OPERATOR Gender Identity Not on file Sexual Orientation Not on file Last Filed Vital Signs Vital Sign Reading Time Taken Comments Blood Pressure 123/76 03/28/2024 10:52 AM PYRIDINE RECOVERY OPERATOR Pulse 92 03/28/2024 10:52 AM PYRIDINE RECOVERY OPERATOR Temperature 36.2 C (97.1 F) 03/28/2024 10:52 AM PYRIDINE RECOVERY OPERATOR Respiratory Rate 17 03/28/2024 10:5 2 AM PYRIDINE RECOVERY OPERATOR Oxygen Saturation 97% 03/28/2024 10: 52 AM PYRIDINE RECOVERY OPERATOR Inhaled Oxygen Concentration - - Weight 98.3 kg (216 lb 12.8 oz) 025 10:52 AM PYRIDINE RECOVERY OPERATOR Height 165.1 cm (5' 5) 11/30/2021 11:5 1 AM CDT Body Mass Index 36.08 11/30/2021 11:51 AM CDT Plan of Treatment Upcoming Encounters Date Type Department Care Team (Late st Contact Info) Description 09/27/2024 9:00 AM CDT Office Visit [facility] Oncology and Hematology [place] [address] [place] [address] [facility] [address] [place] [address] Kris Molina MD [address] [facility] [address] [place] [address] Health Maintenance Due Date Last Done Comments Pre-Diabetes and Diabetes Screening 1971 DTAP/TDAP/TD VACCINES (1 - Tdap) 09/05/1990 HEPATITIS B VACCINES (1 of 3 - 19+ 3-dose series) 08/18 HPV/Cotest (21-29) 09/05/1992 CERVICAL CANCER SCREENING 09/05/2001 HPV/Cotest (30-65) 09/05/2001 PAP SMEAR 09/05/2001 BREAST CANCER SCREENING 2011 COLORECTAL SCREENING 09/05/2016 Colorectal Cancer Screening 09/05/2016 FIT-DNA Q 3 years 09/05/2016 FIT/FOBT Q 1 year 09/05/2016 Flex Sig/CT Colonography Q 5 years 09/05/2016 ZOSTER VACCINE (1 of 2) 09/05/2021 COVID-19 Vaccine (2 - season) 2023 03/ 07/2020 INFLUENZA VACCINE (#1) 2024 Insurance AETNA CHOICE POS II AETNA CHOICE POS II Care Teams House Mover Relationship Specialty Start Date End Date Jade Moore ANP [address] [address] PCP - General Nurse Practitioner Adult Health 02/17/21
--- OUTSIDE RECORDS SUMMARY | 2024-09-24 06:56 | XMS_ITS | Encounter Summary ---
Author Organization [facility] Address [address] [place] [address] Care Team Providers Care Knapsack Sprayer Name Role Phone Jade Moore Primary Care Provider [phone] Encounter Details Date Type Department Care Team (Latest Contact Info) Description 01/20/2000 Outpatient Historical [facility] Ismael Allen Enlargement of lymph nodes (Primary Dx) Social History Tobacco Use Types Packs/Day Years Used Date Smoking Tobacco: Never Assessed Comments Unknown Sex and Gender Information Value Date Recorded Sex Assigned at Not on file Legal Sex Female 5:06 AM HEALTHCARE NETWORK PRICING CONSULTANT Gender Identity Not on file Sexual Orientation Not on file documented as of this encounter Plan of Treatment Upcoming Encounters Date Type Department Care Team (Late st Contact Info) Description 09/27/2024 9:00 AM CDT Office Visit [facility] Oncology and Hematology - [place] 2227 [facility] [address] [place] [address] Kris Molina MD [address] [facility] [address] [place] [address] documented as of this encounter Visit Diagnoses Diagnosis Enlargement of lymph nodes- Primary documented in this encounter Care Teams Knapsack Sprayer Relationship Specialty Start Date End Date Jade Moore ANP [address] [address] PCP - General Nurse Practitioner Adult Health 02/17/21 documented as of this encounter
--- OUTSIDE RECORDS SUMMARY | 2024-09-24 06:56 | XMS_ITS | Referral Summary ---
Author Organization [facility] Address [address] [place] [address] Care Team Providers Care Legal Associate Name Role Phone Jade Moore NP Primary Care Provider [phone] Encounters Date Type Department Care Team Description 07/02/2024 1:12 PM CDT - 07/02/2024 4:17 PM CDT Emergency [facility] Emergency Department [address] [place] [address] Knee effusion, left (Primary Dx); Osteoarthritis of left knee, unspecified osteoarthritis type Discharge Disposition: Discharge to home or self care from Last 3 Months Allergies No known active allergies Medications celecoxib (CeleBREX) 200 mg capsuleIndications :Knee effusion, left,Osteoarthriti s of left knee, unspecified osteoarthritis type Take 1 capsule (200 mg total) by mouth 2 (two) times a day P.r.n. pain and swelling. Collaborating physician Kosta Waller MD 30 capsule 07/03/19 25 Active traMADol-acetamino phen (ULTRACET) 37.5-325 mg per tabletIndications: Knee effusion, left,Osteoarthriti s of left knee, unspecified osteoarthritis type Take 1 tablet by mouth every 8 (eight) hours as needed for pain PRN pain not relieved by celecoxib alone. Take with food. Collaborating physician Kosta Waller MD 20 tablet 07/03/19 25 Active Active Problems Problem Noted Date Diagnosed Date Knee effusion, left 07/02/2024 Osteoarthritis of left knee 07/02/2024 Social History Tobacco Use Types Packs/Day Years Used Date Smoking Tobacco: Never Tobacco Cessation:Counseling Given: Not Answered Alcohol Use Standard Drinks/Week Comments Yes 0 (1 standard drink = 0.6 oz pur e alcohol) socially Personal Safety Answer Date Recorded Have you ever been in or are you currently in a harmful physical or emotional relationship or is someone making you feel afraid or unsafe? Denies 07/02/2024 Sex and Gender Information Value Date Recorded Sex Assigned at Not on file Legal Sex Male 12:24 PM ASPHALT COATER Gender Identity Not on file Sexual Orientation Not on file Last Filed Vital Signs Vital Sign Reading Time Taken Comments Blood Pressure 130/74 07/02/2024 4:17 PM CDT Pulse 75 07/02/2024 4:17 PM CDT Temperature 36.7 C (98.1 F) 07/02/2024 1:08 PM CDT Respiratory Rate 20 07/02/2024 4:17 PM CDT Oxygen Saturation 98% 07/02/2024 4:17 PM CDT Inhaled Oxygen Concentration - - Weight 95.3 kg (210 lb) 07/02/2024 1:08 PM CDT Height - - Body Mass Index - - Plan of Treatment Not on file Procedures Procedure Name Priority Date/Time Associated Diagnosis Comments US VEIN DUPLEX LOWER EXTREMITY LEFT LIMITED ED 07/02/2024 2:48 PM CDT XR KNEE LEFT 3 VIEWS ED 07/02/2024 1:16 PM CDT from Last 3 Months Results * US VEIN DUPLEX LOWER EXTREMITY LEFT LIMITED, UNILATERAL (07/02/2024 2:48 PM CDT) Anatomical Region Laterality Modality Vascular Left Ultrasound 07/02/2024 3:47 PM CDT Narrative 07/02/2024 4:04 PM CDT EXAM DESCRIPTION: US VEIN DUPLEX LOWER EXTREMITY LEFT LIMITED, UNILATERAL REASON FOR STUDY: Left calf and posterior knee pain for 3 days TECHNIQUE: Duplex scan using the B-mode, spectral Doppler, and color-flow Doppler of the deep venous system of the left lower extremity was performed. Images stored on PACS. COMPARISON: None FINDINGS: The common femoral, common femoral-saphenous vein confluence, visualized profunda femoral, superficial femoral, and popliteal veins are readily compressible with no intraluminal thrombus on gandara scale images. There is normal color and spectral Doppler signal, including augmentation. Greater saphenous vein appears patent. Visualized calf veins are patent. IMPRESSION: No left lower extremity deep venous thrombosis. THIS IS AN ELECTRONICALLY VERIFIED FINAL REPORT 07/02/2024 4:04 PM - Electronically signed by Tom Burton M.D. AM: AM Report ID: [id number] Reading Location: [id number] Procedure Note Tom Burton MD - 07/02/2024 EXAM DESCRIPTION: US VEIN DUPLEX LOWER EXTREMITY LEFT LIMITED,UNILATERAL REASON FOR STUDY: Left calf and posterior knee pain for 3 days TECHNIQUE: Duplex scan using the B-mode, spectral Doppler, and color-flow Doppler of the deep venous system of the left lower extremity wasperformed. Images stored on PACS. COMPARISON: None FINDINGS: The common femoral, common femoral-saphenous vein confluence, visualized profunda femoral, superficial femoral, and popliteal veins are readily compressible with no intraluminal thrombus on gandara scale images. There is normal color and spectral Doppler signal, including augmentation. Greater saphenous vein appears patent. Visualized calf veins are patent. IMPRESSION: No left lower extremity deep venous thrombosis. THIS IS AN ELECTRONICALLY VERIFIED FINAL REPORT 07/02/2024 4:04 PM - Electronically signed by Tom Burton M.D. AM: AM Report ID: [id number] Reading Location: [id number] us Yaya LEON IMG US PROCEDURES Final Resu lt * XR Knee Left 3 Views (07/02/2024 1:16 PM CDT) Anatomical Region Laterality Modality Lower Extremities, Knee Left Computed Radiography 07/02/2024 2:26 PM CDT Narrative 07/02/2024 2:27 PM CDT EXAM DESCRIPTION: XR KNEE LEFT 3 VIEWS REASON FOR STUDY: pain c/o left knee pain and swelling x 3 days. Pt states she was walking her dog and might have injured it. TECHNIQUE: Three views COMPARISON: None available FINDINGS: No acute fracture or dislocation. No lytic or destructive process. Moderate degenerative changes all compartments with sclerosis and spur formation. Small suprapatellar joint effusion. IMPRESSION: Moderate degenerative changes left knee with small suprapatellar joint effusion. THIS IS AN ELECTRONICALLY VERIFIED FINAL REPORT 07/02/2024 2:27 PM - Electronically signed by Wiliam Pinto M.D. RB: RB Report ID: [id number] Reading Location: [id number] Procedure Note Wiliam Pinto MD - 07/02/2024 EXAM DESCRIPTION: XR KNEE LEFT 3 VIEWS REASON FOR STUDY: pain c/o left knee pain and swelling x 3 days. Pt states she was walking herdog and might have injured it. TECHNIQUE: Three views COMPARISON: None available FINDINGS: No acute fracture or dislocation. No lytic or destructive process. Moderate degenerative changes all compartments with sclerosis and spur formation. Small suprapatellar joint effusion. IMPRESSION: Moderate degenerative changes left knee with small suprapatellar joint effusion. THIS IS AN ELECTRONICALLY VERIFIED FINAL REPORT 07/02/2024 2:27 PM - Electronically signed by Wiliam Pinto M.D. RB: RB Report ID: [id number] Reading Location: [id number] Yaya LEON IMG XR PROCEDURES Final Resu lt from Last 3 Months Insurance [facility] Care Teams Legal Associate Relationship Specialty Start Date End Date Jade Moore NP [facility] [place] [address] PCP - General Nurse Practitioner 07/02/24
--- OUTSIDE RECORDS SUMMARY | 2024-09-24 06:56 | XMS_ITS | Encounter Summary ---
Author Organization [facility] Address [address] [place] [address] Care Team Providers Care Hand Model Name Role Phone Jade Moore Primary Care Provider [phone] Encounter Details Date Type Department Care Team (Latest Contact Info) Description 08/23/2001 Inpatient Historical HIS PATIENT IN A BED MoreiraHolly MD NO ADDRESS ON FILE PREV DELIVERY NOS-DELIVER (Primary Dx) Social History Tobacco Use Types Packs/Day Years Used Date Smoking Tobacco: Never Assessed Comments Unknown Sex and Gender Information Value Date Recorded Sex Assigned at Not on file Legal Sex Female 5:06 AM ADMISSIONS DEAN Gender Identity Not on file Sexual Orientation Not on file documented as of this encounter Plan of Treatment Upcoming Encounters Date Type Department Care Team (Late st Contact Info) Description 09/27/2024 9:00 AM CDT Office Visit [facility] Oncology and Hematology - [place] [address] [facility] [address] [place] [address] Kris Molina MD [address] [facility] [address] [place] [address] documented as of this encounter Visit Diagnoses Diagnosis Previous delivery, delivered, with or without mention of antepartum condition- Primary documented in this encounter Care Teams Hand Model Relationship Specialty Start Date End Date Jade Moore ANP [address] [address] PCP - General Nurse Practitioner Adult Health 02/17/21 documented as of this encounter
--- OUTSIDE RECORDS SUMMARY | 2024-09-24 06:56 | XMS_ITS | Encounter Summary ---
Author Organization [facility] Address 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 [address] [place] [address] Kris Molina MD [address] [facility] [address] [place] [address] documented as of this encounter Visit Diagnoses Diagnosis Threatened premature labor, antepartum(644.03)- Primary Threatened premature labor, antepartum documented in this encounter Care Teams Ui Developer Designer Relationship Specialty Start Date End Date Jade Moore ANP [address] [facility] [address] [place] [address] PCP - General Nurse Practitioner Adult Health 02/17/21 documented as of this encounter
--- OUTSIDE RECORDS SUMMARY | 2024-09-24 06:56 | XMS_ITS | Encounter Summary ---
Author Organization [facility] Address 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 [address] [place] [address] Kris Molina MD [address] [facility] [address] [place] [address] documented as of this encounter Visit Diagnoses Diagnosis Other disorders of ear(388.8)- Primary Other disorders of ear documented in this encounter Care Teams Pedodontist Relationship Specialty Start Date End Date Jade Moore ANP [address] [address] PCP - General Nurse Practitioner Adult Health 02/17/21 documented as of this encounter
--- OUTSIDE RECORDS SUMMARY | 2024-09-24 06:56 | XMS_ITS | Encounter Summary ---
Author Organization [facility] Address 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 Gender Identity Not on file Sexual Orientation Not on file documented as of this encounter Plan of Treatment Upcoming Encounters Date Type Department Care Team (Late st Contact Info) Description 09/27/2024 9:00 AM CDT Office Visit [facility] Oncology and Hematology - [place] [address] [facility] [address] [place] [address] Kris Molina MD [address] [facility] [address] [place] [address] documented as of this encounter Visit Diagnoses Diagnosis Calculus of gallbladder with other cholecystitis, without mention of obstruction- Primary documented in this encounter Care Teams Manufacturing Controller Relationship Specialty Start Date End Date Jade Moore ANP [address] [address] PCP - General Nurse Practitioner Adult Health 02/17/21 documented as of this encounter
--- OUTSIDE RECORDS SUMMARY | 2024-09-24 06:56 | XMS_ITS | Encounter Summary ---
Author Organization [facility] Address 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 Gender Identity Not on file Sexual Orientation Not on file documented as of this encounter Plan of Treatment Upcoming Encounters Date Type Department Care Team (Late st Contact Info) Description 09/27/2024 9:00 AM CDT Office Visit [facility] Oncology and Hematology - [place] [address] [facility] [address] [place] [address] Kris Molina MD [address] [facility] [address] [place] [address] documented as of this encounter Procedures Procedure Name Priority Date/Time Associated Diagnosis Comments BLOOD GAS CORD VENOUS Routine 04/27/2006 9:57 AM COSTUME RENTAL CLERK BLOOD GAS CORD ARTERIAL Routine 04/27/2006 9:57 AM COSTUME RENTAL CLERK CBC WITH DIFFERENTIAL Routine 04/26/2006 9:53 AM COSTUME RENTAL CLERK CBC WITH DIFFERENTIAL Routine 04/26/2006 9:53 AM COSTUME RENTAL CLERK URINALYSIS W/REFLEX MICROSCOPIC Routine 04/26/2006 9:53 AM COSTUME RENTAL CLERK documented in this encounter Results * (ABNORMAL) BLOOD GAS CORD VENOUS (04/27/2006 9:57 AM COSTUME RENTAL CLERK) PH CORD VENOUS 7.11(L) 7.23 - 7.46 [...] 22.5 g/dL INTERFACE SYSTEM 04/27/2006 9:57 AM COSTUME RENTAL CLERK Holly Moreira MD ABG ORDERABLES Ed ited INTERFACE SYSTEM Refer to clinic/hospital department * (ABNORMAL) BLOOD GAS CORD ARTERIAL (04/27/2006 9:57 AM COSTUME RENTAL CLERK) PH CORD ARTERIAL 7.08(L) 7.14 - 7.40 [...] 22.5 g/dL INTERFACE SYSTEM 04/27/2006 9:57 AM COSTUME RENTAL CLERK Holly Moreira MD ABG ORDERABLES Ed ited INTERFACE SYSTEM Refer to clinic/hospital department * (ABNORMAL) URINALYSIS (04/26/2006 9:53 AM COSTUME RENTAL CLERK) COLOR UA Yellow INTERFACE SYSTEM CLARITY UA [...] /HPF INT ERFACE SYSTEM 04/26/2006 9:53 AM COSTUME RENTAL CLERK us Holly Moreira MD URINE ORDERABLES E dited INTERFACE SYSTEM Refer to clinic/hospital department * (ABNORMAL) CBC WITH DIFFERENTIAL (04/26/2006 9:53 AM COSTUME RENTAL CLERK) NEUTROPHILS 77(H) 45 - 70 % INTERFAC [...] 0.20 K/uL INTERFACE SYSTEM 04/26/2006 9:53 AM COSTUME RENTAL CLERK us Holly Moreira MD HEMATOLOGY ORDERAB LES Edited INTERFACE SYSTEM Refer to clinic/hospital department * (ABNORMAL) CBC WITH DIFFERENTIAL (04/26/2006 9:53 AM COSTUME RENTAL CLERK) WBC 10.6(H) 4.0 - 9.8 K/uL INTERFACE [...] 12.4 fL INTERFACE SYSTEM 04/26/2006 9:53 AM COSTUME RENTAL CLERK us Holly Moreira MD HEMATOLOGY ORDERAB LES Edited Performing Organization Address City/State/[facility] Co de Phone Number INTERFACE SYSTEM Refer to clinic/hospital department documented in this encounter Visit Diagnoses Diagnosis Previous delivery, delivered, with or without mention of antepartum condition- Primary documented in this encounter Care Teams Public Health Engineer Relationship Specialty Start Date End Date Jade Moore ANP [address] [id number] PCP - General Nurse Practitioner Adult Health 02/17/21 documented as of this encounter
--- OUTSIDE RECORDS SUMMARY | 2024-09-24 06:56 | XMS_ITS | Clinical Summary ---
Author Organization [facility] Address [address] [place] [address] Care Team Providers Care Assistant Professor Of Radiology Name Role Phone Jade Moore NP Primary Care Provider [phone] Allergies No known active allergies Medications celecoxib [...] left 07/02/2024 Osteoarthritis of left knee 07/02/2024 Encounters Date Type Department Care Team Description 07/02/2024 1:12 PM CDT - 07/02/2024 4:17 PM CDT Emergency [facility] Emergency Department [address] [place], [place] [id number] Knee effusion, left (Primary Dx); Osteoarthritis of left knee, unspecified osteoarthritis type Discharge Disposition: Discharge to home or self care from Last 3 Months Medical History Medical History Date Comments Pre-diabetes Social History Tobacco Use Types Packs/Day Years [...] on file Legal Sex Male 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 AM: AM Report ID: [id number] Reading Location: [id number] Procedure Note Tom Burton MD - 07/02/2024 [...] Tom Burton M.D. AM: AM Report ID: [id number] Reading Location: [id number] Yaya LEON IMG US PROCEDURES Final Resu [...] Wiliam Pinto M.D. RB: RB Report ID: [id number] Reading Location: [id number] Procedure Note Wiliam Pinto MD - 07/02/2024 [...] Wiliam Pinto M.D. RB: RB Report ID: [id number] Reading Location: [id number] Yaya LEON G XR PROCEDURES Final Resu lt from Last 3 Months Insurance [facility] Care Teams Assistant Professor Of Radiology Relationship Specialty Start Date End Date Jade Moore NP [facility] [address] PCP - General Nurse Practitioner 07/02/24
[2024-09-24 19:38] LABS: Alanine Aminotransferase 22 U/L (6-35); Albumin Level 4.1 g/dL (3.5-5.1); Alkaline Phosphatase 108 U/L (38-126); Anion Gap 7 mmol/L (4-12); Aspartate Amino Transferase 62 U/L (14-36); Bilirubin,Total 0.4 mg/dL (0.2-1.3); Blood Urea Nitrogen 16 mg/dL (7-17); Calcium 10.0 mg/dL (8.4-10.2); Carbon Dioxide 26 mmol/L (22-30); Chloride 105 mmol/L (98-107); Cholesterol 191 mg/dL (0-200); Estimated Glomerular Filt Rate 59; Glucose 100 mg/dL (65-110); HDL Direct 53 mg/dL; Hematocrit 41.6 % (37.0-47.0); Hemoglobin 12.8 g/dL (12.0-15.0); Mean Corpuscular HGB Conc 30.8 g/dl (32-36); Mean Corpuscular Hemoglobin 27.8 pg (26-34); Mean Corpuscular Volume 90.2 fl (80-100); Platelet Count Result 213 k/mm3 (150-375); Potassium 4.0 mmol/L (3.4-5.0); Red Blood Count 4.61 M/mm3 (4.2-5.4); Sodium 138 mmol/L (137-145); Total Protein 7.7 g/dL (6.3-8.2); Triglycerides 144 mg/dL (<150); White Blood Count 8.4 K/mm3 (4.5-10.0)
[2024-09-24 19:48] LABS: Transferrin 317 mg/dL (206-381)
[2024-09-24 19:54] LABS: Iron 77 ug/dL (37-170)
[2024-09-24 20:04] LABS: Percent Iron Saturation 18 % (20-50)
[2024-09-24 20:09] LABS: Thyroid Stimulating Hormone 2.620 uIU/mL (0.465-4.680)
[2024-09-24 20:10] LABS: Hemoglobin A1C 5.6 % (<5.7)
[2024-09-24 20:12] LABS: Ferritin 20.00 ng/mL (11.1-264)
[2024-09-24 20:28] LABS: Vitamin B12 936.0 pg/mL (239-931)
[2024-09-24 21:11] LABS: Vitamin B12 976.0 pg/mL (239-931)
== END 2024-09-24 06:54 | disposition home or self-care (01) ==
PROVIDERS: PCP Nurse Practitioner Adult Health; Visit Provider Internal Medicine Hematology & Oncology
DX: R73.03 Prediabetes (principal); D64.9 Anemia, unspecified
CPT/HCPCS: 36415; 80053; 80061; 82607; 82728; 82746; 83036; 83540; 83550; 84443; 84466; 85027